=== PATIENT | male | born 1955 | race Caucasian/White ===

== ENCOUNTER 2024-04-10 17:18 | Emergency (ER) | payer SELFPAY ==
[2024-04-10 17:30] VITALS: BP 176/102; PULSE 96; RESP 19; TEMP 98.4
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
== END 2024-04-10 19:21 | disposition left against medical advice (07) ==
LOC: EC 17:18
CPT/HCPCS: 71046; 72170; 93005; 99284

== ENCOUNTER 2024-04-28 09:39 | Emergency (ER) | payer MEDICARE ==
[2024-04-28 10:02] VITALS: RESP 18
--- NOTE | 2024-04-28 10:07 | ED ---
General Adult HPI - General Chief complaint: Upper Respiratory Infection Stated complaint: congestion/cough Time Seen by Provider: 04/28/24 09:51 Source: patient, RN notes reviewed Mode of arrival: ambulatory Limitations: no limitations - History of Present Illness Initial comments: This is a 68-year-old male presents the emergency department chief complaint of congestion, cough, anterior chest wall pain, body aches. States that his symptoms have been ongoing over the past 3 to 5 days. States that he is currently living in a care home where multiple people at the house are also exhibiting similar symptoms. He denies chest pain, heart palpitations, dizziness, lightheadedness. He also endorses body aches. Denies recent antibiotic use. - Related Data Allergies Allergy/AdvReac Type Severity Reaction Status Date / Time No Known Allergies Allergy Verified 04/28/24 09:47 Review of Systems ROS Statement: Those systems with pertinent positive or pertinent negative responses have been documented in the HPI. ROS Other: All systems not noted in ROS Statement are negative. Past Medical History Past Medical History: Diabetes Mellitus, Osteoarthritis (OA) History of Any Multi-Drug Resistant Organisms: None Reported Additional Past Surgical History / Comment(s): Left foot surgery 2013 Past Psychological History: No Psychological Hx Reported Smoking Status: Never smoker Past Alcohol Use History: None Reported Past Drug Use History: None Reported General Exam Limitations: no limitations General appearance: alert, in no apparent distress Eye exam: Present: normal appearance, PERRL, EOMI. Absent: scleral icterus, conjunctival injection, periorbital swelling ENT exam: Present: normal exam, mucous membranes moist Neck exam: Present: normal inspection. Absent: tenderness, meningismus, lymphadenopathy Respiratory exam: Present: normal lung sounds bilaterally. Absent: respiratory distress, wheezes, rales, rhonchi, stridor Cardiovascular Exam: Present: regular rate, normal rhythm, normal heart sounds. Absent: systolic murmur, diastolic murmur, rubs, gallop, clicks GI/Abdominal exam: Present: soft, normal bowel sounds. Absent: distended, tenderness, guarding, rebound, rigid Extremities exam: Present: normal inspection, full ROM, normal capillary refill. Absent: tenderness, pedal edema, joint swelling, calf tenderness Back exam: Present: normal inspection Neurological exam: Present: alert, oriented X3, CN II-XII intact Skin exam: Present: warm, dry, intact, normal color. Absent: rash Course Vital Signs 04/28/24 04/28/24 04/28/24 09:49 09:58 12:18 Temperature 97.4 F L 98.2 F Pulse Rate 100 83 Respiratory 26 H 18 18 Rate Blood Pressure 117/74 151/80 O2 Sat by Pulse 98 99 Oximetry Medical Decision Making - Medical Decision Making Was pt. sent in by a medical professional or institution (, DECLAN, MANUFACTURING WEAVER, urgent care, hospital, or custodial...) When possible be specific @ -No Did you speak to anyone other than the patient for history (EMS, parent, family, police, friend...)? What history was obtained from this source @ -No Did you review nursing and triage notes (agree or disagree)? Why? @ -I reviewed and agree with nursing and triage notes Were old charts reviewed (outside hosp., previous admission, EMS record, old EKG, old radiological studies, urgent care reports/EKG's, custodial records)? Report findings @ -No old charts were reviewed Differential Diagnosis (chest pain, altered mental status, abdominal pain women, abdominal pain men, vaginal bleeding, weakness, fever, dyspnea, syncope, headache, dizziness, GI bleed, back pain, seizure, CVA, palpatations, mental health, musculoskeletal)? @ -COVID 19, RSV, influenza, pneumonia, acute bronchitis, URI, this list is not all inclusive EKG interpreted by me (3pts min.). @ -None X-rays interpreted by me (1pt min.). @ -Chest x-ray reveals no acute cardiopulmonary process or disease with COPD changes CT interpreted by me (1pt min.). @ -None done U/S interpreted by me (1pt. min.). @ -None done What testing was considered but not performed or refused? (CT, X-rays, U/S, labs)? Why? @ -None What meds were considered but not given or refused? Why? @ -None Did you discuss the management of the patient with other professionals (professionals i.e. DECLAN Byrd, MANUFACTURING WEAVER, lab, RT, psych nurse, social organization professor, varnish thinner, teacher, senior commercial loan officer, case resource manager)? Give summary @ -No Was smoking cessation discussed for >3mins.? @ -No Was critical care preformed (if so, how long)? @ -No Were there social determinants of health that impacted care today? How? (Homelessness, low income, unemployed, alcoholism, drug addiction, transportation, low edu. Level, literacy, decrease access to med. care, senior living, rehab)? @ -No Was there de-escalation of care discussed even if they declined (Discuss DNR or withdrawal of care, Hospice)? DNR status @ -No What co-morbidities impacted this encounter? (DM, HTN, Smoking, COPD, CAD, Cancer, CVA, ARF, Chemo, Hep., AIDS, mental health diagnosis, sleep apnea, morbid obesity)? @ -None Was patient admitted / discharged? Hospital course, mention meds given and route, prescriptions, significant lab abnormalities, going to OR and other pertinent info. @ -Discharge. 68-year-old male with upper respiratory infection symptoms. On my evaluation patient is resting company no signs acute distress. His vitals are stable. Is noted to have reproducible anterior chest wall pain to palpation states that he is also exacerbated with coughing and deep inhalation. Patient's symptoms are most likely musculoskeletal related to infection rather than cardiac in nature. Patient is provided with Tylenol pending laboratory results and x-ray. X-ray relatively unremarkable for COPD changes. Patient is negative for COVID, flu, RSV, and strep. Patient provided with dose of Solu-Medrol with mild wheezing on examination. Recommend that he continue supportive treatment at home and return to the emergency room for any new or worsening symptoms. Case discussed with my attending Dr. Kline Undiagnosed new problem with uncertain prognosis? @ -No Drug Therapy requiring intensive monitoring for toxicity (Heparin, Nitro, Insulin, Cardizem)? @ -No Were any procedures done? @ -No Diagnosis/symptom? @ -congestion, cough, viral syndrome Acute, or Chronic, or Acute on Chronic? @ -Acute Uncomplicated (without systemic symptoms) or Complicated (systemic symptoms)? @ -Uncomplicated Side effects of treatment? @ -No Exacerbation, Progression, or Severe Exacerbation? @ -No Poses a threat to life or bodily function? How? (Chest pain, [place], [place], pneumonia, PE, COPD, DKA, ARF, appy, cholecystitis, CVA, Diverticulitis, Homicidal, Suicidal, threat to staff... and all critical care pts) @ -No - Lab Data Lab Results 04/28/24 04/28/24 Range/Units 10:46 10:46 Influenza Type A (PCR) Not Detected (Not Detectd) Influenza Type B (PCR) Not Detected (Not Detectd) RSV (PCR) Not Detected (Not Detectd) SARS-CoV-2 (PCR) Not Detected (Not Detectd) Group A Strep (PCR) NOT DETECTED (Not Detectd) Disposition Clinical Impression: Cough, Viral syndrome Disposition: HOME SELF-CARE Condition: Good Instructions (If sedation given, give patient instructions): Viral Syndrome (ED) Additional Instructions: Please return to the Emergency Department if symptoms worsen or any other concerns. Continue supportive treatment at home cycling Tylenol Motrin as needed in addition to increasing hydration. Is patient prescribed a controlled substance at d/c from ED?: No Referrals: None,Stated [Primary Care Provider] - 1-2 days Time of Disposition: 12:00
[2024-04-28] MEDS: ACETAMINOPHEN TAB 500 MG TAB PO STA (10:34)
--- NOTE | 2024-04-28 10:50 | XR ---
EXAMINATION TYPE: XR chest 2V DATE OF EXAM: 04/28/2024 10:45 AM COMPARISON: Chest radiographs from 04/10/2024 TECHNIQUE: XR chest 2V Frontal and lateral views of the chest. CLINICAL INDICATION:Male, 68 years old with history of productive cough; FINDINGS: Lungs/Pleura: There is flattening of the diaphragm with increased lucency of the lungs. No evidence o f pneumothorax, pleural effusion or focal consolidation. Pulmonary vascularity: Unremarkable. Heart/mediastinum: Cardiomediastinal silhouette is unremarkable. Musculoskeletal: Multiple level degenerative disc disease changes seen throughout the spine. IMPRESSION: 1. No acute cardiopulmonary disease process. 2. COPD changes. [facility], , 04/28/2024 10:47 AM
[2024-04-28] MEDS: methylPREDNISolone SOD SUCCI 125 MG/2 ML VIAL IM ONE (11:58)
[2024-04-28 12:20] VITALS: BP 151/80; PULSE 83; TEMP 98.2
== END 2024-04-28 12:20 | disposition home or self-care (01) ==
LOC: EC 09:39
DX: B34.9 Viral infection, unspecified (principal)
CPT/HCPCS: 71046; 87636; 87651; 96372; 99283

== ENCOUNTER 2024-04-29 17:21 | Inpatient (IN) | payer MEDICARE ==
--- NOTE | 2024-04-29 17:29 | ED ---
General Adult HPI - General Stated complaint: ALYSSA - History of Present Illness Initial comments: Dictation was produced using [email or web address] dictation software. please excuse any grammatical, word or spelling errors. Chief Complaint: 68-year-old male presents to the emergency department for altered mental status History of Present Illness: Patient 68-year-old male brought in from behind a [employer] shop. He was noticed by bystanders that he was just laying there. EMS was called patient's apparently was unresponsive. Unclear what patient's medical history is. EMS noted that patient did have a wrist pain after being discharged from the hospital yesterday. States that patient's blood sugar was in the 400s. - Related Data Home Medications Medication Instructions Recorded Confirmed No Known Home Medications 04/29/24 04/29/24 Allergies Allergy/AdvReac Type Severity Reaction Status Date / Time No Known Allergies Allergy Verified 04/29/24 18:54 Review of Systems ROS Statement: Those systems with pertinent positive or pertinent negative responses have been documented in the HPI. ROS Other: All systems not noted in ROS Statement are negative. Past Medical History Past Medical History: Diabetes Mellitus, Osteoarthritis (OA) History of Any Multi-Drug Resistant Organisms: None Reported Additional Past Surgical History / Comment(s): Left foot surgery 2013 Past Psychological History: No Psychological Hx Reported Smoking Status: Never smoker Past Alcohol Use History: None Reported Past Drug Use History: None Reported General Exam - General Exam Comments Initial Comments: PHYSICAL EXAM: General Impression: Minimally responsive, backup administrative coordinator small respirations was of slight acetone HEENT: Normocephalic atraumatic, extra-ocular movements intact, pupils equal and reactive to light bilaterally, mucous membranes moist. Cardiovascular: Heart regular rate and rhythm Chest: dyspneic Abdomen: abdomen soft, non-tender, non-distended, no organomegaly Musculoskeletal: Pulses present and equal in all extremities, no peripheral edema Motor: no focal deficits noted Neurological: Grossly Skin: Intact with no visualized rashes Course Vital Signs 04/29/24 04/29/24 04/29/24 17:22 17:50 18:41 Temperature 85.8 F L 87.2 F L Pulse Rate 51 L 51 L Respiratory 26 H 26 H Rate Blood Pressure 108/55 93/55 104/55 O2 Sat by Pulse 98 97 Oximetry 04/29/24 19:04 Temperature Pulse Rate 59 L Respiratory 24 Rate Blood Pressure 102/47 O2 Sat by Pulse 98 Oximetry EKG Findings - EKG Comments: EKG Findings:: My EKG interpretation: Ventricular rate tachycardia, ventricular rate 51, VT 194, QRS 146, QTc 484 rotation limited due to significant artifact.. No VT prolongation, no QTC prolongation, no ST or T-wave changes noted. Medical Decision Making - Medical Decision Making Was pt. sent in by a medical professional or institution (, PA, TUBE TESTER, urgent care, hospital, or longterm...) When possible be specific @ -No Did you speak to anyone other than the patient for history (EMS, parent, family, police, friend...)? What history was obtained from this source @ -EMS as described above Did you review nursing and triage notes (agree or disagree)? Why? @ -I reviewed and agree with nursing and triage notes Were old charts reviewed (outside hosp., previous admission, EMS record, old EKG, old radiological studies, urgent care reports/EKG's, longterm records)? Report findings @ -Old charting was reviewed showing patient has history of diabetes Differential Diagnosis (chest pain, altered mental status, abdominal pain women, abdominal pain men, vaginal bleeding, musculoskeletal, weakness, fever, dyspnea, syncope, headache, dizziness, GI bleed, back pain, seizure, CVA, palpatations, mental health)? @ -Differential Altered Mental Status: Hypoglycemia, DKA, hypercapnia, ETOH, overdose, CO poisoning, trauma, myxedema coma, HTN encephalopathy, infection, encephalitis, psychosis, intercranial hemorrhage, hepatic encephalopathy, meningitis, CVA, this is not meant to be an all-inclusive list EKG interpreted by me (3pts min.). @ -See above X-rays interpreted by me (1pt min.). @ -None done CT interpreted by me (1pt min.). @ -CT brain shows no acute intracranial processes. There does appear to be evidence of bilateral sinusitis U/S interpreted by me (1pt. min.). @ -None done What testing was considered but not performed or refused? (CT, X-rays, U/S, labs)? Why? @ -None What meds were considered but not given or refused? Why? @ -None Was smoking cessation discussed for >3mins.? @ -No Were there social determinants of health that impacted care today? How? (Homelessness, low income, unemployed, alcoholism, drug addiction, tr ansportation, low edu. Level, literacy, decrease access to med. care, fdc, rehab)? @ -No Was there de-escalation of care discussed even if they declined (Discuss DNR or withdrawal of care, Hospice)? DNR status @ -No What co-morbidities impacted this encounter? (DM, HTN, Smoking, COPD, CAD, Cancer, CVA, ARF, Chemo, Hep., AIDS, mental health diagnosis, sleep apnea, morbid obesity)? @ -Diabetes mellitus Was patient admitted / discharged? Hospital course, mention meds given and route, prescriptions, significant lab abnormalities, going to OR and other pertinent info. @ -68-year-old male with history of diabetes presents to the emergency department for altered mental status. Vital signs upon arrival shows hypothermia of 85.8 pulse rate of 51 respiratory of 26. Blood pressure within acceptable limits. Laboratory evaluation obtained. Leukocytosis of 38.6. Venous pH of 6.82 with pCO2 of 23 bicarb of 5, pseudohyponatremia 122, glucose of 873. Tox labs negative. Acetone positive. Imaging studies shows no acute intracranial processes. There does appear to be bilateral sinusitis. Patient given Unasyn. Pending blood cultures. Patient reevaluated at bedside at 7:17 PM with improvement of his vitals and mentation. Patient be admitted to ICU for severe metabolic derangement Did you discuss the management of the patient with other professionals (professionals i.e. , PA, TUBE TESTER, lab, RT, psych nurse, high school social studies teacher, automatic furnace operator, teacher, hospital chief financial officer, catalytic case operator)? Give summary @ -Case discussed with room cooler installer for admission Was critical care preformed (if so, how long)? @ -Yes, 77 minutes Undiagnosed new problem with uncertain prognosis? @ -No Drug Therapy requiring intensive monitoring for toxicity (Heparin, Nitro, Insulin, Cardizem)? @ -No Were any procedures done? @ -No Diagnosis/symptom? Acute, or Chronic, or Acute on Chronic? Uncomplicated (without systemic symptoms) or Complicated (systemic symptoms)? @ -Acute DKA complicated by metabolic derangement Side effects of treatment? @ -No Exacerbation, Progression, or Severe Exacerbation? @ -No Poses a threat to life or bodily function? How? (Chest pain, [place], [place], pneumonia, PE, COPD, DKA, ARF, appy, cholecystitis, CVA, Diverticulitis, Homicidal, Suicidal, threat to staff... and all critical care pts) @ -yes - Lab Data Result diagrams: 04/29/24 17:50 04/29/24 17:50 Lab Results 04/29/24 04/29/24 04/29/24 Range/Units 17:24 17:50 17:50 WBC 38.6 H (3.8-10.6) k/uL RBC 5.15 (4.30-5.90) m/uL Hgb 13.4 (13.0-17.5) gm/dL Hct 47.9 (39.0-53.0) % MCV 93.0 (80.0-100.0) fL MCH 26.0 (25.0-35.0) pg MCHC 27.9 L (31.0-37.0) g/dL RDW 15.9 H (11.5-15.5) % Plt Count 506 H (150-450) k/uL MPV 8.9 Neutrophils % (Manual) 70 % Band Neuts % (Manual) 7 % Lymphocytes % (Manual) 7 % Monocytes % (Manual) 13 % Metamyelocytes % 3 % Myelocytes % 1 % Neutrophils # (Manual) 29.70 H (1.3-7.7) k/uL Lymphocytes # (Manual) 2.70 (1.0-4.8) k/uL Monocytes # (Manual) 5.02 H (0-1.0) k/uL Metamyelocytes # (Man) 1.16 H (0) k/uL Myelocytes # (Manual) 0.39 H (0) k/uL Nucleated RBCs 0 (0-0) /100 WBC Manual Slide Review Performed Toxic Granulation Present Hypochromasia Marked VBG pH (7.31-7.41) VBG pCO2 (37-51) mmHg Sodium 122 L (137-145) mmol/L Potassium 5.0 (3.5-5.1) mmol/L Chloride 91 L (98-107) mmol/L Carbon Dioxide <5 L* (22-30) mmol/L Anion Gap mmol/L BUN 45 H (9-20) mg/dL Creatinine 1.92 H (0.66-1.25) mg/dL Est GFR (CKD-EPI)AfAm 40 (>60 ml/min/1.73 sqM) Est GFR (CKD-EPI)NonAf 35 (>60 ml/min/1.73 sqM) Glucose 873 H* (74-99) mg/dL POC Glucose (mg/dL) >600 H* (70-110) mg/dL POC Glu Community Program Assistant ID Collin Guerra Plasma Lactic Acid Oliverio (0.7-2.0) mmol/L Calcium 8.7 (8.4-10.2) mg/dL Magnesium 3.0 H (1.6-2.3) mg/dL Total Bilirubin 0.9 (0.2-1.3) mg/dL AST 34 (17-59) U/L ALT 25 (4-49) U/L Alkaline Phosphatase 162 H (38-126) U/L Total Protein 6.7 (6.3-8.2) g/dL Albumin 3.9 (3.5-5.0) g/dL Salicylates <1.0 mg/dL Acetaminophen <10.0 ug/mL Serum Alcohol <10 mg/dL Acetone, Qual Positive (Negative) 04/29/24 04/29/24 Range/Units 17:50 17:50 WBC (3.8-10.6) k/uL RBC (4.30-5.90) m/uL Hgb (13.0-17.5) gm/dL Hct (39.0-53.0) % MCV (80.0-100.0) fL MCH (25.0-35.0) pg MCHC (31.0-37.0) g/dL RDW (11.5-15.5) % Plt Count (150-450) k/uL MPV Neutrophils % (Manual) % Band Neuts % (Manual) % Lymphocytes % (Manual) % Monocytes % (Manual) % Metamyelocytes % % Myelocytes % % Neutrophils # (Manual) (1.3-7.7) k/uL Lymphocytes # (Manual) (1.0-4.8) k/uL Monocytes # (Manual) (0-1.0) k/uL Metamyelocytes # (Man) (0) k/uL Myelocytes # (Manual) (0) k/uL Nucleated RBCs (0-0) /100 WBC Manual Slide Review Toxic Granulation Hypochromasia VBG pH <6.82 L* (7.31-7.41) VBG pCO2 23 L (37-51) mmHg Sodium (137-145) mmol/L Potassium (3.5-5.1) mmol/L Chloride (98-107) mmol/L Carbon Dioxide (22-30) mmol/L Anion Gap mmol/L BUN (9-20) mg/dL Creatinine (0.66-1.25) mg/dL Est GFR (CKD-EPI)AfAm (>60 ml/min/1.73 sqM) Est GFR (CKD-EPI)NonAf (>60 ml/min/1.73 sqM) Glucose (74-99) mg/dL POC Glucose (mg/dL) (70-110) mg/dL POC Glu Community Program Assistant ID Plasma Lactic Acid Oliverio 3.5 H* (0.7-2.0) mmol/L Calcium (8.4-10.2) mg/dL Magnesium (1.6-2.3) mg/dL Total Bilirubin (0.2-1.3) mg/dL AST (17-59) U/L ALT (4-49) U/L Alkaline Phosphatase (38-126) U/L Total Protein (6.3-8.2) g/dL Albumin (3.5-5.0) g/dL Salicylates mg/dL Acetaminophen ug/mL Serum Alcohol mg/dL Acetone, Qual (Negative) Disposition Clinical Impression: DKA (diabetic ketoacidosis) Disposition: [facility] Condition: Critical Time of Disposition: 19:19
[2024-04-29 17:30] LABS: Glucose,Whole Blood >600 mg/dL (70-110)
[2024-04-29] MEDS: SODIUM CHLORIDE 0.9% 2,000 ML IV STA (17:51)
[2024-04-29 18:03] LABS: HCT 47.9 % (39.0-53.0); HGB 13.4 gm/dL (13.0-17.5); Hypochromasia Marked; MCHC 27.9 g/dL (31.0-37.0); Mean Platelet Volume 8.9; Platelet Count 506 k/uL (150-450); RBC 5.15 m/uL (4.30-5.90); RDW 15.9 % (11.5-15.5); VBG PCO2 23 mmHg (37-51); WBC 38.6 k/uL (3.8-10.6)
[2024-04-29 18:15] LABS: ALT 25 U/L (4-49); AST 34 U/L (17-59); Acetaminophen <10.0 ug/mL; Albumin 3.9 g/dL (3.5-5.0); Alcohol <10 mg/dL; Alkaline Phosphatase 162 U/L (38-126); Blood Urea Nitrogen 45 mg/dL (9-20); Calcium 8.7 mg/dL (8.4-10.2); Chloride 91 mmol/L (98-107); Salicylate <1.0 mg/dL; Sodium 122 mmol/L (137-145); Total Bilirubin 0.9 mg/dL (0.2-1.3); Total Protein 6.7 g/dL (6.3-8.2)
[2024-04-29 18:20] LABS: African American GFR (CKD) 40 (>60 ml/min/1.73 sqM); Non-African American GFR(CKD) 35 (>60 ml/min/1.73 sqM)
[2024-04-29 18:23] LABS: VBG PH <6.82 (7.31-7.41)
[2024-04-29 18:26] LABS: Carbon Dioxide <5 mmol/L (22-30); Glucose 873 mg/dL (74-99)
[2024-04-29] MEDS ORDERED: DEXTROSE 50% SYRINGE 50 ML IVP PRN ×2 (18:27)
[2024-04-29] MEDS ORDERED: Potassium Replacement Protocol 1 EACH MISC MISCELLANE PRN (18:27)
[2024-04-29] MEDS ORDERED: Magnesium Replacement Protocol 1 EACH MISC MISCELLANE PRN (18:27)
[2024-04-29] MEDS ORDERED: NALOXONE 0.4 MG/ML 1 ML VIAL IV PRN (18:33)
[2024-04-29 18:43] LABS: Band Neutrophils % 7 %; Metamyelocytes # (M) 1.16 k/uL (0); Metamyelocytes % 3 %; Monocytes # (M) 5.02 k/uL (0-1.0); Myelocytes # (M) 0.39 k/uL (0); Myelocytes % 1 %; Neutrophils % (M) 70 %; Nucleated Red Blood Cells 0 /100 WBC (0-0); Total Cells Counted 200
[2024-04-29 18:44] LABS: Toxic Granulation Present
[2024-04-29] MEDS: INSULIN REGULAR BOLUS (FROM DRIP BAG) IV ONE (18:55)
[2024-04-29] MEDS: SODIUM CHLORIDE 0.9% 1,000 ML IV SCH (18:56)
[2024-04-29] MEDS: INSULIN REGULAR 100 UNIT in SODIUM CHLORIDE 0.9% 100 ML IV SCH (18:59)
--- NOTE | 2024-04-29 19:12 | CT ---
EXAMINATION TYPE: CT brain wo con DATE OF EXAM: 04/29/2024 COMPARISON: None HISTORY: 68-year-old male confusion, AMS. Found unresponsive. TECHNIQUE: Examination was done in axial plane without intravenous contrast. Coronal and sagittal r econstructions performed. CT DLP: 1205.5 mGycm Automated exposure control for dose reduction was used. FINDINGS: There is no evidence of acute intracranial hemorrhage, acute ischemic changes, mass, mass-effect, or extra-axial fluid collection. There is no effacement of cerebral sulci or basal subarachnoid cister ns. There is no hydrocephalus. There is no midline shift. Fragoso-white matter distinction is preserv ed. Benign basal ganglia calcifications. Mild generalized cerebral atrophy. Partial opacification with air fluid levels bilateral maxillary sinuses. Moderate to severe mucosal t hickening throughout the ethmoid air cells. Rightward nasal septal deviation. Mastoid air cells are w ell pneumatized. Orbits and globes appear intact. IMPRESSION: 1. Mild age-related cerebral atrophy. No acute intracranial abnormality seen. 2. Acute bilateral maxillary sinusitis. Severe chronic ethmoid sinus disease. [facility], , 04/29/2024 7:10 PM
[2024-04-29 19:33] LABS: Glucose,Whole Blood >600 mg/dL (70-110)
--- NOTE | 2024-04-29 20:27 | P.HPIM ---
History of Present Illness H&P Date: 04/29/24 Chief Complaint: UNRESPONSIVE History of present illness; Usama Murray 68-year-old male with past medical history of diabetes mellitus type 1, presents with metabolic encephalopathy. Patient was seen in ER yesterday for vital syndrome and cough, afebrile and was subsequently discharged with negative viral panel. Today, patient was [place] [employer] by bystanders and was unresponsive. He states he does not take insulin regularly and he has moderate abdominal pain. Further history limited by lethargy and confusion. Initial lab work done in the ER showed WBC 38.6, hemoglobin 13.4, platelets 506, VBG pH<6.82, pCO2 23, sodium 122, potassium 5.0, chloride 91, bicarb<5, BUN 45, creatinine 1.92, glucose 873, venous lactic acid 3.5, magnesium 3.0, ALP 162, ac etone positive, toxicology negative for alcohol, acetaminophen, salicylates. EKG done in the ER independently interpreted showed heart rate of 51, no ST segment elevation or depression seen, no T-wave inversions seen. CT head done independently interpreted showed no acute intracranial process. Patient admitted to internal medicine service for treatment of DKA and metabolic encephalopathy. REVIEW OF SYSTEMS: Limited due to confusion and lethargy. PHYSICAL EXAMINATION: Vitals reviewed GENERAL: Lethargic, well developed, well nourished. Camacho cath in place HEENT: Pupils are round and equally reacting to light. EOMI. No scleral icterus. Normocephalic, atraumatic. Dry mucous membranes. No thyromegaly. CARDIOVASCULAR: S1 and S2 present. No murmurs, rubs, or gallops. PULMONARY: labored breathing ABDOMEN: Soft, mild epigastric tenderness, nondistended, normoactive bowel sounds. No palpable organomegaly. MUSCULOSKELETAL: Osteoarthritic joint swelling in hands EXTREMITIES: No apparent cyanosis, clubbing, or pedal edema. NEUROLOGICAL: The patient is alert and oriented x3, Gross neurological examination did not reveal any focal deficits. 5/5 Strength bilateral UE and LE SKIN: No apparent rashes. Labs reviewed Imaging reviewed Assessment and plan Usama Murray 68-year-old male with diabetes mellitus type 1 non compliant , presents with metabolic encephalopathy I discussed the case with ED doc and I accepted the admission to the ICU for DKA coma , and leukocytosisrule out infectious causes with anticipated length of stay > 2 midnights # Acute metabolic encephalopathy # Diabetic ketoacidosis Coma #Diabetes mellitus, type I #Pseudo hyponatremia corrected Na is 138 blood sugar elevated initial 878, positive acetone in urine , bicarb low <5 Given 2L NS in ER Continue IV NS at 200 mL/h transition to d5% d.45 when blood sugar <300 Potassium and magnesium replacement per protocol - initially started on bicarb infusion for severe acidosis , discontinue when patient more awake and bicarb above 5 Continue insulin infusion , check blood sugar every 1 hour Phosphorus, BUN, creatinine, electrolytes every 4 hours, CBC every 6 hour Ordered HbA1c - Pulm/Crit consulted # Rhabdomyolysis # Acute kidney injury, oliguric due to dehydration Initial BUN 45, Cr 1.92 -continue IV fluids as above -Pending serum osmolality - Avoid nephrotoxic medications CPK level elevated continue to trend down , currently high at >1500 #Hypothermia, due to exposure, improving Initial temperature 87.2 => 89.2 warm IV NS given, warm blanket #Leukocytosis, likely reactive Initial WBC 38.6 Pending blood culture Continue Unasyn Rule out infectious process F: IV fluid as above, p.o. as tolerated E: Replete as needed N: clear liquids E: None DVT ppx: Subq heparin 5000 units Code status: Full code Anticipated discharge place: Intermediate/nursing facility Anticipated discharge time: 3 to 4 days Dictation was produced using [employer] dictation software. Please excuse any grammatical, word or spelling errors. Past Medical History Past Medical History: Diabetes Mellitus, Osteoarthritis (OA) History of Any Multi-Drug Resistant Organisms: None Reported Additional Past Surgical History / Comment(s): Left foot surgery 2013 Past Psychological History: No Psychological Hx Reported Smoking Status: Never smoker Past Alcohol Use History: None Reported Past Drug Use History: None Reported Medications and Allergies Home Medications Medication Instructions Recorded Confirmed Type No Known Home Medications 04/29/24 04/29/24 History Allergies Allergy/AdvReac Type Severity Reaction Status Date / Time No Known Allergies Allergy Verified 04/29/24 18:54 Physical Exam Vitals: Vital Signs Temp Pulse Resp BP Pulse Ox 04/29/24 19:30 66 28 H 103/43 99 04/29/24 19:04 59 L 24 102/47 98 04/29/24 18:41 87.2 F L 104/55 04/29/24 17:50 51 L 26 H 93/55 97 04/29/24 17:22 85.8 F L 51 L 26 H 108/55 98 Intake and Output 04/29/24 04/29/24 04/29/24 06:59 14:59 22:59 Other: Weight 72.575 kg Results CBC & Chem 7: 04/29/24 17:50 04/29/24 20:18 Labs: Abnormal Lab Results - Last 24 Hours (Table) 04/29/24 04/29/24 04/29/24 Range/Units 17:24 17:50 17:50 WBC 38.6 H (3.8-10.6) k/uL MCHC 27.9 L (31.0-37.0) g/dL RDW 15.9 H (11.5-15.5) % Plt Count 506 H (150-450) k/uL Neutrophils # (Manual) 29.70 H (1.3-7.7) k/uL Monocytes # (Manual) 5.02 H (0-1.0) k/uL Metamyelocytes # (Man) 1.16 H (0) k/uL Myelocytes # (Manual) 0.39 H (0) k/uL VBG pH (7.31-7.41) VBG pCO2 (37-51) mmHg Sodium 122 L (137-145) mmol/L Chloride 91 L (98-107) mmol/L Carbon Dioxide <5 L* (22-30) mmol/L BUN 45 H (9-20) mg/dL Creatinine 1.92 H (0.66-1.25) mg/dL Glucose 873 H* (74-99) mg/dL POC Glucose (mg/dL) >600 H* (70-110) mg/dL Plasma Lactic Acid Oliverio (0.7-2.0) mmol/L Magnesium 3.0 H (1.6-2.3) mg/dL Alkaline Phosphatase 162 H (38-126) U/L 04/29/24 04/29/24 04/29/24 Range/Units 17:50 17:50 19:31 WBC (3.8-10.6) k/uL MCHC (31.0-37.0) g/dL RDW (11.5-15.5) % Plt Count (150-450) k/uL Neutrophils # (Manual) (1.3-7.7) k/uL Monocytes # (Manual) (0-1.0) k/uL Metamyelocytes # (Man) (0) k/uL Myelocytes # (Manual) (0) k/uL VBG pH <6.82 L* (7.31-7.41) VBG pCO2 23 L (37-51) mmHg Sodium (137-145) mmol/L Chloride (98-107) mmol/L Carbon Dioxide (22-30) mmol/L BUN (9-20) mg/dL Creatinine (0.66-1.25) mg/dL Glucose (74-99) mg/dL POC Glucose (mg/dL) >600 H* (70-110) mg/dL Plasma Lactic Acid Oliverio 3.5 H* (0.7-2.0) mmol/L Magnesium (1.6-2.3) mg/dL Alkaline Phosphatase (38-126) U/L Assessment and Plan Assessment: I have seen and evaluated the patient today. I Discussed the case with the resident and agree with the resident's findings I edited the assessment and plan as necessary as documented in the resident's note.
[2024-04-29 20:34] LABS: Glucose,Whole Blood >600 mg/dL (70-110)
[2024-04-29] MEDS: DEXTROSE 5% IN WATER 1,000 ML with SODIUM BICARB (1 MEQ/ML) 150 ML IV SCH (20:34)
[2024-04-29 20:37] LABS: Appearance,Urine Clear (Clear); Bacteria,Urine Rare /hpf; Bilirubin,Urine Negative (Negative); Blood,Urine Large (Negative); Color,Urine Colorless; Glucose,Urine (UA) 4+ (Negative); Hyaline Casts,Urine 5 /lpf (0-2); Leukocyte Esterase,Urine Negative (Negative); Mucus,Urine Rare /hpf; Nitrite,Urine Negative (Negative); Protein,Urine 1+ (Negative); RBC,Urine <1 /hpf (0-5); Squamous Epithelial Cell,Urine <1 /hpf (0-4); Urobilinogen,Urine <2.0 mg/dL (<2.0); WBC,Urine 2 /hpf (0-5)
[2024-04-29 20:43] LABS: Blood Urea Nitrogen 46 mg/dL (9-20); Chloride 99 mmol/L (98-107); Phosphorus 7.6 mg/dL (2.5-4.5); Potassium 4.7 mmol/L (3.5-5.1); Sodium 124 mmol/L (137-145)
[2024-04-29 20:46] LABS: Amphetamine Screen,Urine Not Detected (NotDetected); Barbiturate Screen,Urine Not Detected (NotDetected); Benzodiazepines Screen,Urine Not Detected (NotDetected); Cocaine Screen,Urine Not Detected (NotDetected); Methadone Screen, Urine Not Detected (NotDetected); Opiate Screen,Urine Not Detected (NotDetected); Oxycodone Screen, Urine Not Detected (NotDetected); Phencyclidine Screen,Urine Not Detected (NotDetected); Tricyclic Antidepressant,Urine Not Detected (NotDetected); Urn Cannabinoid Scrn Not Detected (NotDetected)
[2024-04-29 20:49] LABS: African American GFR (CKD) 42 (>60 ml/min/1.73 sqM); Non-African American GFR(CKD) 37 (>60 ml/min/1.73 sqM)
[2024-04-29 20:54] LABS: Carbon Dioxide <5 mmol/L (22-30); Glucose 767 mg/dL (74-99)
[2024-04-29 20:56] LABS: Creatine Kinase 1562 U/L (55-170)
[2024-04-29 20:59] LABS: Ketones,Urine 3+ (Negative)
[2024-04-29 21:10] LABS: Glucose,Whole Blood >600 mg/dL (70-110)
[2024-04-29 21:47] LABS: Glucose,Whole Blood >600 mg/dL (70-110)
[2024-04-29] MEDS: AMPICILLIN-SULBACTAM 3 GM in SODIUM CHLORIDE 0.9% 100 ML IVPB SCH (22:35)
[2024-04-29 23:03] LABS: Glucose,Whole Blood 594 mg/dL (70-110)
[2024-04-30 00:07] LABS: Glucose,Whole Blood 517 mg/dL (70-110)
[2024-04-30 00:21] LABS: Anisocytosis Slight; Basophils # (A) 0.1 k/uL (0-0.2); Basophils % (A) 0 %; Eosinophils % (A) 0 %; HCT 40.4 % (39.0-53.0); HGB 12.9 gm/dL (13.0-17.5); Hypochromasia Slight; Lymphocytes # (A) 1.8 k/uL (1.0-4.8); Lymphocytes % (A) 7 %; MCH 26.8 pg (25.0-35.0); Mean Platelet Volume 7.9; Monocytes # (A) 1.5 k/uL (0-1.0); Monocytes % (A) 6 %; Neutrophils # (A) 22.2 k/uL (1.3-7.7); Neutrophils % (A) 86 %; Platelet Count 329 k/uL (150-450); RBC 4.82 m/uL (4.30-5.90); WBC 25.9 k/uL (3.8-10.6)
[2024-04-30 00:22] LABS: MCV 83.8 fL (80.0-100.0)
[2024-04-30 00:27] LABS: African American GFR (CKD) 47 (>60 ml/min/1.73 sqM); Blood Urea Nitrogen 44 mg/dL (9-20); Chloride 103 mmol/L (98-107); Non-African American GFR(CKD) 41 (>60 ml/min/1.73 sqM); Potassium 4.3 mmol/L (3.5-5.1); Sodium 128 mmol/L (137-145)
[2024-04-30 00:56] LABS: Carbon Dioxide <5 mmol/L (22-30); Glucose 578 mg/dL (74-99)
[2024-04-30] MEDS: HEPARIN SODIUM,PORCINE 5,000 UNIT/ML 1 ML VIAL SQ SCH (00:57)
[2024-04-30 01:13] LABS: Glucose,Whole Blood 492 mg/dL (70-110)
[2024-04-30 02:29] LABS: Glucose,Whole Blood 356 mg/dL (70-110)
[2024-04-30 03:20] LABS: Glucose,Whole Blood 339 mg/dL (70-110)
[2024-04-30 03:44] LABS: Anisocytosis Slight; Basophils % (A) 0 %; Eosinophils # (A) 0.1 k/uL (0-0.7); Eosinophils % (A) 0 %; HCT 37.3 % (39.0-53.0); HGB 12.6 gm/dL (13.0-17.5); Lymphocytes # (A) 0.8 k/uL (1.0-4.8); Lymphocytes % (A) 5 %; MCH 26.8 pg (25.0-35.0); MCHC 33.7 g/dL (31.0-37.0); MCV 79.4 fL (80.0-100.0); Mean Platelet Volume 7.5; Microcytosis Slight; Monocytes % (A) 6 %; Neutrophils # (A) 15.8 k/uL (1.3-7.7); Neutrophils % (A) 89 %; Platelet Count 290 k/uL (150-450); RDW 16.3 % (11.5-15.5); WBC 17.9 k/uL (3.8-10.6)
[2024-04-30 03:52] LABS: African American GFR (CKD) >90 (>60 ml/min/1.73 sqM); Anion Gap 10 mmol/L; Blood Urea Nitrogen 37 mg/dL (9-20); Carbon Dioxide 10 mmol/L (22-30); Chloride 107 mmol/L (98-107); Glucose 338 mg/dL (74-99); Non-African American GFR(CKD) 81 (>60 ml/min/1.73 sqM); Phosphorus 2.2 mg/dL (2.5-4.5); Potassium 3.5 mmol/L (3.5-5.1); Sodium 127 mmol/L (137-145)
[2024-04-30 04:32] LABS: Glucose,Whole Blood 295 mg/dL (70-110)
[2024-04-30] MEDS: D5-0.45% NACL WITH KCL 20MEQ/L 1,000 ML IV SCH (04:34)
[2024-04-30 05:41] LABS: Glucose,Whole Blood 300 mg/dL (70-110)
[2024-04-30 07:04] LABS: Glucose,Whole Blood 241 mg/dL (70-110)
[2024-04-30 08:12] LABS: African American GFR (CKD) >90 (>60 ml/min/1.73 sqM); Anion Gap 6 mmol/L; Blood Urea Nitrogen 31 mg/dL (9-20); Calcium 8.1 mg/dL (8.4-10.2); Carbon Dioxide 17 mmol/L (22-30); Chloride 108 mmol/L (98-107); Glucose 235 mg/dL (74-99); Non-African American GFR(CKD) >90 (>60 ml/min/1.73 sqM); Phosphorus 1.8 mg/dL (2.5-4.5); Potassium 3.3 mmol/L (3.5-5.1); Sodium 131 mmol/L (137-145)
[2024-04-30 08:28] LABS: Glucose,Whole Blood 215 mg/dL (70-110)
--- NOTE | 2024-04-30 08:56 | XR ---
EXAMINATION TYPE: XR chest 1V portable DATE OF EXAM: 04/30/2024 Comparison: 04/28/2024 Clinical History: 68-year-old male sepsis Findings: Heart borderline in size. Increased interstitial density. Some patchy left basilar and retrocardiac o pacity has developed as well. Impression: Interval development of mild interstitial density and patchy retrocardiac and left basilar opacity. C orrelate for atypical pneumonia versus developing pulmonary vascular congestion. [facility], , 04/30/2024 8:54 AM
[2024-04-30 09:03] LABS: Glucose,Whole Blood 195 mg/dL (70-110)
[2024-04-30] MEDS: POTASSIUM CHLORIDE 10 MEQ in WATER FOR INJECTION 1 100ML.BAG IVPB SCH ×3 (09:39→23:04)
[2024-04-30 10:05] LABS: Glucose,Whole Blood 158 mg/dL (70-110)
[2024-04-30 11:15] LABS: Glucose,Whole Blood 122 mg/dL (70-110)
[2024-04-30 12:00] LABS: Glucose,Whole Blood 121 mg/dL (70-110)
--- NOTE | 2024-04-30 12:27 | P.CNPUL ---
History of Present Illness Consult date: 04/30/24 Requesting physician: Neel Sanderson Reason for consult: other (ICU management/DKA) Chief complaint: Altered mental status History of present illness: This is a 68-year-old white male with history of type 1 diabetes, presented to the ER with altered mental status, picture of metabolic encephalopathy, patient was actually in the ER the day before with symptoms of acute viral illness mostly cough, he had no fever, patient had negative workup and he was discharged home from the ER. The following day which is yesterday patient was found behind [employer] laying unresponsive and seen by bystanders. EMS was notified, patient was brought into the ER and he was noted to have acute diabetic ketoacidosis with hyperglycemia with sugar as high as over 600 his ketones were positive. Patient had significant anion gap metabolic acidosis with venous blood gas showing pH less than 6.82. Patient was placed on bicarb drip he was also placed on the DKA protocol, admitted to the ICU, and I saw the patient today on consultation, remains on insulin drip at 9.33 units/h patient is receiving D5 4 5 at 150 cc/h patient is empirically on Unasyn and he is on bicarb drip which I have discontinued this morning. His labs today showed bicarb of 17 potassium 3.3 anion gap is 6 BUN 31 creatinine 0.72. Blood sugar was 309 this morning. Drug screen came back basically unremarkableWBC count is 17.9 hemoglobin is 12.6, on admission the patient had WBC count of 25.9. Chest x-ray is suggestive of left lower lobe pneumonia and he does have right basilar atelectasis. Has patient is presently on Unasyn. CT of the brain came back unremarkable Review of Systems REVIEW OF SYSTEMS: CONSTITUTIONAL: Weakness fatigue EYES: Negative. ENT: Negative. Except for extremely dry throat unable to verbalize because of dry throat CARDIAC: Negative. PULMONARY: No cough no wheezing no shortness of breath GI: Negative. GENITOURINARY: Negative. MUSCULOSKELETAL: Negative. SKIN: Negative. NEUROPSYCH: Confusion upon presentation but the patient is not confused during my evaluation ENDOCRINE: History of type 1 diabetes HEMATOLOGIC: Negative. Past Medical History Past Medical History: Diabetes Mellitus, Osteoarthritis (OA) History of Any Multi-Drug Resistant Organisms: None Reported Additional Past Surgical History / Comment(s): Left foot surgery 2013 Past Psychological History: No Psychological Hx Reported Smoking Status: Never smoker Past Alcohol Use History: None Reported Past Drug Use History: None Reported Medications and Allergies Home Medications Medication Instructions Recorded Confirmed Type No Known Home Medications 04/29/24 04/29/24 History Allergies Allergy/AdvReac Type Severity Reaction Status Date / Time No Known Allergies Allergy Verified 04/29/24 18:54 Physical Exam Vitals: Vital Signs Temp Pulse Resp BP Pulse Ox 04/30/24 12:00 96.8 F L 92 22 116/63 95 04/30/24 11:00 96.3 F L 91 24 118/61 96 04/30/24 10:00 90 20 117/60 96 04/30/24 09:00 97.5 F L 92 23 115/59 94 L 04/30/24 08:00 97.7 F 92 16 103/61 97 04/30/24 07:00 100/53 96 04/30/24 06:00 94 24 113/61 97 04/30/24 05:00 93 21 115/66 96 04/30/24 04:00 98.1 F 92 24 114/62 96 04/30/24 03:00 92 21 114/67 97 04/30/24 02:00 92 26 H 117/62 97 04/30/24 01:00 90 27 H 122/65 98 04/30/24 00:00 97.0 F L 90 26 H 124/60 97 04/29/24 23:00 86 24 98 04/29/24 22:18 81 23 125/55 97 04/29/24 22:10 81 5 L 98 04/29/24 22:00 79 11 L 125/55 98 04/29/24 21:50 77 25 H 97 04/29/24 21:40 78 24 97 04/29/24 21:30 76 28 H 98 04/29/24 21:20 94.5 F L 77 25 H 124/62 97 04/29/24 21:11 77 21 98 04/29/24 20:32 91.6 F L 70 28 H 121/62 97 04/29/24 19:30 89.2 F L 66 28 H 103/43 99 04/29/24 19:04 59 L 24 102/47 98 04/29/24 18:41 87.2 F L 104/55 04/29/24 17:50 51 L 26 H 93/55 97 04/29/24 17:22 85.8 F L 51 L 26 H 108/55 98 Intake and Output 04/29/24 04/30/24 04/30/24 22:59 06:59 14:59 Intake Total 1240 2719.192 1305.588 Output Total 875 1860 460 Balance 365 859.192 845.588 Intake: IV 700 2100 200 Ampicillin-Sulbactam 3 gm 100 In Sodium Chloride 0.9% 100 ml @ 200 mls/hr IVPB Q8H [facility] Rx#:[id number] Dextrose 5% in Water 1, 200 700 200 000 ml @ 100 mls/hr IV . [id number] [facility] A with Sodium Bicarb (1 Meq/ml) 150 ml Rx#:[id number] Sodium Chloride 0.9% 1, 400 1400 000 ml @ 200 mls/hr IV . Q5H [facility] Rx#:[id number] Intake, IV Titration 79.192 1105.588 Amount D5-0.45% NaCl with KCl 750 20Meq/l 1,000 ml @ 150 mls/hr IV .[id number] [facility] Rx# :[id number] Insulin Regular 100 unit 79.192 55.588 In Sodium Chloride 0.9% 100 ml @ 0.1 UNITS/KG/HR 7.33 mls/hr IV .[id number] [facility] Rx#:[id number] Potassium Chloride 10 meq 300 In Water For Injection 1 100ml.bag @ 100 mls/hr IVPB Q1H [facility] Rx#: [id number] Oral 540 540 Output: Urine 875 1860 460 Uretheral (Camacho) 400 Other: Voiding Method Indwelling Catheter Indwelling Catheter Weight 72.575 kg 76.8 kg GENERAL: 68-year-old in no distress Head:: Atraumatic, normocephalic HEENT: Pupils are round and equally reacting to light. EOMI. No scleral icterus. Normocephalic, atraumatic. Extremely dry mucous membranes CARDIOVASCULAR: S1 and S2 present. No murmurs, rubs, or gallops. PULMONARY: Clear bilaterally no crackles rhonchi or wheezes ABDOMEN: Soft nontender no megaly no rebound no guarding MUSCULOSKELETAL: No deformities, no limitation range of motion EXTREMITIES: No apparent cyanosis, clubbing, or pedal edema. NEUROLOGICAL: Alert and oriented x 3 no gross focal deficits Psychiatric: Normal mood affect and no mental status examination. SKIN: No apparent rashes. Results - Laboratory Findings CBC and BMP: 04/30/24 03:33 04/30/24 07:45 Abnormal lab findings: Abnormal Labs 04/29/24 04/29/24 04/29/24 17:24 17:50 17:50 WBC 38.6 H Hgb Hct MCV MCHC 27.9 L RDW 15.9 H Plt Count 506 H Neutrophils # Neutrophils # (Manual) 29.70 H Lymphocytes # Monocytes # Monocytes # (Manual) 5.02 H Metamyelocytes # (Man) 1.16 H Myelocytes # (Manual) 0.39 H VBG pH VBG pCO2 Sodium 122 L Potassium Chloride 91 L Carbon Dioxide <5 L* BUN 45 H Creatinine 1.92 H Glucose 873 H* POC Glucose (mg/dL) >600 H* Hemoglobin A1c Osmolality 340 A* Plasma Lactic Acid Oliverio Calcium Phosphorus Magnesium 3.0 H Alkaline Phosphatase 162 H Creatine Kinase Urine Protein Urine Glucose (UA) Urine Ketones Urine Blood Urine Bacteria Hyaline Casts Urine Mucus 04/29/24 04/29/24 04/29/24 17:50 17:50 19:31 WBC Hgb Hct MCV MCHC RDW Plt Count Neutrophils # Neutrophils # (Manual) Lymphocytes # Monocytes # Monocytes # (Manual) Metamyelocytes # (Man) Myelocytes # (Manual) VBG pH <6.82 L* VBG pCO2 23 L Sodium Potassium Chloride Carbon Dioxide BUN Creatinine Glucose POC Glucose (mg/dL) >600 H* Hemoglobin A1c Osmolality Plasma Lactic Acid Oliverio 3.5 H* Calcium Phosphorus Magnesium Alkaline Phosphatase Creatine Kinase Urine Protein Urine Glucose (UA) Urine Ketones Urine Blood Urine Bacteria Hyaline Casts Urine Mucus 04/29/24 04/29/24 04/29/24 19:50 20:18 20:33 WBC Hgb Hct MCV MCHC RDW Plt Count Neutrophils # Neutrophils # (Manual) Lymphocytes # Monocytes # Monocytes # (Manual) Metamyelocytes # (Man) Myelocytes # (Manual) VBG pH VBG pCO2 Sodium 124 L Potassium Chloride Carbon Dioxide <5 L* BUN 46 H Creatinine 1.84 H Glucose 767 H* POC Glucose (mg/dL) >600 H* Hemoglobin A1c Osmolality Plasma Lactic Acid Oliverio Calcium Phosphorus 7.6 H Magnesium Alkaline Phosphatase Creatine Kinase 1562 H* Urine Protein 1+ H Urine Glucose (UA) 4+ H Urine Ketones 3+ H Urine Blood Large H Urine Bacteria Rare H Hyaline Casts 5 H Urine Mucus Rare H 04/29/24 04/29/24 04/29/24 21:08 21:46 23:01 WBC Hgb Hct MCV MCHC RDW Plt Count Neutrophils # Neutrophils # (Manual) Lymphocytes # Monocytes # Monocytes # (Manual) Metamyelocytes # (Man) Myelocytes # (Manual) VBG pH VBG pCO2 Sodium Potassium Chloride Carbon Dioxide BUN Creatinine Glucose POC Glucose (mg/dL) >600 H* >600 H* 594 H* Hemoglobin A1c Osmolality Plasma Lactic Acid Oliverio Calcium Phosphorus Magnesium Alkaline Phosphatase Creatine Kinase Urine Protein Urine Glucose (UA) Urine Ketones Urine Blood Urine Bacteria Hyaline Casts Urine Mucus 04/29/24 04/29/24 04/30/24 23:59 23:59 00:05 WBC 25.9 H Hgb 12.9 L Hct MCV MCHC RDW 16.0 H Plt Count Neutrophils # 22.2 H Neutrophils # (Manual) Lymphocytes # Monocytes # 1.5 H Monocytes # (Manual) Metamyelocytes # (Man) Myelocytes # (Manual) VBG pH VBG pCO2 Sodium 128 L Potassium Chloride Carbon Dioxide <5 L* BUN 44 H Creatinine 1.69 H Glucose 578 H* POC Glucose (mg/dL) 517 H* Hemoglobin A1c Osmolality Plasma Lactic Acid Oliverio Calcium Phosphorus Magnesium Alkaline Phosphatase Creatine Kinase Urine Protein Urine Glucose (UA) Urine Ketones Urine Blood Urine Bacteria Hyaline Casts Urine Mucus 04/30/24 04/30/24 04/30/24 01:11 02:28 03:18 WBC Hgb Hct MCV MCHC RDW Plt Count Neutrophils # Neutrophils # (Manual) Lymphocytes # Monocytes # Monocytes # (Manual) Metamyelocytes # (Man) Myelocytes # (Manual) VBG pH VBG pCO2 Sodium Potassium Chloride Carbon Dioxide BUN Creatinine Glucose POC Glucose (mg/dL) 492 H 356 H 339 H Hemoglobin A1c Osmolality Plasma Lactic Acid Oliverio Calcium Phosphorus Magnesium Alkaline Phosphatase Creatine Kinase Urine Protein Urine Glucose (UA) Urine Ketones Urine Blood Urine Bacteria Hyaline Casts Urine Mucus 04/30/24 04/30/24 04/30/24 03:33 03:33 03:33 WBC 17.9 H Hgb 12.6 L Hct 37.3 L MCV 79.4 L MCHC RDW 16.3 H Plt Count Neutrophils # 15.8 H Neutrophils # (Manual) Lymphocytes # 0.8 L Monocytes # Monocytes # (Manual) Metamyelocytes # (Man) Myelocytes # (Manual) VBG pH VBG pCO2 Sodium 127 L Potassium Chloride Carbon Dioxide 10 L BUN 37 H Creatinine Glucose 338 H POC Glucose (mg/dL) Hemoglobin A1c 12.4 H Osmolality Plasma Lactic Acid Oliverio Calcium 8.0 L Phosphorus 2.2 L Magnesium Alkaline Phosphatase Creatine Kinase Urine Protein Urine Glucose (UA) Urine Ketones Urine Blood Urine Bacteria Hyaline Casts Urine Mucus 04/30/24 04/30/24 04/30/24 04:29 05:39 07:02 WBC Hgb Hct MCV MCHC RDW Plt Count Neutrophils # Neutrophils # (Manual) Lymphocytes # Monocytes # Monocytes # (Manual) Metamyelocytes # (Man) Myelocytes # (Manual) VBG pH VBG pCO2 Sodium Potassium Chloride Carbon Dioxide BUN Creatinine Glucose POC Glucose (mg/dL) 295 H 300 H 241 H Hemoglobin A1c Osmolality Plasma Lactic Acid Oliverio Calcium Phosphorus Magnesium Alkaline Phosphatase Creatine Kinase Urine Protein Urine Glucose (UA) Urine Ketones Urine Blood Urine Bacteria Hyaline Casts Urine Mucus 04/30/24 04/30/24 04/30/24 07:45 08:27 09:02 WBC Hgb Hct MCV MCHC RDW Plt Count Neutrophils # Neutrophils # (Manual) Lymphocytes # Monocytes # Monocytes # (Manual) Metamyelocytes # (Man) Myelocytes # (Manual) VBG pH VBG pCO2 Sodium 131 L Potassium 3.3 L Chloride 108 H Carbon Dioxide 17 L BUN 31 H Creatinine Glucose 235 H POC Glucose (mg/dL) 215 H 195 H Hemoglobin A1c Osmolality Plasma Lactic Acid Oliverio Calcium 8.1 L Phosphorus 1.8 L Magnesium Alkaline Phosphatase Creatine Kinase Urine Protein Urine Glucose (UA) Urine Ketones Urine Blood Urine Bacteria Hyaline Casts Urine Mucus 04/30/24 04/30/24 04/30/24 10:04 11:13 11:58 WBC Hgb Hct MCV MCHC RDW Plt Count Neutrophils # Neutrophils # (Manual) Lymphocytes # Monocytes # Monocytes # (Manual) Metamyelocytes # (Man) Myelocytes # (Manual) VBG pH VBG pCO2 Sodium Potassium Chloride Carbon Dioxide BUN Creatinine Glucose POC Glucose (mg/dL) 158 H 122 H 121 H Hemoglobin A1c Osmolality Plasma Lactic Acid Oliverio Calcium Phosphorus Magnesium Alkaline Phosphatase Creatine Kinase Urine Protein Urine Glucose (UA) Urine Ketones Urine Blood Urine Bacteria Hyaline Casts Urine Mucus - Diagnostic Findings Chest x-ray: image reviewed (As noted in HPI chest x-ray is suggestive of pneumonia) Assessment and Plan Assessment: Impression: Acute diabetic ketoacidosis Acute left lower lobe pneumonia and right lower lobe atelectasis/possible pneumonia suspect some component of aspiration Pseudohyponatremia on presentation related to elevated blood sugar History of type 1 diabetes acute kidney injury most likely secondary to hypovolemia Hypothermia on presentation most likely secondary to exposure Acute metabolic encephalopathy, resolved Recommendation: Continue DKA protocol Continue antibiotics Continue IV fluids GI and DVT prophylaxis Continue to monitor daily electrolytes and renal profile Continue to monitor in the ICU for today until the patient is off insulin drip Will continue to follow Time with Patient: Greater than 30
--- NOTE | 2024-04-30 12:30 | P.PN ---
Subjective Progress Note Date: 04/30/24 68 year old M with PMH of type 1 DM presents to the ED for unresponsiveness and altered mental status. He was found unresponsive at a closed custard shop. Family that lived close to the shop had noted him sitting outside with his head down since 8AM. In the ED he underwent extensive evaluation. T 85.8F, BP 108/55, RR 26, HR 51, 98% on RA. CBC, Coag panel, CMP significant for WBC 38.6, Plt 506, Na 122, Cl 91, bicarb < 5, BUN 45, Cr 1.92, glu 873, alk phos 162. Lactic acid 3.5. Mag 3. VBG pH < 6.82, pCO2 23. UA negative LE or nitrite. UDS neg. Salicylate, Acetaminophen, EtOH neg. Acetone positive. EKG sinus bradycardia. CT brain no acute process. Patient was bolused 1L NS, started on insulin drip and admitted to ICU for management of DKA. 04/30 Patient was seen and examined. Slow to respond but answering questions appropriately. Complaints of thirst. States he is homeless since February. CBC, BMP significant for WBC 17.9, Hg 12.6, Hct 37.3, MCV 79.4, Na 127, bicarb 10, BUN 37, glu 338, Ca 8. Phos 2.2. Maintained on insulin drip and D5 1/2 NS KCl 20 meq/L at 150 cc/hr. Antibiotics include Unasyn 3g IV TID. General: non toxic, no distress, appears at stated age Derm: warm, dry Head: atraumatic, normocephalic, symmetric Eyes: EOMI, no lid lag, anicteric sclera Mouth: no lip lesion, mucus membranes moist Cardiovascular: S1S2 tachy, no murmur Lungs: Clear to auscultation bilaterally, no rhonchi, no rales , no accessory muscle use Abd: Non distended. Non tender to palpation. Soft. Ext: no gross muscle atrophy, no edema, no contractures Neuro: no focal neuro deficits Psych: Alert, oriented x 2. Slow to respond Based on my assessment of this patient, this patient meets a high complexity level of care. Acute metabolic encephalopathy due to below Diabetic ketoacidosis: Continue insulin drip. Continue D5 1/2 NS KCl 20 meq/L at 150 cc/hr. Obtain A1c. BMP Q8H. Accuchecks Q1H. ICU admit. Sepsis likely SIRS due to DKA: Hypothermic. Tachypneic. No obvious signs of infection. UA neg. Follow BCx. Obtain CXR. Continue Unasyn 3g IV TID empirically. Hypothermia: Exposure to cold weather. Improving. Lactic acidosis: IV hydration as above. Acute kidney injury: Improving with IV hydration. Rhabdomyolysis: IV hydration as above. Pseudohyponatremia Microcytic anemia: Dilutional. No signs of active bleeding. Monitor Hg. CODE STATUS: FULL CODE. DVT Prophylaxis: Heparin SQ GI Prophylaxis: Designated medical POA if patient is not able to make medical decisions for themselves: I have reviewed the following [facility] consultant notes: Pulmonary. I have reviewed the results of the following tests: CBC, BMP, Phos. I have ordered the following tests: CXR. BMP Q8H. I have discussed the care of this patient with the following independent historian: I have independently interpreted the following test below: I have discussed the management of this patient with the following physician: Objective - Vital Signs Vital signs: Vital Signs Temp 98.1 F 04/30/24 04:00 Pulse 93 04/30/24 05:00 Resp 21 04/30/24 05:00 BP 115/66 04/30/24 05:00 Pulse Ox 96 04/30/24 05:00 FiO2 Intake & Output 04/29/24 04/30/24 04/30/24 18:59 06:59 18:59 Intake Total 3959.192 Output Total 2735 Balance 1224.192 Weight 72.575 kg 76.8 kg Intake: IV 2800 Ampicillin-Sulbactam 3 gm 100 In Sodium Chloride 0.9% 100 ml @ 200 mls/hr IVPB Q8H [facility] Rx#:[id number] Dextrose 5% in Water 1, 900 000 ml @ 100 mls/hr IV . [id number] [facility] A with Sodium Bicarb (1 Meq/ml) 150 ml Rx#:[id number] Sodium Chloride 0.9% 1, 1800 000 ml @ 200 mls/hr IV . Q5H [facility] Rx#:[id number] Intake, IV Titration 79.192 Amount Insulin Regular 100 unit 79.192 In Sodium Chloride 0.9% 100 ml @ 0.1 UNITS/KG/HR 7.33 mls/hr IV .[id number] [facility] Rx#:[id number] Oral 1080 Output: Urine 2735 Uretheral (Camacho) 400 Other: Voiding Method Indwelling Catheter - Labs CBC & Chem 7: 04/30/24 03:33 04/30/24 07:45 Labs: Abnormal Lab Results - Last 24 Hours (Table) 04/29/24 04/29/24 04/29/24 Range/Units 17:24 17:50 17:50 WBC 38.6 H (3.8-10.6) k/uL Hgb (13.0-17.5) gm/dL Hct (39.0-53.0) % MCV (80.0-100.0) fL MCHC 27.9 L (31.0-37.0) g/dL RDW 15.9 H (11.5-15.5) % Plt Count 506 H (150-450) k/uL Neutrophils # (1.3-7.7) k/uL Neutrophils # (Manual) 29.70 H (1.3-7.7) k/uL Lymphocytes # (1.0-4.8) k/uL Monocytes # (0-1.0) k/uL Monocytes # (Manual) 5.02 H (0-1.0) k/uL Metamyelocytes # (Man) 1.16 H (0) k/uL Myelocytes # (Manual) 0.39 H (0) k/uL VBG pH (7.31-7.41) VBG pCO2 (37-51) mmHg Sodium 122 L (137-145) mmol/L Chloride 91 L (98-107) mmol/L Carbon Dioxide <5 L* (22-30) mmol/L BUN 45 H (9-20) mg/dL Creatinine 1.92 H (0.66-1.25) mg/dL Glucose 873 H* (74-99) mg/dL POC Glucose (mg/dL) >600 H* (70-110) mg/dL Plasma Lactic Acid Oliverio (0.7-2.0) mmol/L Calcium (8.4-10.2) mg/dL Phosphorus (2.5-4.5) mg/dL Magnesium 3.0 H (1.6-2.3) mg/dL Alkaline Phosphatase 162 H (38-126) U/L Creatine Kinase (55-170) U/L Urine Protein (Negative) Urine Glucose (UA) (Negative) Urine Ketones (Negative) Urine Blood (Negative) Urine Bacteria (None) /hpf Hyaline Casts (0-2) /lpf Urine Mucus (None) /hpf 04/29/24 04/29/24 04/29/24 Range/Units 17:50 17:50 19:31 WBC (3.8-10.6) k/uL Hgb (13.0-17.5) gm/dL Hct (39.0-53.0) % MCV (80.0-100.0) fL MCHC (31.0-37.0) g/dL RDW (11.5-15.5) % Plt Count (150-450) k/uL Neutrophils # (1.3-7.7) k/uL Neutrophils # (Manual) (1.3-7.7) k/uL Lymphocytes # (1.0-4.8) k/uL Monocytes # (0-1.0) k/uL Monocytes # (Manual) (0-1.0) k/uL Metamyelocytes # (Man) (0) k/uL Myelocytes # (Manual) (0) k/uL VBG pH <6.82 L* (7.31-7.41) VBG pCO2 23 L (37-51) mmHg Sodium (137-145) mmol/L Chloride (98-107) mmol/L Carbon Dioxide (22-30) mmol/L BUN (9-20) mg/dL Creatinine (0.66-1.25) mg/dL Glucose (74-99) mg/dL POC Glucose (mg/dL) >600 H* (70-110) mg/dL Plasma Lactic Acid Oliverio 3.5 H* (0.7-2.0) mmol/L Calcium (8.4-10.2) mg/dL Phosphorus (2.5-4.5) mg/dL Magnesium (1.6-2.3) mg/dL Alkaline Phosphatase (38-126) U/L Creatine Kinase (55-170) U/L Urine Protein (Negative) Urine Glucose (UA) (Negative) Urine Ketones (Negative) Urine Blood (Negative) Urine Bacteria (None) /hpf Hyaline Casts (0-2) /lpf Urine Mucus (None) /hpf 04/29/24 04/29/24 04/29/24 Range/Units 19:50 20:18 20:33 WBC (3.8-10.6) k/uL Hgb (13.0-17.5) gm/dL Hct (39.0-53.0) % MCV (80.0-100.0) fL MCHC (31.0-37.0) g/dL RDW (11.5-15.5) % Plt Count (150-450) k/uL Neutrophils # (1.3-7.7) k/uL Neutrophils # (Manual) (1.3-7.7) k/uL Lymphocytes # (1.0-4.8) k/uL Monocytes # (0-1.0) k/uL Monocytes # (Manual) (0-1.0) k/uL Metamyelocytes # (Man) (0) k/uL Myelocytes # (Manual) (0) k/uL VBG pH (7.31-7.41) VBG pCO2 (37-51) mmHg Sodium 124 L (137-145) mmol/L Chloride (98-107) mmol/L Carbon Dioxide <5 L* (22-30) mmol/L BUN 46 H (9-20) mg/dL Creatinine 1.84 H (0.66-1.25) mg/dL Glucose 767 H* (74-99) mg/dL POC Glucose (mg/dL) >600 H* (70-110) mg/dL Plasma Lactic Acid Oliverio (0.7-2.0) mmol/L Calcium (8.4-10.2) mg/dL Phosphorus 7.6 H (2.5-4.5) mg/dL Magnesium (1.6-2.3) mg/dL Alkaline Phosphatase (38-126) U/L Creatine Kinase 1562 H* (55-170) U/L Urine Protein 1+ H (Negative) Urine Glucose (UA) 4+ H (Negative) Urine Ketones 3+ H (Negative) Urine Blood Large H (Negative) Urine Bacteria Rare H (None) /hpf Hyaline Casts 5 H (0-2) /lpf Urine Mucus Rare H (None) /hpf 04/29/24 04/29/24 04/29/24 Range/Units 21:08 21:46 23:01 WBC (3.8-10.6) k/uL Hgb (13.0-17.5) gm/dL Hct (39.0-53.0) % MCV (80.0-100.0) fL MCHC (31.0-37.0) g/dL RDW (11.5-15.5) % Plt Count (150-450) k/uL Neutrophils # (1.3-7.7) k/uL Neutrophils # (Manual) (1.3-7.7) k/uL Lymphocytes # (1.0-4.8) k/uL Monocytes # (0-1.0) k/uL Monocytes # (Manual) (0-1.0) k/uL Metamyelocytes # (Man) (0) k/uL Myelocytes # (Manual) (0) k/uL VBG pH (7.31-7.41) VBG pCO2 (37-51) mmHg Sodium (137-145) mmol/L Chloride (98-107) mmol/L Carbon Dioxide (22-30) mmol/L BUN (9-20) mg/dL Creatinine (0.66-1.25) mg/dL Glucose (74-99) mg/dL POC Glucose (mg/dL) >600 H* >600 H* 594 H* (70-110) mg/dL Plasma Lactic Acid Oliverio (0.7-2.0) mmol/L Calcium (8.4-10.2) mg/dL Phosphorus (2.5-4.5) mg/dL Magnesium (1.6-2.3) mg/dL Alkaline Phosphatase (38-126) U/L Creatine Kinase (55-170) U/L Urine Protein (Negative) Urine Glucose (UA) (Negative) Urine Ketones (Negative) Urine Blood (Negative) Urine Bacteria (None) /hpf Hyaline Casts (0-2) /lpf Urine Mucus (None) /hpf 04/29/24 04/29/24 04/30/24 Range/Units 23:59 23:59 00:05 WBC 25.9 H (3.8-10.6) k/uL Hgb 12.9 L (13.0-17.5) gm/dL Hct (39.0-53.0) % MCV (80.0-100.0) fL MCHC (31.0-37.0) g/dL RDW 16.0 H (11.5-15.5) % Plt Count (150-450) k/uL Neutrophils # 22.2 H (1.3-7.7) k/uL Neutrophils # (Manual) (1.3-7.7) k/uL Lymphocytes # (1.0-4.8) k/uL Monocytes # 1.5 H (0-1.0) k/uL Monocytes # (Manual) (0-1.0) k/uL Metamyelocytes # (Man) (0) k/uL Myelocytes # (Manual) (0) k/uL VBG pH (7.31-7.41) VBG pCO2 (37-51) mmHg Sodium 128 L (137-145) mmol/L Chloride (98-107) mmol/L Carbon Dioxide <5 L* (22-30) mmol/L BUN 44 H (9-20) mg/dL Creatinine 1.69 H (0.66-1.25) mg/dL Glucose 578 H* (74-99) mg/dL POC Glucose (mg/dL) 517 H* (70-110) mg/dL Plasma Lactic Acid Oliverio (0.7-2.0) mmol/L Calcium (8.4-10.2) mg/dL Phosphorus (2.5-4.5) mg/dL Magnesium (1.6-2.3) mg/dL Alkaline Phosphatase (38-126) U/L Creatine Kinase (55-170) U/L Urine Protein (Negative) Urine Glucose (UA) (Negative) Urine Ketones (Negative) Urine Blood (Negative) Urine Bacteria (None) /hpf Hyaline Casts (0-2) /lpf Urine Mucus (None) /hpf 04/30/24 04/30/24 04/30/24 Range/Units 01:11 02:28 03:18 WBC (3.8-10.6) k/uL Hgb (13.0-17.5) gm/dL Hct (39.0-53.0) % MCV (80.0-100.0) fL MCHC (31.0-37.0) g/dL RDW (11.5-15.5) % Plt Count (150-450) k/uL Neutrophils # (1.3-7.7) k/uL Neutrophils # (Manual) (1.3-7.7) k/uL Lymphocytes # (1.0-4.8) k/uL Monocytes # (0-1.0) k/uL Monocytes # (Manual) (0-1.0) k/uL Metamyelocytes # (Man) (0) k/uL Myelocytes # (Manual) (0) k/uL VBG pH (7.31-7.41) VBG pCO2 (37-51) mmHg Sodium (137-145) mmol/L Chloride (98-107) mmol/L Carbon Dioxide (22-30) mmol/L BUN (9-20) mg/dL Creatinine (0.66-1.25) mg/dL Glucose (74-99) mg/dL POC Glucose (mg/dL) 492 H 356 H 339 H (70-110) mg/dL Plasma Lactic Acid Oliverio (0.7-2.0) mmol/L Calcium (8.4-10.2) mg/dL Phosphorus (2.5-4.5) mg/dL Magnesium (1.6-2.3) mg/dL Alkaline Phosphatase (38-126) U/L Creatine Kinase (55-170) U/L Urine Protein (Negative) Urine Glucose (UA) (Negative) Urine Ketones (Negative) Urine Blood (Negative) Urine Bacteria (None) /hpf Hyaline Casts (0-2) /lpf Urine Mucus (None) /hpf 04/30/24 04/30/24 04/30/24 Range/Units 03:33 03:33 04:29 WBC 17.9 H (3.8-10.6) k/uL Hgb 12.6 L (13.0-17.5) gm/dL Hct 37.3 L (39.0-53.0) % MCV 79.4 L (80.0-100.0) fL MCHC (31.0-37.0) g/dL RDW 16.3 H (11.5-15.5) % Plt Count (150-450) k/uL Neutrophils # 15.8 H (1.3-7.7) k/uL Neutrophils # (Manual) (1.3-7.7) k/uL Lymphocytes # 0.8 L (1.0-4.8) k/uL Monocytes # (0-1.0) k/uL Monocytes # (Manual) (0-1.0) k/uL Metamyelocytes # (Man) (0) k/uL Myelocytes # (Manual) (0) k/uL VBG pH (7.31-7.41) VBG pCO2 (37-51) mmHg Sodium 127 L (137-145) mmol/L Chloride (98-107) mmol/L Carbon Dioxide 10 L (22-30) mmol/L BUN 37 H (9-20) mg/dL Creatinine (0.66-1.25) mg/dL Glucose 338 H (74-99) mg/dL POC Glucose (mg/dL) 295 H (70-110) mg/dL Plasma Lactic Acid Oliverio (0.7-2.0) mmol/L Calcium 8.0 L (8.4-10.2) mg/dL Phosphorus 2.2 L (2.5-4.5) mg/dL Magnesium (1.6-2.3) mg/dL Alkaline Phosphatase (38-126) U/L Creatine Kinase (55-170) U/L Urine Protein (Negative) Urine Glucose (UA) (Negative) Urine Ketones (Negative) Urine Blood (Negative) Urine Bacteria (None) /hpf Hyaline Casts (0-2) /lpf Urine Mucus (None) /hpf 04/30/24 04/30/24 Range/Units 05:39 07:02 WBC (3.8-10.6) k/uL Hgb (13.0-17.5) gm/dL Hct (39.0-53.0) % MCV (80.0-100.0) fL MCHC (31.0-37.0) g/dL RDW (11.5-15.5) % Plt Count (150-450) k/uL Neutrophils # (1.3-7.7) k/uL Neutrophils # (Manual) (1.3-7.7) k/uL Lymphocytes # (1.0-4.8) k/uL Monocytes # (0-1.0) k/uL Monocytes # (Manual) (0-1.0) k/uL Metamyelocytes # (Man) (0) k/uL Myelocytes # (Manual) (0) k/uL VBG pH (7.31-7.41) VBG pCO2 (37-51) mmHg Sodium (137-145) mmol/L Chloride (98-107) mmol/L Carbon Dioxide (22-30) mmol/L BUN (9-20) mg/dL Creatinine (0.66-1.25) mg/dL Glucose (74-99) mg/dL POC Glucose (mg/dL) 300 H 241 H (70-110) mg/dL Plasma Lactic Acid Oliverio (0.7-2.0) mmol/L Calcium (8.4-10.2) mg/dL Phosphorus (2.5-4.5) mg/dL Magnesium (1.6-2.3) mg/dL Alkaline Phosphatase (38-126) U/L Creatine Kinase (55-170) U/L Urine Protein (Negative) Urine Glucose (UA) (Negative) Urine Ketones (Negative) Urine Blood (Negative) Urine Bacteria (None) /hpf Hyaline Casts (0-2) /lpf Urine Mucus (None) /hpf
[2024-04-30 13:19] LABS: Glucose,Whole Blood 146 mg/dL (70-110)
[2024-04-30] MEDS: PANTOPRAZOLE 40 MG/10 ML VIAL IVP SCH (13:31)
[2024-04-30 14:16] LABS: Glucose,Whole Blood 178 mg/dL (70-110)
[2024-04-30 14:30] LABS: Anisocytosis Slight; Basophils % (A) 0 %; Eosinophils % (A) 0 %; HCT 36.8 % (39.0-53.0); Lymphocytes # (A) 0.8 k/uL (1.0-4.8); Lymphocytes % (A) 4 %; MCH 26.2 pg (25.0-35.0); MCHC 32.7 g/dL (31.0-37.0); MCV 80.1 fL (80.0-100.0); Mean Platelet Volume 7.4; Microcytosis Slight; Monocytes # (A) 1.1 k/uL (0-1.0); Monocytes % (A) 6 %; Neutrophils # (A) 15.8 k/uL (1.3-7.7); Neutrophils % (A) 88 %; Platelet Count 271 k/uL (150-450); RDW 16.6 % (11.5-15.5); WBC 17.9 k/uL (3.8-10.6)
[2024-04-30 14:39] LABS: African American GFR (CKD) >90 (>60 ml/min/1.73 sqM); Anion Gap 8 mmol/L; Blood Urea Nitrogen 24 mg/dL (9-20); Calcium 8.1 mg/dL (8.4-10.2); Carbon Dioxide 13 mmol/L (22-30); Chloride 112 mmol/L (98-107); Glucose 180 mg/dL (74-99); Non-African American GFR(CKD) >90 (>60 ml/min/1.73 sqM); Potassium 3.8 mmol/L (3.5-5.1); Sodium 133 mmol/L (137-145)
[2024-04-30 15:14] LABS: Glucose,Whole Blood 207 mg/dL (70-110)
[2024-04-30 16:10] LABS: Glucose,Whole Blood 242 mg/dL (70-110)
[2024-04-30 17:30] LABS: Glucose,Whole Blood 293 mg/dL (70-110)
[2024-04-30 18:06] LABS: Glucose,Whole Blood 299 mg/dL (70-110)
[2024-04-30 18:31] LABS: Anisocytosis Slight; Basophils % (A) 0 %; Eosinophils % (A) 0 %; HCT 36.4 % (39.0-53.0); HGB 11.8 gm/dL (13.0-17.5); Lymphocytes # (A) 0.8 k/uL (1.0-4.8); Lymphocytes % (A) 6 %; MCH 26.4 pg (25.0-35.0); MCHC 32.4 g/dL (31.0-37.0); MCV 81.4 fL (80.0-100.0); Mean Platelet Volume 7.5; Monocytes # (A) 0.7 k/uL (0-1.0); Monocytes % (A) 5 %; Neutrophils # (A) 12.8 k/uL (1.3-7.7); Neutrophils % (A) 89 %; Platelet Count 233 k/uL (150-450); RBC 4.47 m/uL (4.30-5.90); RDW 16.6 % (11.5-15.5); WBC 14.5 k/uL (3.8-10.6)
[2024-04-30 18:57] LABS: Glucose,Whole Blood 294 mg/dL (70-110)
[2024-04-30 20:05] LABS: Glucose,Whole Blood 262 mg/dL (70-110)
[2024-04-30] MEDS: MORPHINE SULFATE 4 MG/ML SYRINGE IVP PRN (20:25)
[2024-04-30 21:17] LABS: Glucose,Whole Blood 248 mg/dL (70-110)
[2024-04-30 22:14] LABS: African American GFR (CKD) >90 (>60 ml/min/1.73 sqM); Anion Gap 5 mmol/L; Blood Urea Nitrogen 19 mg/dL (9-20); Carbon Dioxide 16 mmol/L (22-30); Chloride 112 mmol/L (98-107); Glucose 249 mg/dL (74-99); Non-African American GFR(CKD) >90 (>60 ml/min/1.73 sqM); Potassium 3.2 mmol/L (3.5-5.1); Sodium 133 mmol/L (137-145)
[2024-04-30 22:24] LABS: Glucose,Whole Blood 235 mg/dL (70-110)
[2024-04-30 23:13] LABS: Glucose,Whole Blood 224 mg/dL (70-110)
[2024-05-01 00:14] LABS: Glucose,Whole Blood 225 mg/dL (70-110)
[2024-05-01 01:25] LABS: Glucose,Whole Blood 241 mg/dL (70-110)
[2024-05-01 02:06] LABS: Glucose,Whole Blood 215 mg/dL (70-110)
[2024-05-01 02:34] LABS: African American GFR (CKD) >90 (>60 ml/min/1.73 sqM); Anion Gap 3 mmol/L; Blood Urea Nitrogen 16 mg/dL (9-20); Calcium 7.9 mg/dL (8.4-10.2); Carbon Dioxide 17 mmol/L (22-30); Chloride 113 mmol/L (98-107); Glucose 211 mg/dL (74-99); Non-African American GFR(CKD) >90 (>60 ml/min/1.73 sqM); Phosphorus 1.6 mg/dL (2.5-4.5); Potassium 3.4 mmol/L (3.5-5.1); Sodium 133 mmol/L (137-145)
[2024-05-01 03:24] LABS: Glucose,Whole Blood 222 mg/dL (70-110)
[2024-05-01 04:28] LABS: Glucose,Whole Blood 207 mg/dL (70-110)
[2024-05-01 05:52] LABS: Glucose,Whole Blood 204 mg/dL (70-110)
[2024-05-01 06:07] LABS: Anisocytosis Slight; Basophils % (A) 0 %; Eosinophils % (A) 0 %; HCT 35.1 % (39.0-53.0); HGB 11.4 gm/dL (13.0-17.5); Lymphocytes # (A) 1.4 k/uL (1.0-4.8); Lymphocytes % (A) 12 %; MCH 26.2 pg (25.0-35.0); MCHC 32.4 g/dL (31.0-37.0); MCV 80.9 fL (80.0-100.0); Mean Platelet Volume 7.2; Microcytosis Slight; Monocytes # (A) 0.4 k/uL (0-1.0); Monocytes % (A) 4 %; Neutrophils # (A) 9.9 k/uL (1.3-7.7); Neutrophils % (A) 83 %; Platelet Count 207 k/uL (150-450); RBC 4.34 m/uL (4.30-5.90); RDW 16.8 % (11.5-15.5); WBC 11.9 k/uL (3.8-10.6)
[2024-05-01 06:23] LABS: African American GFR (CKD) >90 (>60 ml/min/1.73 sqM); Anion Gap 3 mmol/L; Blood Urea Nitrogen 14 mg/dL (9-20); Calcium 7.9 mg/dL (8.4-10.2); Carbon Dioxide 18 mmol/L (22-30); Chloride 112 mmol/L (98-107); Glucose 203 mg/dL (74-99); Non-African American GFR(CKD) >90 (>60 ml/min/1.73 sqM); Potassium 3.3 mmol/L (3.5-5.1); Sodium 133 mmol/L (137-145)
[2024-05-01 07:04] LABS: Glucose,Whole Blood 182 mg/dL (70-110)
[2024-05-01] MEDS: INSULIN DETEMIR (LEVEMIR) 100 UNIT/ML SYR SQ SCH (07:41)
[2024-05-01 08:25] LABS: Glucose,Whole Blood 229 mg/dL (70-110)
[2024-05-01] MEDS: POTASSIUM BICARBONATE/CIT AC 20 MEQ TABLET.EFF NG-TUBE SCH (08:27)
[2024-05-01] MEDS: POTASSIUM CHLORIDE ER 20 MEQ TAB.ER PO SCH ×2 (08:42→16:35)
[2024-05-01] MEDS: INSULIN ASPART (NovoLOG) 100 UNIT/ML VIAL SQ SCH (09:13)
[2024-05-01 11:00] VITALS: BMI 26.3
--- NOTE | 2024-05-01 11:25 | P.PN ---
Subjective Progress Note Date: 05/01/24 This is a 68-year-old white male with history of type 1 diabetes, presented to the ER with altered mental status, picture of metabolic encephalopathy, patient was actually in the ER the day before with symptoms of acute viral illness mostly cough, he had no fever, patient had negative workup and he was discharged home from the ER. The following day which is yesterday patient was found [place] [employer] laying unresponsive and seen by bystanders. EMS was notified, patient was brought into the ER and he was noted to have acute diabetic ketoacidosis with hyperglycemia with sugar as high as over 600 his ketones were positive. Patient had significant anion gap metabolic acidosis with venous blood gas showing pH less than 6.82. Patient was placed on bicarb drip he was also placed on the DKA protocol, admitted to the ICU, and I saw the patient today on consultation, remains on insulin drip at 9.33 units/h patient is receiving D5 4 5 at 150 cc/h patient is empirically on Unasyn and he is on bi carb drip which I have discontinued this morning. His labs today showed bicarb of 17 potassium 3.3 anion gap is 6 BUN 31 creatinine 0.72. Blood sugar was 309 this morning. Drug screen came back basically unremarkableWBC count is 17.9 hemoglobin is 12.6, on admission the patient had WBC count of 25.9. Chest x-ray is suggestive of left lower lobe pneumonia and he does have right basilar atelectasis. Has patient is presently on Unasyn. CT of the brain came back unremarkable The patient is seen today May 01, 2024 in follow-up in the intensive care unit. He is awake and alert in no acute distress. He is maintaining O2 saturations in the 90s on room air. He has been afebrile. Hemodynamically stable. White count 11.9. Hemoglobin 11.5. Platelets 207. Sodium 133. Potassium 3.3. Chloride 112. Bicarb 18. BUN 14. Creatinine 0.42. Glucose 203. He is currently on ceftriaxone. He has been transition to Levemir and NovoLog sliding scale. Heparin for DVT prophylaxis. Objective - Vital Signs Vital signs: Vital Signs Temp 98.8 F 05/01/24 08:00 Pulse 89 05/01/24 09:00 Resp 20 05/01/24 09:00 BP 123/71 05/01/24 09:00 Pulse Ox 96 05/01/24 09:00 FiO2 Intake & Output 04/30/24 05/01/24 05/01/24 18:59 06:59 18:59 Intake Total 2617.687 2369.901 700 Output Total 1195 2175 265 Balance 1422.687 194.901 435 Weight 76.8 kg 83.3 kg 83.3 kg Intake: IV 200 2200 200 Ampicillin-Sulbactam 3 gm 100 In Sodium Chloride 0.9% 100 ml @ 200 mls/hr IVPB Q8H [facility] Rx#:[id number] D5-0.45% NaCl with KCl 1650 200 20Meq/l 1,000 ml @ 50 mls /hr IV .Q20H [facility] Rx#: [id number] Dextrose 5% in Water 1, 200 000 ml @ 100 mls/hr IV . [id number] JORGE A with Sodium Bicarb (1 Meq/ml) 150 ml Rx#:[id number] Potassium Chloride 10 meq 400 In Water For Injection 1 100ml.bag @ 100 mls/hr IVPB Q1HR [facility] Rx#: [id number] cefTRIAXone 2 gm In 50 Sodium Chloride 0.9% 50 ml @ 100 mls/hr IVPB Q24H [facility] Rx#:[id number] Intake, IV Titration 2417.687 169.901 Amount Ampicillin-Sulbactam 3 gm 100 In Sodium Chloride 0.9% 100 ml @ 200 mls/hr IVPB Q8H [facility] Rx#:[id number] D5-0.45% NaCl with KCl 1650 150 20Meq/l 1,000 ml @ 50 mls /hr IV .Q20H [facility] Rx#: [id number] Insulin Regular 100 unit 67.687 19.901 In Sodium Chloride 0.9% 100 ml @ 0.1 UNITS/KG/HR 7.33 mls/hr IV .[id number] [facility] Rx#:[id number] Potassium Chloride 10 meq 500 In Water For Injection 1 100ml.bag @ 100 mls/hr IVPB Q1H [facility] Rx#: [id number] Potassium Chloride 10 meq 100 In Water For Injection 1 100ml.bag @ 100 mls/hr IVPB Q1H [facility] Rx#: [id number] Oral 500 Output: Urine 1195 2175 265 Other: Voiding Method Indwelling Catheter Indwelling Catheter Indwelling Catheter - Exam GENERAL EXAM: Alert, 68-year-old male patient, on room air, comfortable in no apparent distress. HEAD: Normocephalic. EYES: Normal reaction of pupils, equal size. NOSE: Clear with pink turbinates. THROAT: No erythema or exudates. NECK: No masses, no JVD. CHEST: No chest wall deformity. LUNGS: Equal air entry with no crackles, wheeze, rhonchi or dullness. CVS: S1 and S2 normal with no audible murmur, regular rhythm. ABDOMEN: No hepatosplenomegaly, normal bowel sounds, no guarding or rigidity. SPINE: No scoliosis or deformity SKIN: No rashes CENTRAL NERVOUS SYSTEM: No focal deficits, tone is normal in all 4 extremities. EXTREMITIES: There is no peripheral edema. No clubbing, no cyanosis. Peripheral pulses are intact. - Labs CBC & Chem 7: 05/01/24 05:47 05/01/24 05:47 Labs: Abnormal Lab Results - Last 24 Hours (Table) 04/30/24 04/30/24 04/30/24 Range/Units 03:33 11:58 13:18 WBC (3.8-10.6) k/uL Hgb (13.0-17.5) gm/dL Hct (39.0-53.0) % RDW (11.5-15.5) % Neutrophils # (1.3-7.7) k/uL Lymphocytes # (1.0-4.8) k/uL Monocytes # (0-1.0) k/uL Sodium (137-145) mmol/L Potassium (3.5-5.1) mmol/L Chloride (98-107) mmol/L Carbon Dioxide (22-30) mmol/L BUN (9-20) mg/dL Creatinine (0.66-1.25) mg/dL Glucose (74-99) mg/dL POC Glucose (mg/dL) 121 H 146 H (70-110) mg/dL Calcium (8.4-10.2) mg/dL Phosphorus (2.5-4.5) mg/dL Procalcitonin 3.46 H (0.02-0.50) ng/mL 04/30/24 04/30/24 04/30/24 Range/Units 14:11 14:11 14:14 WBC 17.9 H (3.8-10.6) k/uL Hgb 12.0 L (13.0-17.5) gm/dL Hct 36.8 L (39.0-53.0) % RDW 16.6 H (11.5-15.5) % Neutrophils # 15.8 H (1.3-7.7) k/uL Lymphocytes # 0.8 L (1.0-4.8) k/uL Monocytes # 1.1 H (0-1.0) k/uL Sodium 133 L (137-145) mmol/L Potassium (3.5-5.1) mmol/L Chloride 112 H (98-107) mmol/L Carbon Dioxide 13 L (22-30) mmol/L BUN 24 H (9-20) mg/dL Creatinine 0.60 L (0.66-1.25) mg/dL Glucose 180 H (74-99) mg/dL POC Glucose (mg/dL) 178 H (70-110) mg/dL Calcium 8.1 L (8.4-10.2) mg/dL Phosphorus (2.5-4.5) mg/dL Procalcitonin (0.02-0.50) ng/mL 04/30/24 04/30/24 04/30/24 Range/Units 15:13 16:08 17:29 WBC (3.8-10.6) k/uL Hgb (13.0-17.5) gm/dL Hct (39.0-53.0) % RDW (11.5-15.5) % Neutrophils # (1.3-7.7) k/uL Lymphocytes # (1.0-4.8) k/uL Monocytes # (0-1.0) k/uL Sodium (137-145) mmol/L Potassium (3.5-5.1) mmol/L Chloride (98-107) mmol/L Carbon Dioxide (22-30) mmol/L BUN (9-20) mg/dL Creatinine (0.66-1.25) mg/dL Glucose (74-99) mg/dL POC Glucose (mg/dL) 207 H 242 H 293 H (70-110) mg/dL Calcium (8.4-10.2) mg/dL Phosphorus (2.5-4.5) mg/dL Procalcitonin (0.02-0.50) ng/mL 04/30/24 04/30/24 04/30/24 Range/Units 18:04 18:12 18:54 WBC 14.5 H (3.8-10.6) k/uL Hgb 11.8 L (13.0-17.5) gm/dL Hct 36.4 L (39.0-53.0) % RDW 16.6 H (11.5-15.5) % Neutrophils # 12.8 H (1.3-7.7) k/uL Lymphocytes # 0.8 L (1.0-4.8) k/uL Monocytes # (0-1.0) k/uL Sodium (137-145) mmol/L Potassium (3.5-5.1) mmol/L Chloride (98-107) mmol/L Carbon Dioxide (22-30) mmol/L BUN (9-20) mg/dL Creatinine (0.66-1.25) mg/dL Glucose (74-99) mg/dL POC Glucose (mg/dL) 299 H 294 H (70-110) mg/dL Calcium (8.4-10.2) mg/dL Phosphorus (2.5-4.5) mg/dL Procalcitonin (0.02-0.50) ng/mL 04/30/24 04/30/24 04/30/24 Range/Units 20:04 21:15 21:44 WBC (3.8-10.6) k/uL Hgb (13.0-17.5) gm/dL Hct (39.0-53.0) % RDW (11.5-15.5) % Neutrophils # (1.3-7.7) k/uL Lymphocytes # (1.0-4.8) k/uL Monocytes # (0-1.0) k/uL Sodium 133 L (137-145) mmol/L Potassium 3.2 L (3.5-5.1) mmol/L Chloride 112 H (98-107) mmol/L Carbon Dioxide 16 L (22-30) mmol/L BUN (9-20) mg/dL Creatinine 0.51 L (0.66-1.25) mg/dL Glucose 249 H (74-99) mg/dL POC Glucose (mg/dL) 262 H 248 H (70-110) mg/dL Calcium 8.0 L (8.4-10.2) mg/dL Phosphorus (2.5-4.5) mg/dL Procalcitonin (0.02-0.50) ng/mL 04/30/24 04/30/24 05/01/24 Range/Units 22:21 23:11 00:13 WBC (3.8-10.6) k/uL Hgb (13.0-17.5) gm/dL Hct (39.0-53.0) % RDW (11.5-15.5) % Neutrophils # (1.3-7.7) k/uL Lymphocytes # (1.0-4.8) k/uL Monocytes # (0-1.0) k/uL Sodium (137-145) mmol/L Potassium (3.5-5.1) mmol/L Chloride (98-107) mmol/L Carbon Dioxide (22-30) mmol/L BUN (9-20) mg/dL Creatinine (0.66-1.25) mg/dL Glucose (74-99) mg/dL POC Glucose (mg/dL) 235 H 224 H 225 H (70-110) mg/dL Calcium (8.4-10.2) mg/dL Phosphorus (2.5-4.5) mg/dL Procalcitonin (0.02-0.50) ng/mL 05/01/24 05/01/24 05/01/24 Range/Units 01:23 02:01 02:04 WBC (3.8-10.6) k/uL Hgb (13.0-17.5) gm/dL Hct (39.0-53.0) % RDW (11.5-15.5) % Neutrophils # (1.3-7.7) k/uL Lymphocytes # (1.0-4.8) k/uL Monocytes # (0-1.0) k/uL Sodium 133 L (137-145) mmol/L Potassium 3.4 L (3.5-5.1) mmol/L Chloride 113 H (98-107) mmol/L Carbon Dioxide 17 L (22-30) mmol/L BUN (9-20) mg/dL Creatinine 0.48 L (0.66-1.25) mg/dL Glucose 211 H (74-99) mg/dL POC Glucose (mg/dL) 241 H 215 H (70-110) mg/dL Calcium 7.9 L (8.4-10.2) mg/dL Phosphorus 1.6 L (2.5-4.5) mg/dL Procalcitonin (0.02-0.50) ng/mL 05/01/24 05/01/24 05/01/24 Range/Units 03:22 04:26 05:47 WBC (3.8-10.6) k/uL Hgb (13.0-17.5) gm/dL Hct (39.0-53.0) % RDW (11.5-15.5) % Neutrophils # (1.3-7.7) k/uL Lymphocytes # (1.0-4.8) k/uL Monocytes # (0-1.0) k/uL Sodium 133 L (137-145) mmol/L Potassium 3.3 L (3.5-5.1) mmol/L Chloride 112 H (98-107) mmol/L Carbon Dioxide 18 L (22-30) mmol/L BUN (9-20) mg/dL Creatinine 0.42 L (0.66-1.25) mg/dL Glucose 203 H (74-99) mg/dL POC Glucose (mg/dL) 222 H 207 H (70-110) mg/dL Calcium 7.9 L (8.4-10.2) mg/dL Phosphorus (2.5-4.5) mg/dL Procalcitonin (0.02-0.50) ng/mL 05/01/24 05/01/24 05/01/24 Range/Units 05:47 05:50 07:02 WBC 11.9 H (3.8-10.6) k/uL Hgb 11.4 L (13.0-17.5) gm/dL Hct 35.1 L (39.0-53.0) % RDW 16.8 H (11.5-15.5) % Neutrophils # 9.9 H (1.3-7.7) k/uL Lymphocytes # (1.0-4.8) k/uL Monocytes # (0-1.0) k/uL Sodium (137-145) mmol/L Potassium (3.5-5.1) mmol/L Chloride (98-107) mmol/L Carbon Dioxide (22-30) mmol/L BUN (9-20) mg/dL Creatinine (0.66-1.25) mg/dL Glucose (74-99) mg/dL POC Glucose (mg/dL) 204 H 182 H (70-110) mg/dL Calcium (8.4-10.2) mg/dL Phosphorus (2.5-4.5) mg/dL Procalcitonin (0.02-0.50) ng/mL 05/01/24 Range/Units 08:24 WBC (3.8-10.6) k/uL Hgb (13.0-17.5) gm/dL Hct (39.0-53.0) % RDW (11.5-15.5) % Neutrophils # (1.3-7.7) k/uL Lymphocytes # (1.0-4.8) k/uL Monocytes # (0-1.0) k/uL Sodium (137-145) mmol/L Potassium (3.5-5.1) mmol/L Chloride (98-107) mmol/L Carbon Dioxide (22-30) mmol/L BUN (9-20) mg/dL Creatinine (0.66-1.25) mg/dL Glucose (74-99) mg/dL POC Glucose (mg/dL) 229 H (70-110) mg/dL Calcium (8.4-10.2) mg/dL Phosphorus (2.5-4.5) mg/dL Procalcitonin (0.02-0.50) ng/mL Microbiology - Last 24 Hours (Table) 04/29/24 17:50 Blood Culture Gram Stain - Preliminary Blood Blood Culture - Preliminary Molecular ID Assessment and Plan Assessment: Acute diabetic ketoacidosis Acute left lower lobe pneumonia and right lower lobe atelectasis/possible pneumonia suspect some component of aspiration Bacteremia, gram-negative bacilli, haemophilus influenza, initiated on ceftriaxone Pseudohyponatremia on presentation related to elevated blood sugar History of type 1 diabetes acute kidney injury most likely secondary to hypovole meek Hypothermia on presentation most likely secondary to exposure Acute metabolic encephalopathy, resolved Plan: The patient was seen and evaluated Labs and medications reviewed Transition to Levemir and NovoLog Stable and on room air Transfer to the regular medical floor today Blood cultures positive, initiated on ceftriaxone We will continue to follow I have personally seen and examined the patient, performed the documentation and the assessment and plan as written. Number of minutes spent on the visit: 10 Dictation was produced using [employer] dictation software. Please excuse any gram matical, word or spelling errors.
[2024-05-01 11:47] LABS: Glucose,Whole Blood 221 mg/dL (70-110)
--- NOTE | 2024-05-01 12:15 | P.PN ---
Subjective Progress Note Date: 05/01/24 68 year old M with PMH of type 1 DM presents to the ED for unresponsiveness and altered mental status. He was found unresponsive at a closed custard shop. Family that lived close to the shop had noted him sitting outside with his head down since 8AM. In the ED he underwent extensive evaluation. T 85.8F, BP 108/55, RR 26, HR 51, 98% on RA. CBC, Coag panel, CMP significant for WBC 38.6, Plt 506, Na 122, Cl 91, bicarb < 5, BUN 45, Cr 1.92, glu 873, alk phos 162. Lactic acid 3.5. Mag 3. VBG pH < 6.82, pCO2 23. UA negative LE or nitrite. UDS neg. Salicylate, Acetaminophen, EtOH neg. Acetone positive. EKG sinus bradycardia. CT brain no acute process. Patient was bolused 1L NS, started on insulin drip and admitted to ICU for management of DKA. Started on Unasyn empirically for sepsis. BCx + for H. influenza. Antibiotics switched to Rocephin. Insulin drip transitioned to SQ insulin 04/30. 05/01 Patient was seen and examined. Slow to respond but answering questions appropriately. BCx + H. influenza. Unasyn switched to Rocephin 2g IV QD. CBC, BMP significant for WBC 11.9, Hg 11.4, Hct 35.1, Na 133, K 3.3, Cl 112, bicarb 18, glu 203, Ca 7.9. Insulin drip switched to SQ insulin overnight. CXR shows L basilar opacity. General: non toxic, no distress, appears at stated age Derm: warm, dry Head: atraumatic, normocephalic, symmetric Eyes: EOMI, no lid lag, anicteric sclera Mouth: no lip lesion, mucus membranes moist Cardiovascular: S1S2 tachy, no murmur Lungs: Clear to auscultation bilaterally, no rhonchi, no rales , no accessory muscle use Ext: no gross muscle atrophy, no edema, no contractures Neuro: no focal neuro deficits Psych: Alert, oriented x 2. Slow to respond Based on my assessment of this patient, this patient meets a high complexity level of care. Acute metabolic encephalopathy due to below Diabetic ketoacidosis: Levemir 10 units SQ QD. ISS ACHS. A1c 12.4. Accuchecks ACHS. Sepsis due to H. influenza bacteremia: Likely PNA. Hypothermic. Tachypneic. Procal 3.46. Follow BCx. Continue Rocephin 2g IV QD. ID consult. Hypokalemia: Replace via protocol. Rhabdomyolysis: IV hydration as above. Pseudohyponatremia Microcytic anemia: Dilutional. No signs of active bleeding. Monitor Hg. Resolved: DIANA, Lactic acidosis, Hypothermia CODE STATUS: FULL CODE. DVT Prophylaxis: Heparin SQ GI Prophylaxis: Designated medical POA if patient is not able to make medical decisions for t hemselves: I have reviewed the following lean consultant notes: Pulmonary. I have reviewed the results of the following tests: CBC, BMP, BCx I have ordered the following tests: CBC and BMP in the AM. I have discussed the care of this patient with the following independent historian: AYANA I have independently interpreted the following test below: CXR I have discussed the management of this patient with the following physician: Objective - Vital Signs Vital signs: Vital Signs Temp 100.0 F H 05/01/24 12:01 Pulse 90 05/01/24 12:01 Resp 20 05/01/24 12:01 BP 154/98 05/01/24 12:01 Pulse Ox 96 05/01/24 09:00 FiO2 Intake & Output 04/30/24 05/01/24 05/01/24 18:59 06:59 18:59 Intake Total 2617.687 2369.901 700 Output Total 1195 2175 265 Balance 1422.687 194.901 435 Weight 76.8 kg 83.3 kg 83.3 kg Intake: IV 200 2200 200 Ampicillin-Sulbactam 3 gm 100 In Sodium Chloride 0.9% 100 ml @ 200 mls/hr IVPB Q8H JORGE A Rx#:[id number] D5-0.45% NaCl with KCl 1650 200 20Meq/l 1,000 ml @ 50 mls /hr IV .Q20H JORGE A Rx#: [id number] Dextrose 5% in Water 1, 200 000 ml @ 100 mls/hr IV . [id number] JORGE A with Sodium Bicarb (1 Meq/ml) 150 ml Rx#:[id number] Potassium Chloride 10 meq 400 In Water For Injection 1 100ml.bag @ 100 mls/hr IVPB Q1HR JORGE A Rx#: [id number] cefTRIAXone 2 gm In 50 Sodium Chloride 0.9% 50 ml @ 100 mls/hr IVPB Q24H JORGE A Rx#:[id number] Intake, IV Titration 2417.687 169.901 Amount Ampicillin-Sulbactam 3 gm 100 In Sodium Chloride 0.9% 100 ml @ 200 mls/hr IVPB Q8H JORGE A Rx#:[id number] D5-0.45% NaCl with KCl 1650 150 20Meq/l 1,000 ml @ 50 mls /hr IV .Q20H JORGE A Rx#: [id number] Insulin Regular 100 unit 67.687 19.901 In Sodium Chloride 0.9% 100 ml @ 0.1 UNITS/KG/HR 7.33 mls/hr IV .[id number] JORGE A Rx#:[id number] Potassium Chloride 10 meq 500 In Water For Injection 1 100ml.bag @ 100 mls/hr IVPB Q1H JORGE A Rx#: [id number] Potassium Chloride 10 meq 100 In Water For Injection 1 100ml.bag @ 100 mls/hr IVPB Q1H JORGE A Rx#: [id number] Oral 500 Output: Urine 1195 2175 265 Other: Voiding Method Indwelling Catheter Indwelling Catheter Indwelling Catheter - Labs CBC & Chem 7: 05/01/24 05:47 05/01/24 05:47 Labs: Abnormal Lab Results - Last 24 Hours (Table) 04/30/24 04/30/24 04/30/24 Range/Units 03:33 13:18 14:11 WBC 17.9 H (3.8-10.6) k/uL Hgb 12.0 L (13.0-17.5) gm/dL Hct 36.8 L (39.0-53.0) % RDW 16.6 H (11.5-15.5) % Neutrophils # 15.8 H (1.3-7.7) k/uL Lymphocytes # 0.8 L (1.0-4.8) k/uL Monocytes # 1.1 H (0-1.0) k/uL Sodium (137-145) mmol/L Potassium (3.5-5.1) mmol/L Chloride (98-107) mmol/L Carbon Dioxide (22-30) mmol/L BUN (9-20) mg/dL Creatinine (0.66-1.25) mg/dL Glucose (74-99) mg/dL POC Glucose (mg/dL) 146 H (70-110) mg/dL Calcium (8.4-10.2) mg/dL Phosphorus (2.5-4.5) mg/dL Procalcitonin 3.46 H (0.02-0.50) ng/mL 04/30/24 04/30/24 04/30/24 Range/Units 14:11 14:14 15:13 WBC (3.8-10.6) k/uL Hgb (13.0-17.5) gm/dL Hct (39.0-53.0) % RDW (11.5-15.5) % Neutrophils # (1.3-7.7) k/uL Lymphocytes # (1.0-4.8) k/uL Monocytes # (0-1.0) k/uL Sodium 133 L (137-145) mmol/L Potassium (3.5-5.1) mmol/L Chloride 112 H (98-107) mmol/L Carbon Dioxide 13 L (22-30) mmol/L BUN 24 H (9-20) mg/dL Creatinine 0.60 L (0.66-1.25) mg/dL Glucose 180 H (74-99) mg/dL POC Glucose (mg/dL) 178 H 207 H (70-110) mg/dL Calcium 8.1 L (8.4-10.2) mg/dL Phosphorus (2.5-4.5) mg/dL Procalcitonin (0.02-0.50) ng/mL 04/30/24 04/30/24 04/30/24 Range/Units 16:08 17:29 18:04 WBC (3.8-10.6) k/uL Hgb (13.0-17.5) gm/dL Hct (39.0-53.0) % RDW (11.5-15.5) % Neutrophils # (1.3-7.7) k/uL Lymphocytes # (1.0-4.8) k/uL Monocytes # (0-1.0) k/uL Sodium (137-145) mmol/L Potassium (3.5-5.1) mmol/L Chloride (98-107) mmol/L Carbon Dioxide (22-30) mmol/L BUN (9-20) mg/dL Creatinine (0.66-1.25) mg/dL Glucose (74-99) mg/dL POC Glucose (mg/dL) 242 H 293 H 299 H (70-110) mg/dL Calcium (8.4-10.2) mg/dL Phosphorus (2.5-4.5) mg/dL Procalcitonin (0.02-0.50) ng/mL 04/30/24 04/30/24 04/30/24 Range/Units 18:12 18:54 20:04 WBC 14.5 H (3.8-10.6) k/uL Hgb 11.8 L (13.0-17.5) gm/dL Hct 36.4 L (39.0-53.0) % RDW 16.6 H (11.5-15.5) % Neutrophils # 12.8 H (1.3-7.7) k/uL Lymphocytes # 0.8 L (1.0-4.8) k/uL Monocytes # (0-1.0) k/uL Sodium (137-145) mmol/L Potassium (3.5-5.1) mmol/L Chloride (98-107) mmol/L Carbon Dioxide (22-30) mmol/L BUN (9-20) mg/dL Creatinine (0.66-1.25) mg/dL Glucose (74-99) mg/dL POC Glucose (mg/dL) 294 H 262 H (70-110) mg/dL Calcium (8.4-10.2) mg/dL Phosphorus (2.5-4.5) mg/dL Procalcitonin (0.02-0.50) ng/mL 04/30/24 04/30/24 04/30/24 Range/Units 21:15 21:44 22:21 WBC (3.8-10.6) k/uL Hgb (13.0-17.5) gm/dL Hct (39.0-53.0) % RDW (11.5-15.5) % Neutrophils # (1.3-7.7) k/uL Lymphocytes # (1.0-4.8) k/uL Monocytes # (0-1.0) k/uL Sodium 133 L (137-145) mmol/L Potassium 3.2 L (3.5-5.1) mmol/L Chloride 112 H (98-107) mmol/L Carbon Dioxide 16 L (22-30) mmol/L BUN (9-20) mg/dL Creatinine 0.51 L (0.66-1.25) mg/dL Glucose 249 H (74-99) mg/dL POC Glucose (mg/dL) 248 H 235 H (70-110) mg/dL Calcium 8.0 L (8.4-10.2) mg/dL Phosphorus (2.5-4.5) mg/dL Procalcitonin (0.02-0.50) ng/mL 04/30/24 05/01/24 05/01/24 Range/Units 23:11 00:13 01:23 WBC (3.8-10.6) k/uL Hgb (13.0-17.5) gm/dL Hct (39.0-53.0) % RDW (11.5-15.5) % Neutrophils # (1.3-7.7) k/uL Lymphocytes # (1.0-4.8) k/uL Monocytes # (0-1.0) k/uL Sodium (137-145) mmol/L Potassium (3.5-5.1) mmol/L Chloride (98-107) mmol/L Carbon Dioxide (22-30) mmol/L BUN (9-20) mg/dL Creatinine (0.66-1.25) mg/dL Glucose (74-99) mg/dL POC Glucose (mg/dL) 224 H 225 H 241 H (70-110) mg/dL Calcium (8.4-10.2) mg/dL Phosphorus (2.5-4.5) mg/dL Procalcitonin (0.02-0.50) ng/mL 05/01/24 05/01/24 05/01/24 Range/Units 02:01 02:04 03:22 WBC (3.8-10.6) k/uL Hgb (13.0-17.5) gm/dL Hct (39.0-53.0) % RDW (11.5-15.5) % Neutrophils # (1.3-7.7) k/uL Lymphocytes # (1.0-4.8) k/uL Monocytes # (0-1.0) k/uL Sodium 133 L (137-145) mmol/L Potassium 3.4 L (3.5-5.1) mmol/L Chloride 113 H (98-107) mmol/L Carbon Dioxide 17 L (22-30) mmol/L BUN (9-20) mg/dL Creatinine 0.48 L (0.66-1.25) mg/dL Glucose 211 H (74-99) mg/dL POC Glucose (mg/dL) 215 H 222 H (70-110) mg/dL Calcium 7.9 L (8.4-10.2) mg/dL Phosphorus 1.6 L (2.5-4.5) mg/dL Procalcitonin (0.02-0.50) ng/mL 05/01/24 05/01/24 05/01/24 Range/Units 04:26 05:47 05:47 WBC 11.9 H (3.8-10.6) k/uL Hgb 11.4 L (13.0-17.5) gm/dL Hct 35.1 L (39.0-53.0) % RDW 16.8 H (11.5-15.5) % Neutrophils # 9.9 H (1.3-7.7) k/uL Lymphocytes # (1.0-4.8) k/uL Monocytes # (0-1.0) k/uL Sodium 133 L (137-145) mmol/L Potassium 3.3 L (3.5-5.1) mmol/L Chloride 112 H (98-107) mmol/L Carbon Dioxide 18 L (22-30) mmol/L BUN (9-20) mg/dL Creatinine 0.42 L (0.66-1.25) mg/dL Glucose 203 H (74-99) mg/dL POC Glucose (mg/dL) 207 H (70-110) mg/dL Calcium 7.9 L (8.4-10.2) mg/dL Phosphorus (2.5-4.5) mg/dL Procalcitonin (0.02-0.50) ng/mL 05/01/24 05/01/24 05/01/24 Range/Units 05:50 07:02 08:24 WBC (3.8-10.6) k/uL Hgb (13.0-17.5) gm/dL Hct (39.0-53.0) % RDW (11.5-15.5) % Neutrophils # (1.3-7.7) k/uL Lymphocytes # (1.0-4.8) k/uL Monocytes # (0-1.0) k/uL Sodium (137-145) mmol/L Potassium (3.5-5.1) mmol/L Chloride (98-107) mmol/L Carbon Dioxide (22-30) mmol/L BUN (9-20) mg/dL Creatinine (0.66-1.25) mg/dL Glucose (74-99) mg/dL POC Glucose (mg/dL) 204 H 182 H 229 H (70-110) mg/dL Calcium (8.4-10.2) mg/dL Phosphorus (2.5-4.5) mg/dL Procalcitonin (0.02-0.50) ng/mL 05/01/24 Range/Units 11:45 WBC (3.8-10.6) k/uL Hgb (13.0-17.5) gm/dL Hct (39.0-53.0) % RDW (11.5-15.5) % Neutrophils # (1.3-7.7) k/uL Lymphocytes # (1.0-4.8) k/uL Monocytes # (0-1.0) k/uL Sodium (137-145) mmol/L Potassium (3.5-5.1) mmol/L Chloride (98-107) mmol/L Carbon Dioxide (22-30) mmol/L BUN (9-20) mg/dL Creatinine (0.66-1.25) mg/dL Glucose (74-99) mg/dL POC Glucose (mg/dL) 221 H (70-110) mg/dL Calcium (8.4-10.2) mg/dL Phosphorus (2.5-4.5) mg/dL Procalcitonin (0.02-0.50) ng/mL Microbiology - Last 24 Hours (Table) 04/29/24 17:50 Blood Culture Gram Stain - Preliminary Blood Blood Culture - Preliminary Molecular ID
[2024-05-01 15:01] LABS: African American GFR (CKD) >90 (>60 ml/min/1.73 sqM); Anion Gap 7 mmol/L; Blood Urea Nitrogen 12 mg/dL (9-20); Calcium 8.3 mg/dL (8.4-10.2); Carbon Dioxide 19 mmol/L (22-30); Chloride 107 mmol/L (98-107); Glucose 182 mg/dL (74-99); Non-African American GFR(CKD) >90 (>60 ml/min/1.73 sqM); Potassium 3.4 mmol/L (3.5-5.1); Sodium 133 mmol/L (137-145)
[2024-05-01 17:04] LABS: Glucose,Whole Blood 181 mg/dL (70-110)
[2024-05-01 20:18] LABS: Glucose,Whole Blood 185 mg/dL (70-110)
--- NOTE | 2024-05-01 22:17 | P.CONS ---
History of Present Illness - Reason for Consult Consult date: 05/01/24 Bacteremia Requesting physician: Amador Suarez - Chief Complaint Cough and shortness of breath x few days - History of Present Illness Patient is a 68-year-old male with a past medical history significant for diabetes mellitus osteoarthritis patient has been brought to the hospital 2 days ago after the patient was found laying behind a custard shop on arrival of the EMS the patient was noted to be unresponsive subsequently has been brought to the hospital patient was noticed to be in DKA and has been admitted to ICU patient was hypothermic on imaging presented to hospital with a temperature of 85.8 F subsequently temperature normalized with a low reviewed 100 F at noon patient did have blood cultures drawn came back positive with Haemophilus infl uenzae prompted this consultation. Patient denies having any headache or URI symptoms has been complaining of some left-sided chest pain that is currently to be sharp moderate intensity without any radiation he also have a cough congested mild to moderate intensity with occasional sputum production no hemoptysis patient denies having any choking on the food no nausea vomiting abdominal pain or any diarrhea patient did have elevated white count of 5.8 admission with a left shift he did have elevated BUN and creatinine and a glucose of 578 liver isms are normal procalcitonin 3.46 urine has been negative urine testing was negative chest x-ray with left basilar opacity Review of Systems Positive point and negatives has been mentioned in the HPI, complete review of systems was performed and all other systems are negative Past Medical History Past Medical History: Diabetes Mellitus, Osteoarthritis (OA) History of Any Multi-Drug Resistant Organisms: None Reported Additional Past Surgical History / Comment(s): Left foot surgery 2013,cataract surgery Past Anesthesia/Blood Transfusion Reactions: No Reported Reaction Past Psychological History: No Psychological Hx Reported Smoking Status: Never smoker Past Alcohol Use History: None Reported Past Drug Use History: None Reported - Past Family History Mother History Unknown: Yes Medications and Allergies Home Medications Medication Instructions Recorded Confirmed Type No Known Home Medications 04/29/24 04/29/24 History Allergies Allergy/AdvReac Type Severity Reaction Status Date / Time No Known Allergies Allergy Verified 04/29/24 18:54 Physical Exam Vitals: Vital Signs Temp Pulse Pulse Resp BP BP Pulse Ox 05/01/24 12:01 100.0 F H 90 20 154/98 05/01/24 09:00 89 20 123/71 96 05/01/24 08:00 98.8 F 85 19 119/69 95 05/01/24 07:00 86 17 124/79 94 L 05/01/24 06:00 89 10 L 118/68 95 05/01/24 05:00 87 16 127/72 95 05/01/24 04:00 98.1 F 90 13 138/82 95 05/01/24 03:00 93 22 125/73 95 05/01/24 02:00 92 22 118/66 94 L 05/01/24 01:00 92 16 130/71 92 L 05/01/24 00:18 90 25 H 130/71 93 L 05/01/24 00:00 98.6 F 92 17 144/82 93 L 04/30/24 23:00 96 11 L 128/69 95 04/30/24 22:00 91 16 132/68 95 04/30/24 21:00 93 18 131/70 95 04/30/24 20:00 98.8 F 93 20 133/77 96 04/30/24 19:00 92 16 130/69 95 04/30/24 18:00 99.0 F 90 16 134/92 96 04/30/24 17:00 91 16 133/71 95 04/30/24 16:00 99.0 F 92 22 133/73 95 04/30/24 15:00 93 24 109/59 96 04/30/24 14:00 93 16 124/65 96 04/30/24 13:00 93 16 113/70 96 Intake and Output 04/30/24 05/01/24 05/01/24 22:59 06:59 14:59 Intake Total 6910.492 8891.394 700 Output Total 1595 1075 265 Balance 68.422 340.394 435 Intake: IV 800 1400 200 Ampicillin-Sulbactam 3 gm 100 In Sodium Chloride 0.9% 100 ml @ 200 mls/hr IVPB Q8H JORGE A Rx#:[id number] D5-0.45% NaCl with KCl 600 1050 200 20Meq/l 1,000 ml @ 50 mls /hr IV .Q20H JORGE A Rx#: [id number] Potassium Chloride 10 meq 100 300 In Water For Injection 1 100ml.bag @ 100 mls/hr IVPB Q1HR JORGE A Rx#: [id number] cefTRIAXone 2 gm In 50 Sodium Chloride 0.9% 50 ml @ 100 mls/hr IVPB Q24H JORGE A Rx#:[id number] Intake, IV Titration 863.422 15.394 Amount D5-0.45% NaCl with KCl 750 20Meq/l 1,000 ml @ 50 mls /hr IV .Q20H JORGE A Rx#: [id number] Insulin Regular 100 unit 13.422 15.394 In Sodium Chloride 0.9% 100 ml @ 0.1 UNITS/KG/HR 7.33 mls/hr IV .[id number] JORGE A Rx#:[id number] Potassium Chloride 10 meq 100 In Water For Injection 1 100ml.bag @ 100 mls/hr IVPB Q1H JORGE A Rx#: [id number] Oral 500 Output: Urine 1595 1075 265 Other: Voiding Method Indwelling Catheter Indwelling Catheter Indwelling Catheter Weight 83.3 kg 83.3 kg GENERAL DESCRIPTION: Elderly male lying in bed, no distress. No tachypnea or accessory muscle of respiration use. HEENT: Shows Pallor , no scleral icterus. Oral mucous membrane is dry. No pharyngeal erythema or thrush NECK: Trachea central, no thyromegaly. LUNGS: Unlabored breathing. Decreased breath sound at the base HEART: S1, S2, regular rate and rhythm. No loud murmur ABDOMEN: Soft, no tenderness , guarding or rigidity, no organomegaly EXTREMITIES: No edema of feet. SKIN: No rash, no masses palpable. NEUROLOGICAL: The patient is awake, alert, oriented x3, mood and affect normal. Results CBC & Chem 7: 05/01/24 05:47 05/01/24 19:42 Labs: Abnormal Lab Results - Last 24 Hours (Table) 04/30/24 04/30/24 04/30/24 Range/Units 03:33 13:18 14:11 WBC 17.9 H (3.8-10.6) k/uL Hgb 12.0 L (13.0-17.5) gm/dL Hct 36.8 L (39.0-53.0) % RDW 16.6 H (11.5-15.5) % Neutrophils # 15.8 H (1.3-7.7) k/uL Lymphocytes # 0.8 L (1.0-4.8) k/uL Monocytes # 1.1 H (0-1.0) k/uL Sodium (137-145) mmol/L Potassium (3.5-5.1) mmol/L Chloride (98-107) mmol/L Carbon Dioxide (22-30) mmol/L BUN (9-20) mg/dL Creatinine (0.66-1.25) mg/dL Glucose (74-99) mg/dL POC Glucose (mg/dL) 146 H (70-110) mg/dL Calcium (8.4-10.2) mg/dL Phosphorus (2.5-4.5) mg/dL Procalcitonin 3.46 H (0.02-0.50) ng/mL 04/30/24 04/30/24 04/30/24 Range/Units 14:11 14:14 15:13 WBC (3.8-10.6) k/uL Hgb (13.0-17.5) gm/dL Hct (39.0-53.0) % RDW (11.5-15.5) % Neutrophils # (1.3-7.7) k/uL Lymphocytes # (1.0-4.8) k/uL Monocytes # (0-1.0) k/uL Sodium 133 L (137-145) mmol/L Potassium (3.5-5.1) mmol/L Chloride 112 H (98-107) mmol/L Carbon Dioxide 13 L (22-30) mmol/L BUN 24 H (9-20) mg/dL Creatinine 0.60 L (0.66-1.25) mg/dL Glucose 180 H (74-99) mg/dL POC Glucose (mg/dL) 178 H 207 H (70-110) mg/dL Calcium 8.1 L (8.4-10.2) mg/dL Phosphorus (2.5-4.5) mg/dL Procalcitonin (0.02-0.50) ng/mL 04/30/24 04/30/24 04/30/24 Range/Units 16:08 17:29 18:04 WBC (3.8-10.6) k/uL Hgb (13.0-17.5) gm/dL Hct (39.0-53.0) % RDW (11.5-15.5) % Neutrophils # (1.3-7.7) k/uL Lymphocytes # (1.0-4.8) k/uL Monocytes # (0-1.0) k/uL Sodium (137-145) mmol/L Potassium (3.5-5.1) mmol/L Chloride (98-107) mmol/L Carbon Dioxide (22-30) mmol/L BUN (9-20) mg/dL Creatinine (0.66-1.25) mg/dL Glucose (74-99) mg/dL POC Glucose (mg/dL) 242 H 293 H 299 H (70-110) mg/dL Calcium (8.4-10.2) mg/dL Phosphorus (2.5-4.5) mg/dL Procalcitonin (0.02-0.50) ng/mL 04/30/24 04/30/24 04/30/24 Range/Units 18:12 18:54 20:04 WBC 14.5 H (3.8-10.6) k/uL Hgb 11.8 L (13.0-17.5) gm/dL Hct 36.4 L (39.0-53.0) % RDW 16.6 H (11.5-15.5) % Neutrophils # 12.8 H (1.3-7.7) k/uL Lymphocytes # 0.8 L (1.0-4.8) k/uL Monocytes # (0-1.0) k/uL Sodium (137-145) mmol/L Potassium (3.5-5.1) mmol/L Chloride (98-107) mmol/L Carbon Dioxide (22-30) mmol/L BUN (9-20) mg/dL Creatinine (0.66-1.25) mg/dL Glucose (74-99) mg/dL POC Glucose (mg/dL) 294 H 262 H (70-110) mg/dL Calcium (8.4-10.2) mg/dL Phosphorus (2.5-4.5) mg/dL Procalcitonin (0.02-0.50) ng/mL 04/30/24 04/30/24 04/30/24 Range/Units 21:15 21:44 22:21 WBC (3.8-10.6) k/uL Hgb (13.0-17.5) gm/dL Hct (39.0-53.0) % RDW (11.5-15.5) % Neutrophils # (1.3-7.7) k/uL Lymphocytes # (1.0-4.8) k/uL Monocytes # (0-1.0) k/uL Sodium 133 L (137-145) mmol/L Potassium 3.2 L (3.5-5.1) mmol/L Chloride 112 H (98-107) mmol/L Carbon Dioxide 16 L (22-30) mmol/L BUN (9-20) mg/dL Creatinine 0.51 L (0.66-1.25) mg/dL Glucose 249 H (74-99) mg/dL POC Glucose (mg/dL) 248 H 235 H (70-110) mg/dL Calcium 8.0 L (8.4-10.2) mg/dL Phosphorus (2.5-4.5) mg/dL Procalcitonin (0.02-0.50) ng/mL 04/30/24 05/01/24 05/01/24 Range/Units 23:11 00:13 01:23 WBC (3.8-10.6) k/uL Hgb (13.0-17.5) gm/dL Hct (39.0-53.0) % RDW (11.5-15.5) % Neutrophils # (1.3-7.7) k/uL Lymphocytes # (1.0-4.8) k/uL Monocytes # (0-1.0) k/uL Sodium (137-145) mmol/L Potassium (3.5-5.1) mmol/L Chloride (98-107) mmol/L Carbon Dioxide (22-30) mmol/L BUN (9-20) mg/dL Creatinine (0.66-1.25) mg/dL Glucose (74-99) mg/dL POC Glucose (mg/dL) 224 H 225 H 241 H (70-110) mg/dL Calcium (8.4-10.2) mg/dL Phosphorus (2.5-4.5) mg/dL Procalcitonin (0.02-0.50) ng/mL 05/01/24 05/01/24 05/01/24 Range/Units 02:01 02:04 03:22 WBC (3.8-10.6) k/uL Hgb (13.0-17.5) gm/dL Hct (39.0-53.0) % RDW (11.5-15.5) % Neutrophils # (1.3-7.7) k/uL Lymphocytes # (1.0-4.8) k/uL Monocytes # (0-1.0) k/uL Sodium 133 L (137-145) mmol/L Potassium 3.4 L (3.5-5.1) mmol/L Chloride 113 H (98-107) mmol/L Carbon Dioxide 17 L (22-30) mmol/L BUN (9-20) mg/dL Creatinine 0.48 L (0.66-1.25) mg/dL Glucose 211 H (74-99) mg/dL POC Glucose (mg/dL) 215 H 222 H (70-110) mg/dL Calcium 7.9 L (8.4-10.2) mg/dL Phosphorus 1.6 L (2.5-4.5) mg/dL Procalcitonin (0.02-0.50) ng/mL 05/01/24 05/01/24 05/01/24 Range/Units 04:26 05:47 05:47 WBC 11.9 H (3.8-10.6) k/uL Hgb 11.4 L (13.0-17.5) gm/dL Hct 35.1 L (39.0-53.0) % RDW 16.8 H (11.5-15.5) % Neutrophils # 9.9 H (1.3-7.7) k/uL Lymphocytes # (1.0-4.8) k/uL Monocytes # (0-1.0) k/uL Sodium 133 L (137-145) mmol/L Potassium 3.3 L (3.5-5.1) mmol/L Chloride 112 H (98-107) mmol/L Carbon Dioxide 18 L (22-30) mmol/L BUN (9-20) mg/dL Creatinine 0.42 L (0.66-1.25) mg/dL Glucose 203 H (74-99) mg/dL POC Glucose (mg/dL) 207 H (70-110) mg/dL Calcium 7.9 L (8.4-10.2) mg/dL Phosphorus (2.5-4.5) mg/dL Procalcitonin (0.02-0.50) ng/mL 05/01/24 05/01/24 05/01/24 Range/Units 05:50 07:02 08:24 WBC (3.8-10.6) k/uL Hgb (13.0-17.5) gm/dL Hct (39.0-53.0) % RDW (11.5-15.5) % Neutrophils # (1.3-7.7) k/uL Lymphocytes # (1.0-4.8) k/uL Monocytes # (0-1.0) k/uL Sodium (137-145) mmol/L Potassium (3.5-5.1) mmol/L Chloride (98-107) mmol/L Carbon Dioxide (22-30) mmol/L BUN (9-20) mg/dL Creatinine (0.66-1.25) mg/dL Glucose (74-99) mg/dL POC Glucose (mg/dL) 204 H 182 H 229 H (70-110) mg/dL Calcium (8.4-10.2) mg/dL Phosphorus (2.5-4.5) mg/dL Procalcitonin (0.02-0.50) ng/mL 05/01/24 Range/Units 11:45 WBC (3.8-10.6) k/uL Hgb (13.0-17.5) gm/dL Hct (39.0-53.0) % RDW (11.5-15.5) % Neutrophils # (1.3-7.7) k/uL Lymphocytes # (1.0-4.8) k/uL Monocytes # (0-1.0) k/uL Sodium (137-145) mmol/L Potassium (3.5-5.1) mmol/L Chloride (98-107) mmol/L Carbon Dioxide (22-30) mmol/L BUN (9-20) mg/dL Creatinine (0.66-1.25) mg/dL Glucose (74-99) mg/dL POC Glucose (mg/dL) 221 H (70-110) mg/dL Calcium (8.4-10.2) mg/dL Phosphorus (2.5-4.5) mg/dL Procalcitonin (0.02-0.50) ng/mL Microbiology - Last 24 Hours (Table) 04/29/24 17:50 Blood Culture Gram Stain - Preliminary Blood Blood Culture - Preliminary Molecular ID Assessment and Plan (1) Sepsis Current Visit: Yes Status: Acute Code(s): A41.9 - SEPSIS, UNSPECIFIED ORGANISM SNOMED Code(s): 96014724 (2) Pneumonia Current Visit: Yes Status: Acute Code(s): J18.9 - PNEUMONIA, UNSPECIFIED ORGANISM SNOMED Code(s): 999731885 (3) Bacteremia Current Visit: Yes Status: Acute Code(s): R78.81 - BACTEREMIA SNOMED Code(s): 0981539 Plan: 1patient with initial hospital with sepsis in this patient who did have significant hypothermia elevated white count source is likely left-sided pneumonia likely community-acquired. 2patient with haemophilus influenza bacteremia source likely pneumonia. 3Rocephin 2 g daily will provide adequate antibiotic coverage will be continued while inpatient and hopefully transition to oral when stable for discharge we will follow on clinical condition and cultures to further adjust medication if needed Thank you for this consultation we will follow the patient along with you Dictation was produced using [employer] dictation software. please excuse any grammatical, word or spelling errors. Time with Patient: Greater than 30
[2024-05-02 02:27] LABS: Glucose,Whole Blood 226 mg/dL (70-110)
[2024-05-02 07:54] LABS: Glucose,Whole Blood 188 mg/dL (70-110)
[2024-05-02] MEDS ORDERED: Phosphorus Replacement Protoco 1 EACH MISC MISCELLANE PRN (07:56)
[2024-05-02 08:44] LABS: Anisocytosis Slight; HCT 36.6 % (39.0-53.0); HGB 11.9 gm/dL (13.0-17.5); MCH 26.5 pg (25.0-35.0); MCHC 32.7 g/dL (31.0-37.0); MCV 81.3 fL (80.0-100.0); Mean Platelet Volume 7.4; Microcytosis Slight; Platelet Count 236 k/uL (150-450); RDW 16.9 % (11.5-15.5); WBC 16.2 k/uL (3.8-10.6)
[2024-05-02 08:57] LABS: ALT 33 U/L (4-49); AST 44 U/L (17-59); African American GFR (CKD) >90 (>60 ml/min/1.73 sqM); Albumin 2.5 g/dL (3.5-5.0); Alkaline Phosphatase 85 U/L (38-126); Anion Gap 11 mmol/L; Blood Urea Nitrogen 10 mg/dL (9-20); Calcium 7.9 mg/dL (8.4-10.2); Carbon Dioxide 17 mmol/L (22-30); Chloride 107 mmol/L (98-107); Globulin 2.5 g/dL; Glucose 185 mg/dL (74-99); Non-African American GFR(CKD) >90 (>60 ml/min/1.73 sqM); Phosphorus 2.1 mg/dL (2.5-4.5); Potassium 3.4 mmol/L (3.5-5.1); Sodium 135 mmol/L (137-145); Total Bilirubin 0.9 mg/dL (0.2-1.3)
--- NOTE | 2024-05-02 11:32 | CDI ---
Documentation Clarification Form Date: 05/02/2024 From: Oneida Pierce RN CCDS Phone: [phone] Admit Date: 04/29/2024 06:34:00 PM Patient Name: Usama Murray Visit Number: [id number] Discharge Date: ATTENTION: The Clinical Documentation Specialists (CDI) and [facility] Coding Staff appreciate your assistance in clarifying documentation. Please respond to the clarification below the line at the bottom and electronically sign. The CDI & [facility] Coding staff will review the response and follow-up if needed. Please note: Queries are made part of the Legal Health Record. If you have any questions, please contact the author of this message via ITS. Doctor/Provider: Amador Suarez MD: Rhabdomyolysis is documented in the H&P 04/29 and in subsequent notes. Additional clarification regarding the type of rhabdomyolysis is requested. History/Risk Factors: 68-year-old male with a history of DM1 who presented with DKA, PNA and sepsis Clinical Indicators: 04/29 Triage VS: 108/55, 85.8, 51, 26, 98% room air 04/29 H&P, Chief Complaint: "Patient was seen in ER yesterday for vital syndrome and cough, afebrile and was subsequently discharged with negative viral panel. Today, patient was found behind [employer] by bystanders and was unresponsive." Assessment and Plan: # Rhabdomyolysis" 04/29 Creatine Kinase: 1562 04/29-05/02 Potassium range: 3.2(04/30)-5.0(04/29) 04/29-05/02 BUN: 45, 46, 44, 37, 31, 24, 19, 16, 14, 12, 10 Creatinine: 1.92, 1.84, 1.69, 0.96, 0.72, 0.60, 0.51, 0.48, 0.42, 0.46, 0.49 Treatment: Monitor Creatine Kinase, BUN, Creatinine Normal Saline 1000cc bolus once 04/29, then 200cc/hour 04/29 Please clarify the type of rhabdomyolysis, if known: [ ] Traumatic rhabdomyolysis due to prolonged immobility [ ] Non traumatic rhabdomyolysis due to infection (please specify) [x ] Other, please specify _due to hypothermia [ ] Unable to Determine MTDD
--- NOTE | 2024-05-02 11:34 | P.PN ---
Subjective Progress Note Date: 05/02/24 This is a 68-year-old white male with history of type 1 diabetes, presented to the ER with altered mental status, picture of metabolic encephalopathy, patient was actually in the ER the day before with symptoms of acute viral illness mostly cough, he had no fever, patient had negative workup and he was discharged home from the ER. The following day which is yesterday patient was found behind [employer] laying unresponsive and seen by bystanders. EMS was notified, patient was brought into the ER and he was noted to have acute diabetic ketoacidosis with hyperglycemia with sugar as high as over 600 his ketones were positive. Patient had significant anion gap metabolic acidosis with venous blood gas showing pH less than 6.82. Patient was placed on bicarb drip he was also placed on the DKA protocol, admitted to the ICU, and I saw the patient today on consultation, remains on insulin drip at 9.33 units/h patient is receiving D5 4 5 at 150 cc/h patient is empirically on Unasyn and he is on bi carb drip which I have discontinued this morning. His labs today showed bicarb of 17 potassium 3.3 anion gap is 6 BUN 31 creatinine 0.72. Blood sugar was 309 this morning. Drug screen came back basically unremarkableWBC count is 17.9 hemoglobin is 12.6, on admission the patient had WBC count of 25.9. Chest x-ray is suggestive of left lower lobe pneumonia and he does have right basilar atelectasis. Has patient is presently on Unasyn. CT of the brain came back unremarkable The patient is seen today May 01, 2024 in follow-up in the intensive care unit. He is awake and alert in no acute distress. He is maintaining O2 saturations in the 90s on room air. He has been afebrile. Hemodynamically stable. White count 11.9. Hemoglobin 11.5. Platelets 207. Sodium 133. Potassium 3.3. Chloride 112. Bicarb 18. BUN 14. Creatinine 0.42. Glucose 203. He is currently on ceftriaxone. He has been transition to Levemir and NovoLog sliding scale. Heparin for DVT prophylaxis. The patient is seen today May 02, 2024 in follow-up on the regular medical floor. He was transferred out of the intensive care unit yesterday. He is currently resting in bed. Awake and alert in no acute distress. He is maintaining O2 saturations in the 90s on room air. No IV fluids. Blood culture positive for haemophilus influenza. Sputum culture pending. He is currently on ceftriaxone. White count 16.2. Hemoglobin 11.9. Platelets 236. Sodium 135. Potassium 3.4. Bicarb 17. BUN 10. Creatinine 0.49. Glucose 185. He has been transition to Levemir and NovoLog sliding scale. Objective - Vital Signs Vital signs: Vital Signs Temp 97.8 F 05/02/24 07:52 Pulse 98 05/02/24 07:52 Resp 16 05/02/24 07:52 BP 178/81 05/02/24 07:52 Pulse Ox 94 L 05/02/24 07:52 FiO2 Intake & Output 05/01/24 05/02/24 05/02/24 18:59 06:59 18:59 Intake Total 1180 640 240 Output Total 265 Balance 915 640 240 Weight 83.3 kg Intake: IV 200 D5-0.45% NaCl with KCl 200 20Meq/l 1,000 ml @ 50 mls /hr IV .Q20H JORGE A Rx#: [id number] Intake, IV Titration 50 Amount cefTRIAXone 2 gm In 50 Sodium Chloride 0.9% 50 ml @ 100 mls/hr IVPB Q24H JORGE A Rx#:[id number] Oral 980 590 240 Output: Urine 265 Other: Voiding Method Indwelling Catheter # Voids 3 3 - Exam GENERAL EXAM: Alert, 68-year-old male patient, resting in bed, on room air, in no apparent distress. HEAD: Normocephalic. EYES: Normal reaction of pupils, equal size. NOSE: Clear with pink turbinates. THROAT: No erythema or exudates. NECK: No masses, no JVD. CHEST: No chest wall deformity. LUNGS: Equal air entry with no crackles, wheeze, rhonchi or dullness. CVS: S1 and S2 normal with no audible murmur, regular rhythm. ABDOMEN: No hepatosplenomegaly, normal bowel sounds, no guarding or rigidity. SPINE: No scoliosis or deformity SKIN: No rashes CENTRAL NERVOUS SYSTEM: No focal deficits, tone is normal in all 4 extremities. EXTREMITIES: There is no peripheral edema. No clubbing, no cyanosis. Peripheral pulses are intact. - Labs CBC & Chem 7: 05/02/24 08:30 05/02/24 08:30 Labs: Abnormal Lab Results - Last 24 Hours (Table) 05/01/24 05/01/24 05/01/24 Range/Units 11:45 14:17 14:17 WBC (3.8-10.6) k/uL Hgb (13.0-17.5) gm/dL Hct (39.0-53.0) % RDW (11.5-15.5) % Sodium 133 L (137-145) mmol/L Potassium 3.4 L (3.5-5.1) mmol/L Carbon Dioxide 19 L (22-30) mmol/L Creatinine 0.46 L (0.66-1.25) mg/dL Glucose 182 H (74-99) mg/dL POC Glucose (mg/dL) 221 H (70-110) mg/dL Calcium 8.3 L (8.4-10.2) mg/dL Phosphorus 1.0 L* (2.5-4.5) mg/dL Total Protein (6.3-8.2) g/dL Albumin (3.5-5.0) g/dL 05/01/24 05/01/24 05/02/24 Range/Units 16:54 20:17 02:26 WBC (3.8-10.6) k/uL Hgb (13.0-17.5) gm/dL Hct (39.0-53.0) % RDW (11.5-15.5) % Sodium (137-145) mmol/L Potassium (3.5-5.1) mmol/L Carbon Dioxide (22-30) mmol/L Creatinine (0.66-1.25) mg/dL Glucose (74-99) mg/dL POC Glucose (mg/dL) 181 H 185 H 226 H (70-110) mg/dL Calcium (8.4-10.2) mg/dL Phosphorus (2.5-4.5) mg/dL Total Protein (6.3-8.2) g/dL Albumin (3.5-5.0) g/dL 05/02/24 05/02/24 05/02/24 Range/Units 07:53 08:30 08:30 WBC 16.2 H (3.8-10.6) k/uL Hgb 11.9 L (13.0-17.5) gm/dL Hct 36.6 L (39.0-53.0) % RDW 16.9 H (11.5-15.5) % Sodium 135 L (137-145) mmol/L Potassium 3.4 L (3.5-5.1) mmol/L Carbon Dioxide 17 L (22-30) mmol/L Creatinine 0.49 L (0.66-1.25) mg/dL Glucose 185 H (74-99) mg/dL POC Glucose (mg/dL) 188 H (70-110) mg/dL Calcium 7.9 L (8.4-10.2) mg/dL Phosphorus 2.1 L (2.5-4.5) mg/dL Total Protein 5.0 L (6.3-8.2) g/dL Albumin 2.5 L (3.5-5.0) g/dL Microbiology - Last 24 Hours (Table) 04/29/24 17:50 Blood Culture Gram Stain - Final Blood Blood Culture - Final Haemophilus influenzae Molecular ID 05/01/24 11:05 Gram Stain - Preliminary Sputum Assessment and Plan Assessment: Acute diabetic ketoacidosis, recovered Acute left lower lobe pneumonia and right lower lobe atelectasis/possible pneumonia suspect some component of aspiration Bacteremia secondary to haemophilus influenza, initiated on ceftriaxone Pseudohyponatremia on presentation related to elevated blood sugar History of type 1 diabetes acute kidney injury most likely secondary to h ypovolemia Hypothermia on presentation most likely secondary to exposure Acute metabolic encephalopathy, resolved Plan: The patient was seen and evaluated Labs and medications reviewed Stable and on room air Obtain a follow-up chest x-ray Continued on ceftriaxone Continued on Levemir/NovoLog This patient was seen independently by the pulmonary nurse practitioner addressing pulmonary issues I have personally seen and examined the patient, performed the documentation and the assessment and plan as written. Number of minutes spent on the visit: 24 Dictation was produced using [employer] dictation software. Please excuse any grammatical, word or spelling errors.
[2024-05-02] MEDS: POTASSIUM CHLORIDE ER 20 MEQ TAB.ER PO SCH (11:58)
--- NOTE | 2024-05-02 12:09 | P.PN ---
Subjective Progress Note Date: 05/02/24 68 year old M with PMH of type 1 DM presents to the ED for unresponsiveness and altered mental status. He was found unresponsive at a closed [employer]ard shop. Family that lived close to the shop had noted him sitting outside with his head down since 8AM. In the ED he underwent extensive evaluation. T 85.8F, BP 108/55, RR 26, HR 51, 98% on RA. CBC, Coag panel, CMP significant for WBC 38.6, Plt 506, Na 122, Cl 91, bicarb < 5, BUN 45, Cr 1.92, glu 873, alk phos 162. Lactic acid 3.5. Mag 3. VBG pH < 6.82, pCO2 23. UA negative LE or nitrite. UDS neg. Salicylate, Acetaminophen, EtOH neg. Acetone positive. EKG sinus bradycardia. CT brain no acute process. Patient was bolused 1L NS, started on insulin drip and admitted to ICU for management of DKA. Started on Unasyn empirically for sepsis. CXR showed L basilar opacity, BCx + for H. influenza. Antibiotics switched to Rocephin. Insulin drip transitioned to SQ insulin 04/30. 05/02 Patient was seen and examined. Doing much better. BCx + H. influenza 04/29 maintained on Rocephin 2g IV QD (D2). CBC, CMP significant for WBC 16.2, Hg 11.9, Hct 36.6, Na 135, K 3.4, bicarb 17, glu 185, Ca 7.9, alb 2.5. Mag 2. Phos 2.1. POC glucose 181-229 over the past 24H. 24 units Novolog and 10 units Levemir over the past 24H. General: non toxic, no distress, appears at stated age Derm: warm, dry Head: atraumatic, normocephalic, symmetric Eyes: EOMI, no lid lag, anicteric sclera Mouth: no lip lesion, mucus membranes moist Cardiovascular: S1S2 tachy, no murmur Lungs: Clear to auscultation bilaterally, no rhonchi, no rales , no accessory muscle use Ext: no gross muscle atrophy, no edema, no contractures Neuro: no focal neuro deficits Psych: Alert, oriented x 2. Slow to respond Based on my assessment of this patient, this patient meets a high complexity level of care. Acute metabolic encephalopathy due to below Diabetic ketoacidosis: Levemir increased to 20 units SQ QD and Novolog 6 units TID with ISS. A1c 12.4. Accuchecks ACHS. Sepsis due to H. influenza bacteremia: Likely PNA. Hypothermic. Tachypneic. Procal 3.46. Continue Rocephin 2g IV QD. ID on board. Hypokalemia: Replace via protocol. Hypophosphatemia: Replace via protocol. Rhabdomyolysis: IV hydration as above. Pseudohyponatremia Microcytic anemia: Dilutional. No signs of active bleeding. Monitor Hg. Resolved: DIANA, Lactic acidosis, Hypothermia CODE STATUS: FULL CODE. DVT Prophylaxis: Heparin SQ GI Prophylaxis: Designated medical POA if patient is not able to make medical decisions for themselves: I have reviewed the following event management consultant notes: Pulmonary, ID. I have reviewed the results of the following tests: CBC, CMP, Mag, Phos I have ordered the following tests: CBC and BMP in the AM. I have discussed the care of this patient with the following independent historian: I have independently interpreted the following test below: I have discussed the management of this patient with the following physician: Objective - Vital Signs Vital signs: Vital Signs Temp 97.8 F 05/02/24 07:52 Pulse 98 05/02/24 07:52 Resp 16 05/02/24 07:52 BP 178/81 05/02/24 07:52 Pulse Ox 94 L 05/02/24 07:52 FiO2 Intake & Output 05/01/24 05/02/24 05/02/24 18:59 06:59 18:59 Intake Total 1180 640 240 Output Total 265 Balance 915 640 240 Weight 83.3 kg Intake: IV 200 D5-0.45% NaCl with KCl 200 20Meq/l 1,000 ml @ 50 mls /hr IV .Q20H JORGE A Rx#: [id number] Intake, IV Titration 50 Amount cefTRIAXone 2 gm In 50 Sodium Chloride 0.9% 50 ml @ 100 mls/hr IVPB Q24H JORGE A Rx#:[id number] Oral 980 590 240 Output: Urine 265 Other: Voiding Method Indwelling Catheter # Voids 3 3 - Labs CBC & Chem 7: 05/02/24 08:30 05/02/24 08:30 Labs: Abnormal Lab Results - Last 24 Hours (Table) 05/01/24 05/01/24 05/01/24 Range/Units 14:17 14:17 16:54 WBC (3.8-10.6) k/uL Hgb (13.0-17.5) gm/dL Hct (39.0-53.0) % RDW (11.5-15.5) % Sodium 133 L (137-145) mmol/L Potassium 3.4 L (3.5-5.1) mmol/L Carbon Dioxide 19 L (22-30) mmol/L Creatinine 0.46 L (0.66-1.25) mg/dL Glucose 182 H (74-99) mg/dL POC Glucose (mg/dL) 181 H (70-110) mg/dL Calcium 8.3 L (8.4-10.2) mg/dL Phosphorus 1.0 L* (2.5-4.5) mg/dL Total Protein (6.3-8.2) g/dL Albumin (3.5-5.0) g/dL 05/01/24 05/02/24 05/02/24 Range/Units 20:17 02:26 07:53 WBC (3.8-10.6) k/uL Hgb (13.0-17.5) gm/dL Hct (39.0-53.0) % RDW (11.5-15.5) % Sodium (137-145) mmol/L Potassium (3.5-5.1) mmol/L Carbon Dioxide (22-30) mmol/L Creatinine (0.66-1.25) mg/dL Glucose (74-99) mg/dL POC Glucose (mg/dL) 185 H 226 H 188 H (70-110) mg/dL Calcium (8.4-10.2) mg/dL Phosphorus (2.5-4.5) mg/dL Total Protein (6.3-8.2) g/dL Albumin (3.5-5.0) g/dL 05/02/24 05/02/24 Range/Units 08:30 08:30 WBC 16.2 H (3.8-10.6) k/uL Hgb 11.9 L (13.0-17.5) gm/dL Hct 36.6 L (39.0-53.0) % RDW 16.9 H (11.5-15.5) % Sodium 135 L (137-145) mmol/L Potassium 3.4 L (3.5-5.1) mmol/L Carbon Dioxide 17 L (22-30) mmol/L Creatinine 0.49 L (0.66-1.25) mg/dL Glucose 185 H (74-99) mg/dL POC Glucose (mg/dL) (70-110) mg/dL Calcium 7.9 L (8.4-10.2) mg/dL Phosphorus 2.1 L (2.5-4.5) mg/dL Total Protein 5.0 L (6.3-8.2) g/dL Albumin 2.5 L (3.5-5.0) g/dL Microbiology - Last 24 Hours (Table) 04/29/24 17:50 Blood Culture Gram Stain - Final Blood Blood Culture - Final Haemophilus influenzae Molecular ID 05/01/24 11:05 Gram Stain - Preliminary Sputum
[2024-05-02 12:16] LABS: Glucose,Whole Blood 205 mg/dL (70-110)
--- NOTE | 2024-05-02 12:18 | XR ---
EXAMINATION TYPE: XR chest 1V portable DATE OF EXAM: 05/02/2024 12:02 PM COMPARISON: Chest radiographs from 04/30/2024 TECHNIQUE: XR chest 1V portable Portable AP radiograph of the chest. CLINICAL INDICATION:Male, 68 years old with history of Follow up pneumonia; FINDINGS: Lungs/Pleura: Blunting of the right carotid triangle. Development of right patchy basilar airspace op acities. Pulmonary vascularity: Unremarkable. Heart/mediastinum: Cardiomediastinal silhouette is prominent in size. Musculoskeletal: No acute osseous pathology. Right shoulder arthropathy. IMPRESSION: Small right pleural effusion with patchy right basilar infiltrates. [facility], , 05/02/2024 12:16 PM
[2024-05-02] MEDS: INSULIN ASPART (NovoLOG) 100 UNIT/ML VIAL SQ SCH (12:32)
[2024-05-02] MEDS: POTAS-SOD-PHOS 280-160-250 MG 1 EACH PACKET PO ONE (12:57)
--- NOTE | 2024-05-02 14:23 | P.PN ---
Subjective Progress Note Date: 05/02/24 Principal diagnosis: Reason for follow-up with same from haemophilus influenza bacteremia/pneumonia Patient is a 68-year-old male with a past medical history significant for diabetes mellitus osteoarthritis patient has been brought to the hospital after the patient was found laying behind a [employer] shop initiate admission to the ICU for DKA he did have a haemophilus bacteremia prompting this consultation. On today's evaluation that is 05/02/2024, Patient is afebrile this morning patient denies having any chest pain shortness of breath or any worsening cough, the patient is currently on room air, patient denies any abdominal pain no diarrhea no nausea no vomiting. Patient white count is 16.2 creatinine is 0.49 blood culture with haemophilus influenza sputum showing Lizzy chest x-ray this morning right effusion with patchy right basilar infiltrate Objective - Vital Signs Vital signs: Vital Signs Temp 97.8 F 05/02/24 07:52 Pulse 98 05/02/24 07:52 Resp 16 05/02/24 07:52 BP 178/81 05/02/24 07:52 Pulse Ox 94 L 05/02/24 07:52 FiO2 Intake & Output 05/01/24 05/02/24 05/02/24 18:59 06:59 18:59 Intake Total 1180 640 240 Output Total 265 Balance 915 640 240 Weight 83.3 kg Intake: IV 200 D5-0.45% NaCl with KCl 200 20Meq/l 1,000 ml @ 50 mls /hr IV .Q20H JORGE A Rx#: [id number] Intake, IV Titration 50 Amount cefTRIAXone 2 gm In 50 Sodium Chloride 0.9% 50 ml @ 100 mls/hr IVPB Q24H JORGE A Rx#:[id number] Oral 980 590 240 Output: Urine 265 Other: Voiding Method Indwelling Catheter # Voids 3 3 - Exam GENERAL DESCRIPTION: An elderly male lying in bed in no distress RESPIRATORY SYSTEM: Unlabored breathing , decreased breath sounds at bases HEART: S1 S2 regular rate and rhythm , ABDOMEN: Soft , no tenderness EXTREMITIES: No edema feet - Labs CBC & Chem 7: 05/02/24 08:30 05/02/24 08:30 Labs: Abnormal Lab Results - Last 24 Hours (Table) 05/01/24 05/01/24 05/01/24 Range/Units 11:45 14:17 14:17 WBC (3.8-10.6) k/uL Hgb (13.0-17.5) gm/dL Hct (39.0-53.0) % RDW (11.5-15.5) % Sodium 133 L (137-145) mmol/L Potassium 3.4 L (3.5-5.1) mmol/L Carbon Dioxide 19 L (22-30) mmol/L Creatinine 0.46 L (0.66-1.25) mg/dL Glucose 182 H (74-99) mg/dL POC Glucose (mg/dL) 221 H (70-110) mg/dL Calcium 8.3 L (8.4-10.2) mg/dL Phosphorus 1.0 L* (2.5-4.5) mg/dL Total Protein (6.3-8.2) g/dL Albumin (3.5-5.0) g/dL 05/01/24 05/01/24 05/02/24 Range/Units 16:54 20:17 02:26 WBC (3.8-10.6) k/uL Hgb (13.0-17.5) gm/dL Hct (39.0-53.0) % RDW (11.5-15.5) % Sodium (137-145) mmol/L Potassium (3.5-5.1) mmol/L Carbon Dioxide (22-30) mmol/L Creatinine (0.66-1.25) mg/dL Glucose (74-99) mg/dL POC Glucose (mg/dL) 181 H 185 H 226 H (70-110) mg/dL Calcium (8.4-10.2) mg/dL Phosphorus (2.5-4.5) mg/dL Total Protein (6.3-8.2) g/dL Albumin (3.5-5.0) g/dL 05/02/24 05/02/24 05/02/24 Range/Units 07:53 08:30 08:30 WBC 16.2 H (3.8-10.6) k/uL Hgb 11.9 L (13.0-17.5) gm/dL Hct 36.6 L (39.0-53.0) % RDW 16.9 H (11.5-15.5) % Sodium 135 L (137-145) mmol/L Potassium 3.4 L (3.5-5.1) mmol/L Carbon Dioxide 17 L (22-30) mmol/L Creatinine 0.49 L (0.66-1.25) mg/dL Glucose 185 H (74-99) mg/dL POC Glucose (mg/dL) 188 H (70-110) mg/dL Calcium 7.9 L (8.4-10.2) mg/dL Phosphorus 2.1 L (2.5-4.5) mg/dL Total Protein 5.0 L (6.3-8.2) g/dL Albumin 2.5 L (3.5-5.0) g/dL Microbiology - Last 24 Hours (Table) 04/29/24 17:50 Blood Culture Gram Stain - Final Blood Blood Culture - Final Haemophilus influenzae Molecular ID 05/01/24 11:05 Gram Stain - Preliminary Sputum Assessment and Plan (1) Sepsis Current Visit: Yes Status: Acute Code(s): A41.9 - SEPSIS, UNSPECIFIED ORGANISM SNOMED Code(s): 44114949 (2) Pneumonia Current Visit: Yes Status: Acute Code(s): J18.9 - PNEUMONIA, UNSPECIFIED ORGANISM SNOMED Code(s): 328837283 (3) Bacteremia Current Visit: Yes Status: Acute Code(s): R78.81 - BACTEREMIA SNOMED Code(s): 0969169 Plan: 1patient with initial hospital with sepsis in this patient who did have significant hypothermia elevated white count source is likely left-sided pneumonia likely community-acquired. 2patient with haemophilus influenza bacteremia source likely pneumonia. 3patient sputum is growing Lizzy more likely colonizer and no need for antifungal 4we will continue with Rocephin 2 g daily and monitor clinical course closely Dictation was produced using [employer] dictation software. please excuse any grammatical, word or spelling errors. Time with Patient: Less than 30
[2024-05-02 17:11] LABS: Glucose,Whole Blood 145 mg/dL (70-110)
[2024-05-02 20:16] LABS: Glucose,Whole Blood 144 mg/dL (70-110)
[2024-05-03 02:02] LABS: Glucose,Whole Blood 190 mg/dL (70-110)
[2024-05-03 03:28] LABS: Phosphorus 1.4 mg/dL (2.4-5.1); Potassium 3.5 mmol/L (3.5-5.5)
[2024-05-03 05:25] LABS: Anisocytosis Slight; HCT 38.8 % (39.0-53.0); HGB 12.6 gm/dL (13.0-17.5); MCH 26.7 pg (25.0-35.0); MCHC 32.5 g/dL (31.0-37.0); MCV 82.2 fL (80.0-100.0); Mean Platelet Volume 7.9; Platelet Count 274 k/uL (150-450); RBC 4.72 m/uL (4.30-5.90); RDW 16.9 % (11.5-15.5); WBC 22.3 k/uL (3.8-10.6)
[2024-05-03 05:41] LABS: ALT 36 U/L (4-49); AST 40 U/L (17-59); African American GFR (CKD) >90 (>60 ml/min/1.73 sqM); Albumin 2.7 g/dL (3.5-5.0); Alkaline Phosphatase 86 U/L (38-126); Anion Gap 13 mmol/L; Blood Urea Nitrogen 11 mg/dL (9-20); Calcium 7.9 mg/dL (8.4-10.2); Carbon Dioxide 19 mmol/L (22-30); Chloride 104 mmol/L (98-107); Globulin 2.6 g/dL; Glucose 224 mg/dL (74-99); Non-African American GFR(CKD) >90 (>60 ml/min/1.73 sqM); Phosphorus 2.4 mg/dL (2.5-4.5); Potassium 3.4 mmol/L (3.5-5.1); Sodium 136 mmol/L (137-145); Total Bilirubin 0.9 mg/dL (0.2-1.3); Total Protein 5.3 g/dL (6.3-8.2)
[2024-05-03] MEDS: POTASSIUM CHLORIDE ER 20 MEQ TAB.ER PO SCH ×3 (06:28→21:42)
[2024-05-03 07:47] LABS: Glucose,Whole Blood 231 mg/dL (70-110)
[2024-05-03] MEDS: INSULIN DETEMIR (LEVEMIR) 100 UNIT/ML SYR SQ SCH (08:12)
--- NOTE | 2024-05-03 11:39 | P.PN ---
Subjective Progress Note Date: 05/03/24 This is a 68-year-old white male with history of type 1 diabetes, presented to the ER with altered mental status, picture of metabolic encephalopathy, patient was actually in the ER the day before with symptoms of acute viral illness mostly cough, he had no fever, patient had negative workup and he was discharged home from the ER. The following day which is yesterday patient was found behind [employer] laying unresponsive and seen by bystanders. EMS was notified, patient was brought into the ER and he was noted to have acute diabetic ketoacidosis with hyperglycemia with sugar as high as over 600 his ketones were positive. Patient had significant anion gap metabolic acidosis with venous blood gas showing pH less than 6.82. Patient was placed on bicarb drip he was also placed on the DKA protocol, admitted to the ICU, and I saw the patient today on consultation, remains on insulin drip at 9.33 units/h patient is receiving D5 4 5 at 150 cc/h patient is empirically on Unasyn and he is on bi carb drip which I have discontinued this morning. His labs today showed bicarb of 17 potassium 3.3 anion gap is 6 BUN 31 creatinine 0.72. Blood sugar was 309 this morning. Drug screen came back basically unremarkableWBC count is 17.9 hemoglobin is 12.6, on admission the patient had WBC count of 25.9. Chest x-ray is suggestive of left lower lobe pneumonia and he does have right basilar atelectasis. Has patient is presently on Unasyn. CT of the brain came back unremarkable The patient is seen today May 01, 2024 in follow-up in the intensive care unit. He is awake and alert in no acute distress. He is maintaining O2 saturations in the 90s on room air. He has been afebrile. Hemodynamically stable. White count 11.9. Hemoglobin 11.5. Platelets 207. Sodium 133. Potassium 3.3. Chloride 112. Bicarb 18. BUN 14. Creatinine 0.42. Glucose 203. He is currently on ceftriaxone. He has been transition to Levemir and NovoLog sliding scale. Heparin for DVT prophylaxis. The patient is seen today May 02, 2024 in follow-up on the regular medical floor. He was transferred out of the intensive care unit yesterday. He is currently resting in bed. Awake and alert in no acute distress. He is maintaining O2 saturations in the 90s on room air. No IV fluids. Blood culture positive for haemophilus influenza. Sputum culture pending. He is currently on ceftriaxone. White count 16.2. Hemoglobin 11.9. Platelets 236. Sodium 135. Potassium 3.4. Bicarb 17. BUN 10. Creatinine 0.49. Glucose 185. He has been transition to Levemir and NovoLog sliding scale. The patient is seen today May 03, 2024 in follow-up on the regular medical floor. He is currently sitting up in bed having breakfast. Awake and alert in no acute distress. He is maintaining good O2 saturations in the 90s on room air. No IV fluids. He is currently afebrile. Hemodynamically stable. White count 22.3. Hemoglobin 12.6. Platelets 274. Sodium 136. Potassium 3.4. Bicarb 19. BUN 11. Creatinine 0.49. Glucose 244. He is continued on ceftriaxone. Heparin for DVT prophylaxis. Protonix for GI prophylaxis. Maintained on Levemir and NovoLog sliding scale. Chest x-ray shows a small right pleural effusion with patchy basilar infiltrate. Objective - Vital Signs Vital signs: Vital Signs Temp 97.9 F 05/03/24 07:51 Pulse 88 05/03/24 07:51 Resp 16 05/03/24 07:51 BP 128/71 05/03/24 07:51 Pulse Ox 95 05/03/24 07:51 FiO2 Intake & Output 05/02/24 05/03/24 05/03/24 18:59 06:59 18:59 Intake Total 240 50 Output Total 300 Balance -60 50 Intake: Intake, IV Titration 50 Amount cefTRIAXone 2 gm In 50 Sodium Chloride 0.9% 50 ml @ 100 mls/hr IVPB Q24H [facility] Rx#:[id number] Oral 240 Output: Urine 300 Other: Voiding Method Toilet Urinal Diaper # Voids 1 - Exam GENERAL EXAM: Alert, 68-year-old male, sitting up in bed having breakfast, on room air, in no apparent distress. HEAD: Normocephalic. EYES: Normal reaction of pupils, equal size. NOSE: Clear with pink turbinates. THROAT: No erythema or exudates. NECK: No masses, no JVD. CHEST: No chest wall deformity. LUNGS: Equal air entry with no crackles, wheeze, rhonchi or dullness. CVS: S1 and S2 normal with no audible murmur, regular rhythm. ABDOMEN: No hepatosplenomegaly, normal bowel sounds, no guarding or rigidity. SPINE: No scoliosis or deformity SKIN: No rashes CENTRAL NERVOUS SYSTEM: No focal deficits, tone is normal in all 4 extremities. EXTREMITIES: There is no peripheral edema. No clubbing, no cyanosis. Peripheral pulses are intact. - Labs CBC & Chem 7: 05/03/24 04:47 05/03/24 04:47 Labs: Abnormal Lab Results - Last 24 Hours (Table) 05/02/24 05/02/24 05/02/24 Range/Units 12:15 16:58 17:09 WBC (3.8-10.6) k/uL Hgb (13.0-17.5) gm/dL Hct (39.0-53.0) % RDW (11.5-15.5) % Sodium (137-145) mmol/L Potassium (3.5-5.1) mmol/L Carbon Dioxide (22-30) mmol/L Creatinine (0.66-1.25) mg/dL Glucose (74-99) mg/dL POC Glucose (mg/dL) 205 H 145 H (70-110) mg/dL Calcium (8.4-10.2) mg/dL Phosphorus 1.4 L (2.4-5.1) mg/dL Total Protein (6.3-8.2) g/dL Albumin (3.5-5.0) g/dL 05/02/24 05/03/24 05/03/24 Range/Units 20:14 02:00 04:47 WBC 22.3 H (3.8-10.6) k/uL Hgb 12.6 L (13.0-17.5) gm/dL Hct 38.8 L (39.0-53.0) % RDW 16.9 H (11.5-15.5) % Sodium (137-145) mmol/L Potassium (3.5-5.1) mmol/L Carbon Dioxide (22-30) mmol/L Creatinine (0.66-1.25) mg/dL Glucose (74-99) mg/dL POC Glucose (mg/dL) 144 H 190 H (70-110) mg/dL Calcium (8.4-10.2) mg/dL Phosphorus (2.4-5.1) mg/dL Total Protein (6.3-8.2) g/dL Albumin (3.5-5.0) g/dL 05/03/24 05/03/24 Range/Units 04:47 07:46 WBC (3.8-10.6) k/uL Hgb (13.0-17.5) gm/dL Hct (39.0-53.0) % RDW (11.5-15.5) % Sodium 136 L (137-145) mmol/L Potassium 3.4 L (3.5-5.1) mmol/L Carbon Dioxide 19 L (22-30) mmol/L Creatinine 0.49 L (0.66-1.25) mg/dL Glucose 224 H (74-99) mg/dL POC Glucose (mg/dL) 231 H (70-110) mg/dL Calcium 7.9 L (8.4-10.2) mg/dL Phosphorus 2.4 L (2.4-5.1) mg/dL Total Protein 5.3 L (6.3-8.2) g/dL Albumin 2.7 L (3.5-5.0) g/dL Microbiology - Last 24 Hours (Table) 05/01/24 11:05 Gram Stain - Final Sputum Sputum Culture - Final Lizzy albicans 04/29/24 17:50 Blood Culture Gram Stain - Final Blood Blood Culture - Final Haemophilus influenzae Molecular ID Assessment and Plan Assessment: Acute diabetic ketoacidosis, recovered Acute left lower lobe pneumonia and right lower lobe atelectasis/possible pneumonia suspect some component of aspiration Bacteremia secondary to haemophilus influenza, initiated on ceftriaxone Pseudohyponatremia on presentation related to elevated blood sugar History of type 1 diabetes acute kidney injury most likely secondary to hypov olemia Hypothermia on presentation most likely secondary to exposure Acute metabolic encephalopathy, resolved Plan: The patient was seen and evaluated Chest x-ray, labs and medications reviewed Stable and on room air Antibiotics per ID service This patient was seen independently by the pulmonary nurse practitioner addressing pulmonary issues I have personally seen and examined the patient, performed the documentation and the assessment and plan as written. Number of minutes spent on the visit: 22 Dictation was produced using [employer] dictation software. Please excuse any grammatical, word or spelling errors.
[2024-05-03 12:11] LABS: Glucose,Whole Blood 278 mg/dL (70-110)
--- NOTE | 2024-05-03 12:37 | P.PN ---
Subjective Progress Note Date: 05/03/24 Hospital course 68 year old M with PMH of type 1 DM presents to the ED for unresponsiveness and altered mental status. He was found unresponsive at a closed custard shop. Family that lived close to the shop had noted him sitting outside with his head down since 8AM. In the ED he underwent extensive evaluation. T 85.8F, BP 108/55, RR 26, HR 51, 98% on RA. CBC, Coag panel, CMP significant for WBC 38.6, Plt 506, Na 122, Cl 91, bicarb < 5, BUN 45, Cr 1.92, glu 873, alk phos 162. Lactic acid 3.5. Mag 3. VBG pH < 6.82, pCO2 23. UA negative LE or nitrite. UDS neg. Salicylate, Acetaminophen, EtOH neg. Acetone positive. EKG sinus bradycardia. CT brain no acute process. Patient was bolused 1L NS, started on insulin drip and admitted to ICU for management of DKA. Started on Unasyn empirically for sepsis. CXR showed L basilar opacity, BCx + for H. influenza. Antibiotics switched to Rocephin. Insulin drip transitioned to SQ insulin 04/30. Patient seen this morning. He states that he lives in a homeless assisted. Patient states that he does have Lantus and fast acting insulin supplies. Physical exam General examination - Alert and Oriented 3 in NAD Heart - + S1S2 no murmurs Lungs - Clear to auscultation Abdomen soft NT ND +ve BS Extremities - No edema [employer]IC[employer] - Moving all 4 extremities spontaneously Psych - Calm and cooperative Assessment and plan Acute metabolic encephalopathy Diabetic ketoacidosis Continue with Levemir 20 units subcu daily and NovoLog 6 units 3 times daily with sliding scale insulin Hemoglobin A1c 12.4 This morning bicarb is 19 and blood glucose range is from 144 to 231 Sepsis due to H. influenzae bacteremia Likely source is pneumonia This morning WBC increased from 16.2-22.3 Hypokalemia Potassium this morning is 3.4. Hypophosphatemia Resolved Pseudohyponatremia Resolved Macrocytic anemia This morning hemoglobin stable at 12.6 Acute kidney injury Resolved Lactic acidosis Resolved DVT prophylaxis: Subcu heparin Objective - Vital Signs Vital signs: Vital Signs Temp 98.4 F 05/03/24 12:35 Pulse 92 05/03/24 12:35 Resp 16 05/03/24 12:35 BP 145/76 05/03/24 12:35 Pulse Ox 93 L 05/03/24 12:35 FiO2 Intake & Output 05/02/24 05/03/24 05/03/24 18:59 06:59 18:59 Intake Total 240 50 Output Total 300 Balance -60 50 Intake: Intake, IV Titration 50 Amount cefTRIAXone 2 gm In 50 Sodium Chloride 0.9% 50 ml @ 100 mls/hr IVPB Q24H [facility] Rx#:[id number] Oral 240 Output: Urine 300 Other: Voiding Method Toilet Urinal Diaper # Voids 1 - Labs CBC & Chem 7: 05/03/24 04:47 05/03/24 04:47 Labs: Abnormal Lab Results - Last 24 Hours (Table) 05/02/24 05/02/24 05/02/24 Range/Units 16:58 17:09 20:14 WBC (3.8-10.6) k/uL Hgb (13.0-17.5) gm/dL Hct (39.0-53.0) % RDW (11.5-15.5) % Sodium (137-145) mmol/L Potassium (3.5-5.1) mmol/L Carbon Dioxide (22-30) mmol/L Creatinine (0.66-1.25) mg/dL Glucose (74-99) mg/dL POC Glucose (mg/dL) 145 H 144 H (70-110) mg/dL Calcium (8.4-10.2) mg/dL Phosphorus 1.4 L (2.4-5.1) mg/dL Total Protein (6.3-8.2) g/dL Albumin (3.5-5.0) g/dL 05/03/24 05/03/24 05/03/24 Range/Units 02:00 04:47 04:47 WBC 22.3 H (3.8-10.6) k/uL Hgb 12.6 L (13.0-17.5) gm/dL Hct 38.8 L (39.0-53.0) % RDW 16.9 H (11.5-15.5) % Sodium 136 L (137-145) mmol/L Potassium 3.4 L (3.5-5.1) mmol/L Carbon Dioxide 19 L (22-30) mmol/L Creatinine 0.49 L (0.66-1.25) mg/dL Glucose 224 H (74-99) mg/dL POC Glucose (mg/dL) 190 H (70-110) mg/dL Calcium 7.9 L (8.4-10.2) mg/dL Phosphorus 2.4 L (2.4-5.1) mg/dL Total Protein 5.3 L (6.3-8.2) g/dL Albumin 2.7 L (3.5-5.0) g/dL 05/03/24 05/03/24 Range/Units 07:46 12:10 WBC (3.8-10.6) k/uL Hgb (13.0-17.5) gm/dL Hct (39.0-53.0) % RDW (11.5-15.5) % Sodium (137-145) mmol/L Potassium (3.5-5.1) mmol/L Carbon Dioxide (22-30) mmol/L Creatinine (0.66-1.25) mg/dL Glucose (74-99) mg/dL POC Glucose (mg/dL) 231 H 278 H (70-110) mg/dL Calcium (8.4-10.2) mg/dL Phosphorus (2.4-5.1) mg/dL Total Protein (6.3-8.2) g/dL Albumin (3.5-5.0) g/dL Microbiology - Last 24 Hours (Table) 05/01/24 11:05 Gram Stain - Final Sputum Sputum Culture - Final Lizzy albicans 04/29/24 17:50 Blood Culture Gram Stain - Final Blood Blood Culture - Final Haemophilus influenzae Molecular ID
--- NOTE | 2024-05-03 12:55 | P.PN ---
Subjective Progress Note Date: 05/03/24 Principal diagnosis: Reason for follow-up with same from haemophilus influenza bacteremia/pneumonia Patient is a 68-year-old male with a past medical history significant for diabetes mellitus osteoarthritis patient has been brought to the hospital after the patient was found laying behind a custard shop initiate admission to the ICU for DKA he did have a haemophilus bacteremia prompting this consultation. On today's evaluation that is 05/03/2024,the patient denies any fever or any chills, patient is breathing comfortably on room air, the patient denies chest pain shortness of breath and no worsening ough, patient denies abdominal pain, no nausea vomiting or diarrhea. Patient white count is up to 22.3, creatinine 0.49 sputum is growing Lizzy albicans Objective - Vital Signs Vital signs: Vital Signs Temp 97.9 F 05/03/24 07:51 Pulse 88 05/03/24 07:51 Resp 16 05/03/24 07:51 BP 128/71 05/03/24 07:51 Pulse Ox 95 05/03/24 07:51 FiO2 Intake & Output 05/02/24 05/03/24 05/03/24 18:59 06:59 18:59 Intake Total 240 50 Output Total 300 Balance -60 50 Intake: Intake, IV Titration 50 Amount cefTRIAXone 2 gm In 50 Sodium Chloride 0.9% 50 ml @ 100 mls/hr IVPB Q24H [facility] Rx#:[id number] Oral 240 Output: Urine 300 Other: Voiding Method Toilet Urinal Diaper # Voids 1 - Exam GENERAL DESCRIPTION: An elderly male lying in bed in no distress RESPIRATORY SYSTEM: Unlabored breathing , decreased breath sounds at bases HEART: S1 S2 regular rate and rhythm , ABDOMEN: Soft , no tenderness EXTREMITIES: No edema feet - Labs CBC & Chem 7: 05/03/24 04:47 05/03/24 04:47 Labs: Abnormal Lab Results - Last 24 Hours (Table) 05/02/24 05/02/24 05/02/24 Range/Units 16:58 17:09 20:14 WBC (3.8-10.6) k/uL Hgb (13.0-17.5) gm/dL Hct (39.0-53.0) % RDW (11.5-15.5) % Sodium (137-145) mmol/L Potassium (3.5-5.1) mmol/L Carbon Dioxide (22-30) mmol/L Creatinine (0.66-1.25) mg/dL Glucose (74-99) mg/dL POC Glucose (mg/dL) 145 H 144 H (70-110) mg/dL Calcium (8.4-10.2) mg/dL Phosphorus 1.4 L (2.4-5.1) mg/dL Total Protein (6.3-8.2) g/dL Albumin (3.5-5.0) g/dL 05/03/24 05/03/24 05/03/24 Range/Units 02:00 04:47 04:47 WBC 22.3 H (3.8-10.6) k/uL Hgb 12.6 L (13.0-17.5) gm/dL Hct 38.8 L (39.0-53.0) % RDW 16.9 H (11.5-15.5) % Sodium 136 L (137-145) mmol/L Potassium 3.4 L (3.5-5.1) mmol/L Carbon Dioxide 19 L (22-30) mmol/L Creatinine 0.49 L (0.66-1.25) mg/dL Glucose 224 H (74-99) mg/dL POC Glucose (mg/dL) 190 H (70-110) mg/dL Calcium 7.9 L (8.4-10.2) mg/dL Phosphorus 2.4 L (2.4-5.1) mg/dL Total Protein 5.3 L (6.3-8.2) g/dL Albumin 2.7 L (3.5-5.0) g/dL 05/03/24 05/03/24 Range/Units 07:46 12:10 WBC (3.8-10.6) k/uL Hgb (13.0-17.5) gm/dL Hct (39.0-53.0) % RDW (11.5-15.5) % Sodium (137-145) mmol/L Potassium (3.5-5.1) mmol/L Carbon Dioxide (22-30) mmol/L Creatinine (0.66-1.25) mg/dL Glucose (74-99) mg/dL POC Glucose (mg/dL) 231 H 278 H (70-110) mg/dL Calcium (8.4-10.2) mg/dL Phosphorus (2.4-5.1) mg/dL Total Protein (6.3-8.2) g/dL Albumin (3.5-5.0) g/dL Microbiology - Last 24 Hours (Table) 05/01/24 11:05 Gram Stain - Final Sputum Sputum Culture - Final Lizzy albicans 04/29/24 17:50 Blood Culture Gram Stain - Final Blood Blood Culture - Final Haemophilus influenzae Molecular ID Assessment and Plan (1) Sepsis Current Visit: Yes Status: Acute Code(s): A41.9 - SEPSIS, UNSPECIFIED ORGANISM SNOMED Code(s): 69780097 (2) Pneumonia Current Visit: Yes Status: Acute Code(s): J18.9 - PNEUMONIA, UNSPECIFIED ORGANISM SNOMED Code(s): 585277548 (3) Bacteremia Current Visit: Yes Status: Acute Code(s): R78.81 - BACTEREMIA SNOMED Code(s): 6693151 Plan: 1patient with initial hospital with sepsis in this patient who did have significant hypothermia elevated white count source is likely left-sided pn eumonia likely community-acquired. 2patient with haemophilus influenza bacteremia source likely pneumonia. 3patient sputum is growing Lizzy more likely colonizer and no need for antifungal 4patient did have worsening of the white count could be related to oropharyngeal paresis and he did have evidence of thrush we will add nystatin swish and swallow repeat a chest x-ray to make sure no evidence of any worsening pneumonia continue with Rocephin Dictation was produced using [employer] dictation software. please excuse any grammatical, word or spelling errors. Time with Patient: Less than 30
[2024-05-03] MEDS ORDERED: Potassium Replacement Protocol 1 EACH MISC MISCELLANE PRN ×2 (13:49→19:09)
[2024-05-03] MEDS: NYSTATIN 100,000 UNIT/ML SUSP 500,000 UNIT/5 ML CUP PO SCH (14:32)
[2024-05-03 17:23] LABS: Glucose,Whole Blood 165 mg/dL (70-110)
[2024-05-03 20:13] LABS: Glucose,Whole Blood 193 mg/dL (70-110)
--- NOTE | 2024-05-03 22:21 | XR ---
EXAMINATION TYPE: XR chest 2V DATE OF EXAM: 05/03/2024 COMPARISON: 05/02/2024 INDICATION: Pneumonia TECHNIQUE: Frontal and lateral views of the chest are obtained. FINDINGS: The heart size is normal. The pulmonary vasculature is normal. There is increase density within the upper outer right chest. Loculated effusion or mass should be co nsidered. Right lower lobe infiltrate is present. This is increasing from comparison. Small right ple ural effusion is likely present.. IMPRESSION: 1. Patchy infiltrate increasing at the right base with a small right pleural effusion. Correlate for pneumonia. 2. Loculated effusion or pleural thickening along the upper outer right chest is present. Follow-up i s recommended. [facility], Workstation: [facility], 05/03/2024 10:19 PM
[2024-05-04 02:40] LABS: Glucose,Whole Blood 237 mg/dL (70-110)
[2024-05-04 02:41] LABS: Anisocytosis Slight; HCT 35.7 % (39.0-53.0); HGB 11.4 gm/dL (13.0-17.5); MCH 26.3 pg (25.0-35.0); MCHC 32.1 g/dL (31.0-37.0); Mean Platelet Volume 7.9; Microcytosis Slight; Platelet Count 273 k/uL (150-450); RBC 4.36 m/uL (4.30-5.90); RDW 17.3 % (11.5-15.5); WBC 17.2 k/uL (3.8-10.6)
[2024-05-04 02:54] LABS: African American GFR (CKD) >90 (>60 ml/min/1.73 sqM); Anion Gap 5 mmol/L; Blood Urea Nitrogen 11 mg/dL (9-20); Calcium 7.7 mg/dL (8.4-10.2); Carbon Dioxide 24 mmol/L (22-30); Chloride 107 mmol/L (98-107); Glucose 247 mg/dL (74-99); Non-African American GFR(CKD) >90 (>60 ml/min/1.73 sqM); Potassium 3.4 mmol/L (3.5-5.1); Sodium 136 mmol/L (137-145)
[2024-05-04 07:28] LABS: Glucose,Whole Blood 147 mg/dL (70-110)
[2024-05-04] MEDS ORDERED: IPRATROPIUM-ALBUTEROL 3 ML NEB INHALATION PRN (08:43)
[2024-05-04] MEDS: IPRATROPIUM-ALBUTEROL 3 ML NEB INHALATION SCH (11:25)
--- NOTE | 2024-05-04 11:34 | P.PN ---
Subjective Progress Note Date: 05/04/24 Hospital course 68 year old M with PMH of type 1 DM presents to the ED for unresponsiveness and altered mental status. He was found unresponsive at a closed custard shop. Family that lived close to the shop had noted him sitting outside with his head down since 8AM. In the ED he underwent extensive evaluation. T 85.8F, BP 108/55, RR 26, HR 51, 98% on RA. CBC, Coag panel, CMP significant for WBC 38.6, Plt 506, Na 122, Cl 91, bicarb < 5, BUN 45, Cr 1.92, glu 873, alk phos 162. Lactic acid 3.5. Mag 3. VBG pH < 6.82, pCO2 23. UA negative LE or nitrite. UDS neg. Salicylate, Acetaminophen, EtOH neg. Acetone positive. EKG sinus bradycardia. CT brain no acute process. Patient was bolused 1L NS, started on insulin drip and admitted to ICU for management of DKA. Started on Unasyn empirically for sepsis. CXR showed L basilar opacity, BCx + for H. influenza. Antibiotics switched to Rocephin. Insulin drip transitioned to SQ insulin 04/30. Patient seen this morning. He denies any acute complaints. No other acute issues overnight. 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 influenzae bacteremia Likely source is pneumonia WBC this morning 17.2 which is improving. Continue with IV Rocephin 2 g every 24 hours I discussed with infectious disease who said patient can be discharged with oral antibiotics Trend CBC. If WBC improving tomorrow we will plan on discharge. Oral thrush Patient started on nystatin swish and swallow Hypokalemia Potassium this morning is 3.4. Will give 40 mill equivalents of potassium ch loride Hypophosphatemia Resolved Pseudohyponatremia Resolved Macrocytic anemia Stable Acute kidney injury Resolved Lactic acidosis Resolved DVT prophylaxis: Subcu heparin Anticipate patient will be ready for discharge in next 24 hours Objective - Vital Signs Vital signs: Vital Signs Temp 98.1 F 05/04/24 07:35 Pulse 90 05/04/24 08:00 Resp 16 05/04/24 08:00 BP 120/71 05/04/24 07:35 Pulse Ox 95 05/04/24 07:35 FiO2 Intake & Output 05/03/24 05/04/24 05/04/24 18:59 06:59 18:59 Intake Total 658 Balance 658 Intake: Oral 658 Other: Voiding Method Toilet Toilet Urinal Urinal Diaper Diaper # Voids 2 - Labs CBC & Chem 7: 05/04/24 02:24 05/04/24 02:24 Labs: Abnormal Lab Results - Last 24 Hours (Table) 05/03/24 05/03/24 05/03/24 Range/Units 12:10 12:50 17:21 WBC (3.8-10.6) k/uL Hgb (13.0-17.5) gm/dL Hct (39.0-53.0) % RDW (11.5-15.5) % Sodium (137-145) mmol/L Potassium 3.3 L (3.5-5.1) mmol/L Creatinine (0.66-1.25) mg/dL Glucose (74-99) mg/dL POC Glucose (mg/dL) 278 H 165 H (70-110) mg/dL Calcium (8.4-10.2) mg/dL 05/03/24 05/04/24 05/04/24 Range/Units 20:11 02:24 02:24 WBC 17.2 H (3.8-10.6) k/uL Hgb 11.4 L (13.0-17.5) gm/dL Hct 35.7 L (39.0-53.0) % RDW 17.3 H (11.5-15.5) % Sodium 136 L (137-145) mmol/L Potassium 3.4 L (3.5-5.1) mmol/L Creatinine 0.44 L (0.66-1.25) mg/dL Glucose 247 H (74-99) mg/dL POC Glucose (mg/dL) 193 H (70-110) mg/dL Calcium 7.7 L (8.4-10.2) mg/dL 05/04/24 05/04/24 Range/Units 02:36 07:27 WBC (3.8-10.6) k/uL Hgb (13.0-17.5) gm/dL Hct (39.0-53.0) % RDW (11.5-15.5) % Sodium (137-145) mmol/L Potassium (3.5-5.1) mmol/L Creatinine (0.66-1.25) mg/dL Glucose (74-99) mg/dL POC Glucose (mg/dL) 237 H 147 H (70-110) mg/dL Calcium (8.4-10.2) mg/dL Microbiology - Last 24 Hours (Table) 05/01/24 11:05 Gram Stain - Final Sputum Sputum Culture - Final Lizzy albicans
[2024-05-04] MEDS: POTASSIUM CHLORIDE ER 20 MEQ TAB.ER PO STA (12:36)
[2024-05-04 12:37] LABS: Glucose,Whole Blood 237 mg/dL (70-110)
--- NOTE | 2024-05-04 12:57 | P.PN ---
Subjective Progress Note Date: 05/04/24 This is a 68-year-old white male with history of type 1 diabetes, presented to the ER with altered mental status, picture of metabolic encephalopathy, patient was actually in the ER the day before with symptoms of acute viral illness mostly cough, he had no fever, patient had negative workup and he was discharged home from the ER. The following day which is yesterday patient was found behind [employer] shop laying unresponsive and seen by bystanders. EMS was notified, patient was brought into the ER and he was noted to have acute diabetic ketoacidosis with hyperglycemia with sugar as high as over 600 his ketones were positive. Patient had significant anion gap metabolic acidosis with venous blood gas showing pH less than 6.82. Patient was placed on bicarb drip he was also placed on the DKA protocol, admitted to the ICU, and I saw the patient today on consultation, remains on insulin drip at 9.33 units/h patient is receiving D5 4 5 at 150 cc/h patient is empirically on Unasyn and he is on bi carb drip which I have discontinued this morning. His labs today showed bicarb of 17 potassium 3.3 anion gap is 6 BUN 31 creatinine 0.72. Blood sugar was 309 this morning. Drug screen came back basically unremarkableWBC count is 17.9 hemoglobin is 12.6, on admission the patient had WBC count of 25.9. Chest x-ray is suggestive of left lower lobe pneumonia and he does have right basilar atelectasis. Has patient is presently on Unasyn. CT of the brain came back unremarkable The patient is seen today May 01, 2024 in follow-up in the intensive care unit. He is awake and alert in no acute distress. He is maintaining O2 saturations in the 90s on room air. He has been afebrile. Hemodynamically stable. White count 11.9. Hemoglobin 11.5. Platelets 207. Sodium 133. Potassium 3.3. Chloride 112. Bicarb 18. BUN 14. Creatinine 0.42. Glucose 203. He is currently on ceftriaxone. He has been transition to Levemir and NovoLog sliding scale. Heparin for DVT prophylaxis. The patient is seen today May 02, 2024 in follow-up on the regular medical floor. He was transferred out of the intensive care unit yesterday. He is currently resting in bed. Awake and alert in no acute distress. He is maintaining O2 saturations in the 90s on room air. No IV fluids. Blood culture positive for haemophilus influenza. Sputum culture pending. He is currently on ceftriaxone. White count 16.2. Hemoglobin 11.9. Platelets 236. Sodium 135. Potassium 3.4. Bicarb 17. BUN 10. Creatinine 0.49. Glucose 185. He has been transition to Levemir and NovoLog sliding scale. The patient is seen today May 03, 2024 in follow-up on the regular medical floor. He is currently sitting up in bed having breakfast. Awake and alert in no acute distress. He is maintaining good O2 saturations in the 90s on room air. No IV fluids. He is currently afebrile. Hemodynamically stable. White count 22.3. Hemoglobin 12.6. Platelets 274. Sodium 136. Potassium 3.4. Bicarb 19. BUN 11. Creatinine 0.49. Glucose 244. He is continued on ceftriaxone. Heparin for DVT prophylaxis. Protonix for GI prophylaxis. Maintained on Levemir and NovoLog sliding scale. Chest x-ray shows a small right pleural effusion with patchy basilar infiltrate. The patient is seen today May 04, 2024 in follow-up on the regular medical floor. He is awake and alert in no acute distress. Maintaining O2 saturations in the 90s on room air. He has been afebrile. Hemodynamically stable. He has developed a loose congested cough. This x-ray had revealed patchy infiltrate in the right lung base with a small right pleural effusion. Loculated effusion in the right upper chest. Him culture was positive for Lizzy. Blood cultures positive for haemophilus influenza. White count 17.2. Hemoglobin 11.4. Platelets 273. Sodium 136. Potassium 3.4. Bicarb 24. BUN 11. Creatinine 0.44. Glucose 247. From for DVT prophylaxis. Remains on Levemir and NovoLog sliding scale. Objective - Vital Signs Vital signs: Vital Signs Temp 98.8 F 05/04/24 12:14 Pulse 85 05/04/24 12:14 Resp 16 05/04/24 12:14 BP 117/75 05/04/24 12:14 Pulse Ox 95 05/04/24 12:14 FiO2 Intake & Output 05/03/24 05/04/24 05/04/24 18:59 06:59 18:59 Intake Total 658 Balance 658 Intake: Oral 658 Other: Voiding Method Toilet Toilet Urinal Urinal Diaper Diaper # Voids 2 2 # Bowel Movements 1 - Exam GENERAL EXAM: Alert, 68-year-old male, on room air, in no apparent distress. HEAD: Normocephalic. EYES: Normal reaction of pupils, equal size. NOSE: Clear with pink turbinates. THROAT: No erythema or exudates. NECK: No masses, no JVD. CHEST: No chest wall deformity. LUNGS: Equal air entry with no crackles, wheeze, rhonchi or dullness. CVS: S1 and S2 normal with no audible murmur, regular rhythm. ABDOMEN: No hepatosplenomegaly, normal bowel sounds, no guarding or rigidity. SPINE: No scoliosis or deformity SKIN: No rashes CENTRAL NERVOUS SYSTEM: No focal deficits, tone is normal in all 4 extremities. EXTREMITIES: There is no peripheral edema. No clubbing, no cyanosis. Peripheral pulses are intact. - Labs CBC & Chem 7: 05/04/24 02:24 05/04/24 02:24 Labs: Abnormal Lab Results - Last 24 Hours (Table) 05/03/24 05/03/24 05/03/24 Range/Units 12:50 17:21 20:11 WBC (3.8-10.6) k/uL Hgb (13.0-17.5) gm/dL Hct (39.0-53.0) % RDW (11.5-15.5) % Sodium (137-145) mmol/L Potassium 3.3 L (3.5-5.1) mmol/L Creatinine (0.66-1.25) mg/dL Glucose (74-99) mg/dL POC Glucose (mg/dL) 165 H 193 H (70-110) mg/dL Calcium (8.4-10.2) mg/dL 05/04/24 05/04/24 05/04/24 Range/Units 02:24 02:24 02:36 WBC 17.2 H (3.8-10.6) k/uL Hgb 11.4 L (13.0-17.5) gm/dL Hct 35.7 L (39.0-53.0) % RDW 17.3 H (11.5-15.5) % Sodium 136 L (137-145) mmol/L Potassium 3.4 L (3.5-5.1) mmol/L Creatinine 0.44 L (0.66-1.25) mg/dL Glucose 247 H (74-99) mg/dL POC Glucose (mg/dL) 237 H (70-110) mg/dL Calcium 7.7 L (8.4-10.2) mg/dL 05/04/24 05/04/24 Range/Units 07:27 12:33 WBC (3.8-10.6) k/uL Hgb (13.0-17.5) gm/dL Hct (39.0-53.0) % RDW (11.5-15.5) % Sodium (137-145) mmol/L Potassium (3.5-5.1) mmol/L Creatinine (0.66-1.25) mg/dL Glucose (74-99) mg/dL POC Glucose (mg/dL) 147 H 237 H (70-110) mg/dL Calcium (8.4-10.2) mg/dL Microbiology - Last 24 Hours (Table) 05/01/24 11:05 Gram Stain - Final Sputum Sputum Culture - Final Lizzy albicans Assessment and Plan Assessment: Acute diabetic ketoacidosis, recovered Acute left lower lobe pneumonia and right lower lobe atelectasis/possible pneumonia suspect some component of aspiration Bacteremia secondary to haemophilus influenza, initiated on ceftriaxone Pseudohyponatremia on presentation related to elevated blood sugar History of type 1 diabetes acute kidney injury most likely secondary to hypovolemia Hypothermia on presentation most likely secondary to exposure Acute metabolic encephalopathy, resolved Plan: The patient was seen and evaluated Chest x-ray, labs and medications reviewed Continue DuoNeb inhalations Stable and on room air Antibiotics per ID service Plan is to return to the custodial at discharge This patient was seen independently by the pulmonary nurse practitioner addressing pulmonary issues I have personally seen and examined the patient, performed the documentation and the assessment and plan as written. Number of minutes spent on the visit: 23 Dictation was produced using [employer] dictation software. Please excuse any grammatical, word or spelling errors.
--- NOTE | 2024-05-04 14:24 | P.PN ---
Subjective Progress Note Date: 05/04/24 Principal diagnosis: Reason for follow-up with same from haemophilus influenza bacteremia/pneumonia Patient is a 68-year-old male with a past medical history significant for diabetes mellitus osteoarthritis patient has been brought to the hospital after the patient was found laying behind a custard shop initiate admission to the ICU for DKA he did have a haemophilus bacteremia prompting this consultation. On today's evaluation that is 05/04/2024,the patient remains to be afebrile, patient is on room air not requiring supplemental oxygen and denies any shortness of breath no chest pain and cough has decreased in intensity.Patient denies having any nausea or vomiting, no abdominal pain and no diarrhea has been reported. Patient white count is down to 17.2 creatinine 0.44 Objective - Vital Signs Vital signs: Vital Signs Temp 98.8 F 05/04/24 12:14 Pulse 85 05/04/24 12:14 Resp 16 05/04/24 12:14 BP 117/75 05/04/24 12:14 Pulse Ox 95 05/04/24 12:14 FiO2 Intake & Output 05/03/24 05/04/24 05/04/24 18:59 06:59 18:59 Intake Total 658 Balance 658 Intake: Oral 658 Other: Voiding Method Toilet Toilet Urinal Urinal Diaper Diaper # Voids 2 2 # Bowel Movements 1 - Exam GENERAL DESCRIPTION: An elderly male lying in bed in no distress RESPIRATORY SYSTEM: Unlabored breathing , decreased breath sounds at bases HEART: S1 S2 regular rate and rhythm , ABDOMEN: Soft , no tenderness EXTREMITIES: No edema feet - Labs CBC & Chem 7: 05/04/24 02:24 05/04/24 02:24 Labs: Abnormal Lab Results - Last 24 Hours (Table) 05/03/24 05/03/24 05/04/24 Range/Units 17:21 20:11 02:24 WBC 17.2 H (3.8-10.6) k/uL Hgb 11.4 L (13.0-17.5) gm/dL Hct 35.7 L (39.0-53.0) % RDW 17.3 H (11.5-15.5) % Sodium (137-145) mmol/L Potassium (3.5-5.1) mmol/L Creatinine (0.66-1.25) mg/dL Glucose (74-99) mg/dL POC Glucose (mg/dL) 165 H 193 H (70-110) mg/dL Calcium (8.4-10.2) mg/dL 05/04/24 05/04/24 05/04/24 Range/Units 02:24 02:36 07:27 WBC (3.8-10.6) k/uL Hgb (13.0-17.5) gm/dL Hct (39.0-53.0) % RDW (11.5-15.5) % Sodium 136 L (137-145) mmol/L Potassium 3.4 L (3.5-5.1) mmol/L Creatinine 0.44 L (0.66-1.25) mg/dL Glucose 247 H (74-99) mg/dL POC Glucose (mg/dL) 237 H 147 H (70-110) mg/dL Calcium 7.7 L (8.4-10.2) mg/dL 05/04/24 Range/Units 12:33 WBC (3.8-10.6) k/uL Hgb (13.0-17.5) gm/dL Hct (39.0-53.0) % RDW (11.5-15.5) % Sodium (137-145) mmol/L Potassium (3.5-5.1) mmol/L Creatinine (0.66-1.25) mg/dL Glucose (74-99) mg/dL POC Glucose (mg/dL) 237 H (70-110) mg/dL Calcium (8.4-10.2) mg/dL Assessment and Plan (1) Sepsis Current Visit: Yes Status: Acute Code(s): A41.9 - SEPSIS, UNSPECIFIED ORGANISM SNOMED Code(s): 56093431 (2) Pneumonia Current Visit: Yes Status: Acute Code(s): J18.9 - PNEUMONIA, UNSPECIFIED ORGANISM SNOMED Code(s): 493635552 (3) Bacteremia Current Visit: Yes Status: Acute Code(s): R78.81 - BACTEREMIA SNOMED Code(s): 9053182 Plan: 1patient with initial hospital with sepsis in this patient who did have significant hypothermia elevated white count source is likely left-sided pneum onia likely community-acquired. 2patient with haemophilus influenza bacteremia source likely pneumonia. 3patient sputum is growing Lizzy more likely colonizer, 4patient white count did improve with addition of nystatin swish and swallow x- ray with left-sided pneumonia we will continue with Rocephin 2 g daily while inpatient able to finish therapy with Ceftin 500 mg twice a day for 2 weeks on discharge discussed with admitting physician Dictation was produced using [employer] dictation software. please excuse any grammatical, word or spelling errors. Time with Patient: Less than 30
[2024-05-04 17:27] LABS: Glucose,Whole Blood 119 mg/dL (70-110)
[2024-05-04] MEDS: INSULIN ASPART (NovoLOG) 100 UNIT/ML VIAL SQ SCH ×2 (17:28→17:49)
[2024-05-04 20:12] LABS: Glucose,Whole Blood 251 mg/dL (70-110)
[2024-05-05 01:09] LABS: Glucose,Whole Blood 166 mg/dL (70-110)
[2024-05-05 07:10] LABS: Glucose,Whole Blood 243 mg/dL (70-110)
[2024-05-05] MEDS: CEFDINIR 300 MG CAP PO SCH (09:38)
[2024-05-05 10:27] LABS: HCT 34.3 % (39.6-50.0); HGB 10.8 g/dL (13.0-17.0); MCH 25.5 pg (27.0-32.0); MCHC 31.5 g/dL (32.0-37.0); MCV 80.9 FL (80.0-97.0); Mean Platelet Volume 9.8 FL (9.5-12.2); NRBC Per 100 WBC 0.02 X 10*3/uL (0.00-0.01); Platelet Count 279 X 10*3/uL (140-440); RBC 4.24 X 10*6/uL (4.40-5.60); RDW 17.2 % (11.5-14.5); WBC 13.44 X 10*3/uL (4.50-10.00)
[2024-05-05 10:38] LABS: BUN/Creat Ratio 15.17 Ratio (12.00-20.00); Blood Urea Nitrogen 9.1 mg/dL (9.0-27.0); Calcium 7.6 mg/dL (8.7-10.3); Carbon Dioxide 23.2 mmol/L (21.6-31.8); Chloride 105 mmol/L (96-109); Glucose 244 mg/dL (70-110); Potassium 3.8 mmol/L (3.5-5.5); Sodium 141 mmol/L (135-145)
[2024-05-05 12:16] VITALS: PULSE 97
[2024-05-05 12:21] LABS: Glucose,Whole Blood 252 mg/dL (70-110)
--- NOTE | 2024-05-05 12:21 | P.PN ---
Subjective Progress Note Date: 05/05/24 This is a 68-year-old white male with history of type 1 diabetes, presented to the ER with altered mental status, picture of metabolic encephalopathy, patient was actually in the ER the day before with symptoms of acute viral illness mostly cough, he had no fever, patient had negative workup and he was discharged home from the ER. The following day which is yesterday patient was found behind [employer] shop laying unresponsive and seen by bystanders. EMS was notified, patient was brought into the ER and he was noted to have acute diabetic ketoacidosis with hyperglycemia with sugar as high as over 600 his ketones were positive. Patient had significant anion gap metabolic acidosis with venous blood gas showing pH less than 6.82. Patient was placed on bicarb drip he was also placed on the DKA protocol, admitted to the ICU, and I saw the patient today on consultation, remains on insulin drip at 9.33 units/h patient is receiving D5 4 5 at 150 cc/h patient is empirically on Unasyn and he is on bi carb drip which I have discontinued this morning. His labs today showed bicarb of 17 potassium 3.3 anion gap is 6 BUN 31 creatinine 0.72. Blood sugar was 309 this morning. Drug screen came back basically unremarkableWBC count is 17.9 hemoglobin is 12.6, on admission the patient had WBC count of 25.9. Chest x-ray is suggestive of left lower lobe pneumonia and he does have right basilar atelectasis. Has patient is presently on Unasyn. CT of the brain came back unremarkable The patient is seen today May 01, 2024 in follow-up in the intensive care unit. He is awake and alert in no acute distress. He is maintaining O2 saturations in the 90s on room air. He has been afebrile. Hemodynamically stable. White count 11.9. Hemoglobin 11.5. Platelets 207. Sodium 133. Potassium 3.3. Chloride 112. Bicarb 18. BUN 14. Creatinine 0.42. Glucose 203. He is currently on ceftriaxone. He has been transition to Levemir and NovoLog sliding scale. Heparin for DVT prophylaxis. The patient is seen today May 02, 2024 in follow-up on the regular medical floor. He was transferred out of the intensive care unit yesterday. He is currently resting in bed. Awake and alert in no acute distress. He is maintaining O2 saturations in the 90s on room air. No IV fluids. Blood culture positive for haemophilus influenza. Sputum culture pending. He is currently on ceftriaxone. White count 16.2. Hemoglobin 11.9. Platelets 236. Sodium 135. Potassium 3.4. Bicarb 17. BUN 10. Creatinine 0.49. Glucose 185. He has been transition to Levemir and NovoLog sliding scale. The patient is seen today May 03, 2024 in follow-up on the regular medical floor. He is currently sitting up in bed having breakfast. Awake and alert in no acute distress. He is maintaining good O2 saturations in the 90s on room air. No IV fluids. He is currently afebrile. Hemodynamically stable. White count 22.3. Hemoglobin 12.6. Platelets 274. Sodium 136. Potassium 3.4. Bicarb 19. BUN 11. Creatinine 0.49. Glucose 244. He is continued on ceftriaxone. Heparin for DVT prophylaxis. Protonix for GI prophylaxis. Maintained on Levemir and NovoLog sliding scale. Chest x-ray shows a small right pleural effusion with patchy basilar infiltrate. The patient is seen today May 04, 2024 in follow-up on the regular medical floor. He is awake and alert in no acute distress. Maintaining O2 saturations in the 90s on room air. He has been afebrile. Hemodynamically stable. He has developed a loose congested cough. This x-ray had revealed patchy infiltrate in the right lung base with a small right pleural effusion. Loculated effusion in the right upper chest. Him culture was positive for Lizzy. Blood cultures positive for haemophilus influenza. White count 17.2. Hemoglobin 11.4. Platelets 273. Sodium 136. Potassium 3.4. Bicarb 24. BUN 11. Creatinine 0.44. Glucose 247. From for DVT prophylaxis. Remains on Levemir and NovoLog sliding scale. The patient is seen today May 05, 2024 in follow-up on the regular medical floor. He is sitting up at bed. Awake and alert in no acute distress. Denies any worsening shortness of breath, cough or congestion. He is maintaining good O2 saturations in the 90s on room air. White count 13.4. Hemoglobin 10.8. Platelets 279. Sodium 141. Potassium 3.8. Bicarb 23. BUN 9. Creatinine 0.6. Glucose 244. He remains on Rocephin. Continued on bronchodilators. Heparin for DVT prophylaxis. Remains on Levemir and NovoLog sliding scale. He is anxious to get back to the retirement before he loses his bed. Objective - Vital Signs Vital signs: Vital Signs Temp 98.7 F 05/05/24 07:32 Pulse 96 05/05/24 11:08 Resp 16 05/05/24 07:32 BP 137/82 05/05/24 07:32 Pulse Ox 95 05/05/24 07:32 FiO2 Intake & Output 05/04/24 05/05/24 05/05/24 18:59 06:59 18:59 Intake Total 600 Balance 600 Weight 83.3 kg Intake: Oral 600 Other: Voiding Method Toilet Toilet Toilet Urinal Urinal Urinal Diaper Diaper Diaper # Voids 4 # Bowel Movements 1 - Exam GENERAL EXAM: Alert, 68-year-old male, sitting up in bed, having breakfast, on room air, in no apparent distress. HEAD: Normocephalic. EYES: Normal reaction of pupils, equal size. NOSE: Clear with pink turbinates. THROAT: No erythema or exudates. NECK: No masses, no JVD. CHEST: No chest wall deformity. LUNGS: Equal air entry with no crackles, wheeze, rhonchi or dullness. CVS: S1 and S2 normal with no audible murmur, regular rhythm. ABDOMEN: No hepatosplenomegaly, normal bowel sounds, no guarding or rigidity. SPINE: No scoliosis or deformity SKIN: No rashes CENTRAL NERVOUS SYSTEM: No focal deficits, tone is normal in all 4 extremities. EXTREMITIES: There is no peripheral edema. No clubbing, no cyanosis. Peripheral pulses are intact. - Labs CBC & Chem 7: 05/05/24 06:41 05/05/24 06:41 Labs: Abnormal Lab Results - Last 24 Hours (Table) 05/04/24 05/04/24 05/04/24 Range/Units 12:33 17:25 20:09 WBC (4.50-10.00) X 10*3/uL RBC (4.40-5.60) X 10*6/uL Hgb (13.0-17.0) g/dL Hct (39.6-50.0) % MCH (27.0-32.0) pg MCHC (32.0-37.0) g/dL RDW (11.5-14.5) % NRBC/100 WBC Diff (0.00-0.01) X 10*3/uL Anion Gap (4.00-12.00) mmol/L Glucose (70-110) mg/dL POC Glucose (mg/dL) 237 H 119 H 251 H (70-110) mg/dL Calcium (8.7-10.3) mg/dL 05/05/24 05/05/24 05/05/24 Range/Units 01:08 06:41 06:41 WBC 13.44 H (4.50-10.00) X 10*3/uL RBC 4.24 L (4.40-5.60) X 10*6/uL Hgb 10.8 L (13.0-17.0) g/dL Hct 34.3 L (39.6-50.0) % MCH 25.5 L (27.0-32.0) pg MCHC 31.5 L (32.0-37.0) g/dL RDW 17.2 H (11.5-14.5) % NRBC/100 WBC Diff 0.02 H (0.00-0.01) X 10*3/uL Anion Gap 12.80 H (4.00-12.00) mmol/L Glucose 244 H (70-110) mg/dL POC Glucose (mg/dL) 166 H (70-110) mg/dL Calcium 7.6 L (8.7-10.3) mg/dL 05/05/24 Range/Units 07:08 WBC (4.50-10.00) X 10*3/uL RBC (4.40-5.60) X 10*6/uL Hgb (13.0-17.0) g/dL Hct (39.6-50.0) % MCH (27.0-32.0) pg MCHC (32.0-37.0) g/dL RDW (11.5-14.5) % NRBC/100 WBC Diff (0.00-0.01) X 10*3/uL Anion Gap (4.00-12.00) mmol/L Glucose (70-110) mg/dL POC Glucose (mg/dL) 243 H (70-110) mg/dL Calcium (8.7-10.3) mg/dL Assessment and Plan Assessment: Acute diabetic ketoacidosis, recovered Acute left lower lobe pneumonia and right lower lobe atelectasis/possible pneumonia suspect some component of aspiration Bacteremia secondary to haemophilus influenza, initiated on ceftriaxone Pseudohyponatremia on presentation related to elevated blood sugar History of type 1 diabetes acute kidney injury most likely secondary to hyp ovolemia Hypothermia on presentation most likely secondary to exposure Acute metabolic encephalopathy, resolved Plan: The patient was seen and evaluated Labs and medications reviewed Stable and on room air Transitioned to oral antibiotics The plan is to return to the retirement, possibly today This patient was seen independently by the pulmonary nurse practitioner addressing pulmonary issues I have personally seen and examined the patient, performed the documentation and the assessment and plan as written. Number of minutes spent on the visit: 24 Dictation was produced using [employer] dictation software. Please excuse any grammatical, word or spelling errors.
[2024-05-05 12:52] LABS: Basophils # (A) 0.06 X 10*3/uL (0.00-0.10); Basophils % (A) 0.4 %; Eosinophils # (A) 0.16 X 10*3/uL (0.04-0.35); Eosinophils % (A) 1.2 %; Lymphocytes # (A) 2.36 X 10*3/uL (0.90-5.00); Lymphocytes % (A) 17.6 %; Monocytes # (A) 1.57 X 10*3/uL (0.20-1.00); Monocytes % (A) 11.7 %; Neutrophils # (A) 8.73 X 10*3/uL (1.80-7.70); Neutrophils % (A) 64.9 %; RBC Morphology Normal (Normal)
--- NOTE | 2024-05-05 12:57 | P.DS ---
Providers Date of admission: 04/29/24 18:34 Attending physician: Neel Sanderson Consults: 04/29/24 18:33 Consult Physician Stat Consulting Provider: Demetrius Tierney Consult Reason/Comments: icu patient Do you want consulting provider notified?: Yes 05/01/24 12:13 Consult Physician Stat Consulting Provider: Tarun Gimenez Consult Reason/Comments: H. flu bacteremia Do you want consulting provider notified?: Yes Primary care physician: Stated None Hospital Course: Discharge Diagnosis: Acute metabolic encephalopathy: Resolved Diabetic ketoacidosis: Resolved Sepsis due to H influenza bacteremia likely source is pneumonia Oral thrush Hypokalemia: Repleted Hypophosphatemia: Resolved Pseudohyponatremia: Resolved Macrocytic anemia: Stable Acute kidney injury: Resolved Lactic acidosis: Resolved Hospital Course: 68 year old M with PMH of type 1 DM presents to the ED for unresponsiveness and altered mental status. He was found unresponsive at a closed custard shop. Family that lived close to the shop had noted him sitting outside with his head down since 8AM. In the ED he underwent extensive evaluation. T 85.8F, BP 108/55, RR 26, HR 51, 98% on RA. CBC, Coag panel, CMP significant for WBC 38.6, Plt 506, Na 122, Cl 91, bicarb < 5, BUN 45, Cr 1.92, glu 873, alk phos 162. Lactic acid 3.5. Mag 3. VBG pH < 6.82, pCO2 23. UA negative LE or nitrite. UDS neg. Salicylate, Acetaminophen, EtOH neg. Acetone positive. EKG sinus bradycardia. CT brain no acute process. Patient was bolused 1L NS, started on insulin drip and admitted to ICU for management of DKA. Started on Unasyn empirically for sepsis. CXR showed L basilar opacity. Blood culture came back positive for H. influenza. Antibiotics switched to Rocephin. Insulin drip transitioned to SQ insulin on 04/30. Patient's mental status improved. Patient reported that he was running out of his insulin so was using less of his insulin. Patient also said that he is homeless and sometimes has difficult access to his insulin. I refilled patient's insulin. I also counseled him on compliance. At the time of discharge patient WBC was trending down. Infectious disease recommended cefdinir for 2 weeks. Patient was deemed stable for discharge. Patient seen and examined at bedside.[] Vital signs reviewed and stable. 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 Patient discharged on [05/05/2024] Patient Condition at Discharge: Poor Plan - Discharge Summary Discharge Rx Participant: Yes New Discharge Prescriptions: New Cefdinir [Omnicef] 300 mg PO BID 14 Days #28 cap Nystatin 100,000 Unit/ml Susp [Mycostatin Oral Susp] 500,000 unit PO QID 7 Days #1 each Changed Insulin Glargine,Hum.rec.anlog [Lantus Solostar Pen] 24 units SQ DAILY 30 Days #100 each Insulin Lispro [humaLOG Kwikpen] 12 unit SQ AC-TID 30 Days #100 each Discontinued Semaglutide [Ozempic] 1 mg SQ Q7D Losartan [Cozaar] 50 mg PO DAILY Insulin Glargine,Hum.rec.anlog [Lantus Solostar Pen] 45 units SQ DAILY Fenofibrate Nanocrystallized [Fenofibrate] 48 mg PO DAILY Discharge Medication List Cefdinir [Omnicef] 300 mg PO BID 14 Days #28 cap 05/05/24 [Rx] Insulin Glargine,Hum.rec.anlog [Lantus Solostar Pen] 24 units SQ DAILY 30 Days #100 each 05/05/24 [Rx] Insulin Lispro [humaLOG Kwikpen] 12 unit SQ AC-TID 30 Days #100 each 05/05/24 [Rx] Nystatin 100,000 Unit/ml Susp [Mycostatin Oral Susp] 500,000 unit PO QID 7 Days #1 each 05/05/24 [Rx] Follow up Appointment(s)/Referral(s): None,Stated [Primary Care Provider] - 1-2 days Activity/Diet/Wound Care/Special Instructions: 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 Discharge/Stand Alone Forms: [facility], [facility], [facility] Pamphlet, Who Do I Call?, Community Resources, Outpatient Counseling, Area PCPs Discharge Disposition: HOME SELF-CARE
[2024-05-05 13:04] VITALS: BP 153/75; RESP 20; TEMP 98.1
--- NOTE | 2024-05-05 13:11 | P.PN ---
Subjective Progress Note Date: 05/05/24 Principal diagnosis: Reason for follow-up with same from haemophilus influenza bacteremia/pneumonia Patient is a 68-year-old male with a past medical history significant for diabetes mellitus osteoarthritis patient has been brought to the hospital after the patient was found laying behind a [employer] shop initiate admission to the ICU for DKA he did have a haemophilus bacteremia prompting this consultation. On today's evaluation that is 05/05/2024, the patient continues to be afebrile, the patient is on room air and breathing comfortably, the Pt denies having any c hest pain and cough is decreased in intensity no nausea or vomiting no abdominal pain no diarrhea. Patient white count is down to 13.44 creatinine 0.6 Objective - Vital Signs Vital signs: Vital Signs Temp 98.1 F 05/05/24 12:52 Pulse 97 05/05/24 12:52 Resp 20 05/05/24 12:52 BP 153/75 05/05/24 12:52 Pulse Ox 94 L 05/05/24 12:52 FiO2 Intake & Output 05/04/24 05/05/24 05/05/24 18:59 06:59 18:59 Intake Total 600 Balance 600 Weight 83.3 kg Intake: Oral 600 Other: Voiding Method Toilet Toilet Toilet Urinal Urinal Urinal Diaper Diaper Diaper # Voids 4 # Bowel Movements 1 - Exam GENERAL DESCRIPTION: An elderly male lying in bed in no distress HEENT: Oral thrush decreased in intensity RESPIRATORY SYSTEM: Unlabored breathing , decreased breath sounds at bases HEART: S1 S2 regular rate and rhythm , ABDOMEN: Soft , no tenderness EXTREMITIES: No edema feet - Labs CBC & Chem 7: 05/05/24 06:41 05/05/24 06:41 Labs: Abnormal Lab Results - Last 24 Hours (Table) 05/04/24 05/04/24 05/05/24 Range/Units 17:25 20:09 01:08 WBC (4.50-10.00) X 10*3/uL RBC (4.40-5.60) X 10*6/uL Hgb (13.0-17.0) g/dL Hct (39.6-50.0) % MCH (27.0-32.0) pg MCHC (32.0-37.0) g/dL RDW (11.5-14.5) % Immature Gran # (0.00-0.04) X 10*3/uL Neutrophils # (1.80-7.70) X 10*3/uL Monocytes # (0.20-1.00) X 10*3/uL NRBC/100 WBC Diff (0.00-0.01) X 10*3/uL Anion Gap (4.00-12.00) mmol/L Glucose (70-110) mg/dL POC Glucose (mg/dL) 119 H 251 H 166 H (70-110) mg/dL Calcium (8.7-10.3) mg/dL 05/05/24 05/05/24 05/05/24 Range/Units 06:41 06:41 07:08 WBC 13.44 H (4.50-10.00) X 10*3/uL RBC 4.24 L (4.40-5.60) X 10*6/uL Hgb 10.8 L (13.0-17.0) g/dL Hct 34.3 L (39.6-50.0) % MCH 25.5 L (27.0-32.0) pg MCHC 31.5 L (32.0-37.0) g/dL RDW 17.2 H (11.5-14.5) % Immature Gran # 0.56 H (0.00-0.04) X 10*3/uL Neutrophils # 8.73 H (1.80-7.70) X 10*3/uL Monocytes # 1.57 H (0.20-1.00) X 10*3/uL NRBC/100 WBC Diff 0.02 H (0.00-0.01) X 10*3/uL Anion Gap 12.80 H (4.00-12.00) mmol/L Glucose 244 H (70-110) mg/dL POC Glucose (mg/dL) 243 H (70-110) mg/dL Calcium 7.6 L (8.7-10.3) mg/dL 05/05/24 Range/Units 12:13 WBC (4.50-10.00) X 10*3/uL RBC (4.40-5.60) X 10*6/uL Hgb (13.0-17.0) g/dL Hct (39.6-50.0) % MCH (27.0-32.0) pg MCHC (32.0-37.0) g/dL RDW (11.5-14.5) % Immature Gran # (0.00-0.04) X 10*3/uL Neutrophils # (1.80-7.70) X 10*3/uL Monocytes # (0.20-1.00) X 10*3/uL NRBC/100 WBC Diff (0.00-0.01) X 10*3/uL Anion Gap (4.00-12.00) mmol/L Glucose (70-110) mg/dL POC Glucose (mg/dL) 252 H (70-110) mg/dL Calcium (8.7-10.3) mg/dL Assessment and Plan (1) Sepsis Current Visit: Yes Status: Acute Code(s): A41.9 - SEPSIS, UNSPECIFIED ORGANISM SNOMED Code(s): 72008140 (2) Pneumonia Current Visit: Yes Status: Acute Code(s): J18.9 - PNEUMONIA, UNSPECIFIED ORGANISM SNOMED Code(s): 860092443 (3) Bacteremia Current Visit: Yes Status: Acute Code(s): R78.81 - BACTEREMIA SNOMED Code(s): 6499464 (4) Thrush Current Visit: Yes Status: Acute Code(s): B37.0 - CANDIDAL STOMATITIS SNOMED Code(s): 39064785 (5) Leukocytosis Current Visit: Yes Status: Acute Code(s): D72.829 - ELEVATED WHITE BLOOD C ELL COUNT, UNSPECIFIED SNOMED Code(s): 924929441 Plan: 1patient with initial hospital with sepsis in this patient who did have significant hypothermia elevated white count source is likely left-sided pneumonia likely community-acquired. 2patient with haemophilus influenza bacteremia source likely pneumonia. 3patient sputum is growing Lizzy more likely colonizer, 4patient white count is trending down plan is to 7 day course of nystatin swish and swallow and a 10-day course of oral Ceftin on discharge to finish his course of therapy Dictation was produced using [employer] dictation software. please excuse any grammatical, word or spelling errors. Time with Patient: Less than 30
== END 2024-05-05 15:07 | disposition home or self-care (01) | DRG 871 ==
LOC: EC 17:21 → 2SICU 18:34 → 5NMEDONC 05-01 14:13
PROVIDERS: ADMIT Student in an Organized Health Care Education/Training Program; ATTEND Student in an Organized Health Care Education/Training Program
DX: A41.3 Sepsis due to Hemophilus influenzae (principal); E10.11 Type 1 diabetes mellitus with ketoacidosis with coma; G93.41 Metabolic encephalopathy; J69.0 Pneumonitis due to inhalation of food and vomit; Z59.01 Sheltered homelessness; B37.0 Candidal stomatitis; N17.9 Acute kidney failure, unspecified; M62.82 Rhabdomyolysis; E83.39 Other disorders of phosphorus metabolism; Z79.4 Long term (current) use of insulin; T68.XXXA Hypothermia, initial encounter; D50.8 Other iron deficiency anemias; D53.9 Nutritional anemia, unspecified; T38.3X6A Underdosing of insulin and oral hypoglycemic [antidiabetic] drugs, initial encounter; E86.0 Dehydration; E87.6 Hypokalemia; E86.1 Hypovolemia; Z91.128 Patient's intentional underdosing of medication regimen for other reason; X31.XXXA Exposure to excessive natural cold, initial encounter
CPT/HCPCS: 36415; 70450; 71045; 71046; 80048; 80051; 80053; 80143; 80179; 80306; 80320; 81001; 82009; 82550; 82565; 82803; 82947; 83036; 83605; 83735; 83930; 84100; 84132; 84145; 84520; 85025; 85027; 87040; 87070; 87205; 93005; 94640; 96360; 99291; 99292